=== PATIENT | female | born 1960 | race Caucasian/White ===

== ENCOUNTER 2017-04-27 17:59 | Emergency (ER) | payer OTHER ==
[2017-04-27 18:05] VITALS: BMI 25.8
--- NOTE | 2017-04-27 20:21 | PDOC ---
History of Present Illness - General History Source: Patient Exam Limitations: No Limitations - History of Present Illness Initial Comments: 04/27/17 20:28 The patient is a 56 year old female with significant past medical history of hypertension and GERD who presents to the ED for 6 days of right upper quadrant pain radiating to the right flank. Patient describes her pain as sharp in nature. Denies nausea, vomiting, or diarrhea. States she has somewhat of a appetite. Patient reports occasional dysuria, but no hematuria, urgency, or frequency. Unclear of fever. Patient states she is schedule for a endoscopy in a few days and is currently prepping for her procedure. The patient denies diaphoresis, chills, cough, SOB, chest pain, and palpitations. Allergies: Sulfa Social History: No alcohol, tobacco, or drug use reported. Past Surgical History: cholecystectomy PCP: Dr. Minerva Billingsley <Maia Vital - Last Filed: 04/27/17 20:28> - General History Source: Patient <Albert Holt - Last Filed: 04/27/17 22:50> - General Chief Complaint: Pain Stated Complaint: ABD PAIN Time Seen by Provider: 04/27/17 20:14 Past History <Maia Vital - Last Filed: 04/27/17 20:28> - Past Medical History HTN: Yes Suicide Attempt (Hx): No - Surgical History Cholecystectomy: Yes (2002) - Psycho/Social/Smoking Cessation Hx Anxiety: Yes Suicidal Ideation: No Smoking History: Former smoker Have you smoked in the past 12 months: No If you are a former smoker, when did you quit?: 16 years ago Information on smoking cessation initiated: No Hx Alcohol Use: No Drug/Substance Use Hx: No Substance Use Type: None <Albert Holt - Last Filed: 04/27/17 22:50> - Past Medical History Allergies/Adverse Reactions: Allergies Allergy/AdvReac Type Severity Reaction Status Date / Time Sulfa (Sulfonamide Allergy Severe Hives Verified 04/27/17 18:02 Antibiotics) Home Medications: Ambulatory Orders Fluticasone Propionate [Flonase Allergy Relief] 9.9 ml NS DAILY 04/22/15 Loratadine [Claritin -] 10 mg PO DAILY 04/22/15 Oxybutynin Chloride [Ditropan] 5 mg PO DAILY 04/22/15 Clindamycin [Cleocin -] 300 mg PO Q6HPO #28 capsule 03/20/16 Naproxen [Naprosyn -] 250 mg PO DAILY 03/20/16 Ranitidine HCl [Zantac] 150 mg PO DAILY 03/20/16 Levofloxacin [Levaquin -] 500 mg PO DAILY #7 tablet 04/27/17 Metronidazole [Flagyl] 500 mg PO BID #14 tablet 04/27/17 Oxycodone HCl/Acetaminophen [Percocet 5-325 mg Tablet] 1 - 2 tab PO Q6H #20 tablet MDD 4 04/27/17 Review of Systems - Review of Systems Able to Perform ROS?: Yes Comments:: 04/27/17 20:28 CONSTITUTIONAL: Absent: fever, no chills, no fatigue EYES: Absent: visual changes ENT: Absent: ear pain, no sore throat CARDIOVASCULAR: Absent: chest pain, no palpitations RESPIRATORY: Absent: cough, no SOB GI: +RUQ pain Absent: abdominal distension, nausea, vomiting, diarrhea, constipation , melena, hematochezia GENITOURINARY: +occasional dysuria, right flank pain Absent: frequency, urgency, hesitancy, hematuria, genital pain MUSCULOSKELETAL: Absent: back pain, no arthralgia, no myalgia SKIN: Absent: rash NEURO: Absent: headache <BharratAlexMaia - Last Filed: 04/27/17 20:28> *Physical Exam - Vital Signs Last Vital Signs Temp Pulse Resp BP Pulse Ox 98.1 F 91 H 18 160/94 100 04/27/17 18:03 04/27/17 18:03 04/27/17 18:03 04/27/17 18:03 04/27/17 18:03 - Physical Exam Comments: 04/27/17 20:28 GENERAL: Well-appearing, well-nourished. No apparent distress. HEENT: Normocephalic, atraumatic. PERRL, EOM intact. CARDIOVASCULAR: Normal S1, S2. Regular rate and rhythm. PULMONARY: Clear to auscultation bilaterally. ABDOMINAL: Soft. Non-tender. Non-distended. No rebound or guarding. No organomegaly. Normoactive bowel sounds. MUSCULOSKELETAL Normal range of motion at all joints. No bony deformities or tenderness. No CVA tenderness. EXTREMITIES: No cyanosis. No edema. No calf tenderness. SKIN: Warm, dry. No rash NEUROLOGICAL: No focal neurological deficits. <Maia Vital - Last Filed: 04/27/17 20:28> - Vital Signs Last Vital Signs Temp Pulse Resp BP Pulse Ox 98.1 F 91 H 18 160/94 100 04/27/17 18:03 04/27/17 18:03 04/27/17 18:03 04/27/17 18:03 04/27/17 18:03 <Albert Holt - Last Filed: 04/27/17 22:50> ED Treatment Course - LABORATORY CBC & Chemistry Diagram: 04/27/17 21:27 04/27/17 21:27 <Albert Holt - Last Filed: 04/27/17 22:50> Medical Decision Making - Medical Decision Making 04/27/17 22:50 Dr. Holt: The scribe's documentation has been prepared under my direction and personally reviewed by me in its entirery. I confirm that the note above accurately reflects all work, treatment, procedures, and medical decision making performed by me. <Albert Holt - Last Filed: 04/27/17 22:50> *DC/Admit/Observation/Transfer - Attestations Scribe Attestion: 04/27/17 20:28 Documentation prepared by Maia Vital, acting as medical leader for Albert Holt DO. <Maia Vital - Last Filed: 04/27/17 20:28> - Discharge Dispostion Admit: No <Albert Holt - Last Filed: 04/27/17 22:50> Diagnosis at time of Disposition: Colitis Diarrhea Qualifiers: Diarrhea type: unspecified type Qualified Code(s): R19.7 - Diarrhea, unspecified Abdominal pain Qualifiers: Abdominal location: generalized Qualified Code(s): R10.84 - Generalized abdominal pain - Discharge Dispostion Disposition: HOME Condition at time of disposition: Stable - Prescriptions Prescriptions: Metronidazole [Flagyl] 500 mg PO BID #14 tablet Levofloxacin [Levaquin -] 500 mg PO DAILY #7 tablet Oxycodone HCl/Acetaminophen [Percocet 5-325 mg Tablet] 1 - 2 tab PO Q6H #20 tablet MDD 4 - Referrals Referrals: Minerva Billingsley MD [Primary Care Provider] - Juan Mays MD [Staff Physician] - - Patient Instructions Printed Discharge Instructions: DI for Colitis Additional Instructions: Please follow up with Dr. Mays and take medication as directed.
[2017-04-27] MEDS ORDERED: LEVOFLOXACIN 500 MG IVPB 100 ML IVPB ONE (21:26)
[2017-04-27] MEDS ORDERED: METRONIDAZOLE 500 MG PREMIXED 100 ML IVPB ONE (21:26)
[2017-04-27 21:50] LABS: BASOPHIL 0.9 % (0-2.0); MCH 24.3 pg (25.7-33.7); MCHC 31.7 g/dl (32.0-36.0); MEAN CELL VOLUME 76.4 fl (80-96); NEUTROPHILS 51.3 % (42.8-82.8); PLATELET COUNT 313 K/MM3 (134-434); RDW 15.3 % (11.6-15.6)
[2017-04-27 22:22] LABS: ALBUMIN 3.2 g/dl (3.4-5.0); ALK PHOS 98 U/L (45-117); ANION GAP 7 (8-16); BILIRUBIN,TOTAL 0.3 mg/dL (0.2-1.0); CALCIUM 9.4 mg/dL (8.5-10.1); CO2 28 mmol/L (21-32); CREATININE 0.6 mg/dL (0.55-1.02); GLUCOSE,RANDOM 94 mg/dL (74-106); MAGNESIUM 2.2 mg/dL (1.8-2.4); SGOT/AST 18 U/L (15-37); SGPT/ALT 24 U/L (12-78); TOT PROT 5.8 g/dl (6.4-8.2)
[2017-04-27] MEDS ORDERED: LEVOFLOXACIN 500 MG TABLET (FP) PO ONE (22:41)
[2017-04-27] MEDS ORDERED: metroNIDAZOLE 250 MG TABLET PO ONE (22:41)
[2017-04-27] MEDS ORDERED: metroNIDAZOLE 250 MG TABLET ONE (22:44)
[2017-04-27] MEDS ORDERED: LEVOFLOXACIN 250 MG TABLET (FP) ONE (22:44)
[2017-04-27 23:21] LABS: URINE APPEARANCE CLEAR; URINE BILIRUBIN NEGATIVE (NEGATIVE); URINE BLOOD NEGATIVE (NEGATIVE); URINE COLOR YELLOW; URINE GLUCOSE (UA) NEGATIVE (NEGATIVE); URINE KETONE TRACE (NEGATIVE); URINE LEUK ESTERASE TRACE (NEGATIVE); URINE NITRITE NEGATIVE (NEGATIVE); URINE PROTEIN NEGATIVE (NEGATIVE); URINE UROBILINOGEN NEGATIVE mg/dL (0.2-1.0)
[2017-04-27 23:26] VITALS: BP 140/90; PULSE 86; TEMP 98.2
== END 2017-04-27 23:09 | disposition home or self-care (01) ==
LOC: JER 17:59
DX: K52.9 Noninfective gastroenteritis and colitis, unspecified (principal); R19.7 Diarrhea, unspecified; I10 Essential (primary) hypertension; K21.9 Gastro-esophageal reflux disease without esophagitis
CPT/HCPCS: 36415; 74176; 80053; 81003; 81015; 82150; 83690; 83735; 85025; 99282-25

== ENCOUNTER 2018-05-13 23:43 | Emergency (ER) | payer OTHER ==
[2018-05-14 00:03] VITALS: BP 130/80; PULSE 87; TEMP 98; BMI 25.7
--- NOTE | 2018-05-14 00:18 | PDOC ---
History of Present Illness - General History Source: Patient Exam Limitations: No Limitations - History of Present Illness Initial Comments: 05/14/18 01:27 The patient is a 57 year old female with past medical history of Vascular problems, L. lower extremity and back problem presents to the emergency department with thumb pain. The patient reports about a year ago, she pulled a hanging nail leading to an infection on the lateral aspect of the right 1st digit. The patient reports using 2 bactroban on the hand with improvement. The patient reports couple of weeks back the pain presented again. The patient reports following up at [facility]. The patient states she was prescribed Keflex for the hand. The patient reports being compliant with abx, takes it twice a day. The patient presents today with itchiness and irritation to the thumb Allergies: Sulfa. Social history: Former smoker. Past Surgical History: cholecystectomy PCP: Dr. Minerva Billingsley <Gretel Wahl - Last Filed: 05/14/18 01:26> <Jocelyne Ontiveros - Last Filed: 05/14/18 19:50> - General Chief Complaint: Wound Stated Complaint: FINGER INJURY Time Seen by Provider: 05/14/18 00:18 Past History <Gretel Wahl - Last Filed: 05/14/18 01:26> - Past Medical History COPD: No HTN: Yes - Surgical History Cholecystectomy: Yes (2002) - Immunization History Immunization Up to Date: Yes - Suicide/Smoking/Psychosocial Hx Smoking History: Former smoker Have you smoked in the past 12 months: No If you are a former smoker, when did you quit?: 16 years ago Information on smoking cessation initiated: No Hx Alcohol Use: No Drug/Substance Use Hx: No Substance Use Type: None <Jocelyne Ontiveros - Last Filed: 05/14/18 19:50> - Past Medical History Allergies/Adverse Reactions: Allergies Allergy/AdvReac Type Severity Reaction Status Date / Time Sulfa (Sulfonamide Allergy Severe Hives Verified 05/13/18 23:57 Antibiotics) Home Medications: Ambulatory Orders Lipase/Protease/Amylase [Madhavi Arzola 24,000 Units Capsule] 1 each PO DAILY Loratadine [Claritin] 10 mg PO PRN PRN 05/14/18 Naproxen [Naprosyn -] 250 mg PO BID 05/14/18 Oxybutynin Chloride 5 mg PO DAILY 05/14/18 Review of Systems - Review of Systems Able to Perform ROS?: Yes Comments:: 05/14/18 01:31 GENERAL/CONSTITUTIONAL: No fever or chills. No weakness. HEAD, EYES, EARS, NOSE AND THROAT: No change in vision. No ear pain or discharge. No sore throat. CARDIOVASCULAR: No chest pain or shortness of breath. RESPIRATORY: No cough, wheezing, or hemoptysis. GASTROINTESTINAL: No nausea, vomiting, diarrhea or constipation. GENITOURINARY: No dysuria, frequency, or change in urination. MUSCULOSKELETAL: (+) Pain to the right thumb. No joint or muscle swelling or pain. No neck or back pain. SKIN: No rash NEUROLOGIC: No headache, vertigo, loss of consciousness, or change in strength/ sensation. ENDOCRINE: No increased thirst. No abnormal weight change. HEMATOLOGIC/LYMPHATIC: No anemia, easy bleeding, or history of blood clots. ALLERGIC/IMMUNOLOGIC: No hives or skin allergy. <Gretel Wahl - Last Filed: 05/14/18 01:26> *Physical Exam - Vital Signs Last Vital Signs Temp Pulse Resp BP Pulse Ox 98.0 F 87 18 130/80 98 05/13/18 23:58 05/13/18 23:58 05/13/18 23:58 05/13/18 23:58 05/13/18 23:58 - Physical Exam Comments: 05/14/18 01:26 GENERAL: Awake, alert, and fully oriented, in no acute distress HEAD: No signs of trauma EYES: PERRLA, EOMI, sclera anicteric, conjunctiva clear ENT: Auricles normal inspection, hearing grossly normal, nares patent. Moist mucosa NECK: Normal ROM, supple, no lymphadenopathy, JVD, or masses LUNGS: Breath sounds equal, clear to auscultation bilaterally. No wheezes, and no crackles HEART: Regular rate and rhythm, normal S1 and S2, no murmurs, rubs or gallops ABDOMEN: Soft, nontender, normoactive bowel sounds. No guarding, no rebound. No masses EXTREMITIES: Normal range of motion, no edema. No erythema or tenderness. DP/PT pulses 2+ and symmetric. Warm and well perfused. (+) Finger: R. lateral aspect proximal nail bed little mass tissue with whitish pus with tenderness. NEUROLOGICAL: Moves all extremities. Normal speech, normal gait SKIN: Warm, Dry, normal turgor, no rashes or lesions noted. <Gretel Wahl - Last Filed: 05/14/18 01:26> - Vital Signs Last Vital Signs Temp Pulse Resp BP Pulse Ox 98.0 F 87 18 130/80 98 05/13/18 23:58 05/13/18 23:58 05/13/18 23:58 05/13/18 23:58 05/13/18 23:58 <Jocelyne Ontiveros - Last Filed: 05/14/18 19:50> Medical Decision Making - Medical Decision Making 05/14/18 19:49 Pt had a small I+D of her right thumb tip, at the area of the nail/paronychia. Little to no pus removed. Wound culture sent. Pt will be asked to continue her abx; she was given a tetanus vaccine and she is stable for dischage. She should follow with her PMD. <Jocelyne Ontiveros - Last Filed: 05/14/18 19:50> *DC/Admit/Observation/Transfer - Attestations Scribe Attestion: 05/14/18 01:32 Documentation prepared by Gretel Wahl, acting as medical instrument technician for Jocelyne Ontiveros MD. <Gretel Wahl - Last Filed: 05/14/18 01:26> - Discharge Dispostion Decision to Admit order: No <Jocelyne Ontiveros - Last Filed: 05/14/18 19:50> Diagnosis at time of Disposition: Paronychia - Discharge Dispostion Disposition: HOME Condition at time of disposition: Stable - Patient Instructions Printed Discharge Instructions: Tetanus, Diphtheria, and Pertussis Vaccine, DI for Paronychia - Post Discharge Activity Forms/Work/School Notes: Back to Work
[2018-05-14] MEDS ORDERED: ACETAMINOPHEN 325 MG TABLET (FP) ONE (00:19)
[2018-05-14] MEDS ORDERED: DIPHTH,PERTUSS(ACELL),TET 0.5 ML DISP.SYRIN IM ONE (00:56)
== END 2018-05-14 01:12 | disposition home or self-care (01) ==
LOC: JER 23:43
PROC: 3E0234Z Introduction of Serum, Toxoid and Vaccine into Muscle, Percutaneous Approach (ICD-10-PCS; principal; 2018-05-13)
PROC: 0J9J0ZZ Drainage of Right Hand Subcutaneous Tissue and Fascia, Open Approach (ICD-10-PCS; 2018-05-13)
DX: L03.011 Cellulitis of right finger (principal)
CPT/HCPCS: 10160; 87070; 87186; 87205; 90471; 90715; 99282-25

== ENCOUNTER 2018-06-01 22:27 | Emergency (ER) | payer OTHER ==
[2018-06-01 22:36] VITALS: BP 115/78; PULSE 81; TEMP 97.8; BMI 26.2
--- NOTE | 2018-06-01 22:44 | PDOC ---
History of Present Illness - General Chief Complaint: Sore Throat Stated Complaint: SORE THROAT Time Seen by Provider: 06/01/18 22:39 - History of Present Illness Initial Comments: 57-year-old female with sore throat times one week. She takes digestive enzymes for supplementation other than that she has no comorbidities. She has no other associated symptoms. 06/01/18 22:42 Past History - Past Medical History Allergies/Adverse Reactions: Allergies Allergy/AdvReac Type Severity Reaction Status Date / Time Sulfa (Sulfonamide Allergy Severe Hives Verified 06/01/18 22:37 Antibiotics) Home Medications: Ambulatory Orders Lipase/Protease/Amylase [Madhavi Arzola 24,000 Units Capsule] 1 each PO DAILY Loratadine [Claritin] 10 mg PO PRN PRN 05/14/18 Naproxen [Naprosyn -] 250 mg PO BID 05/14/18 Oxybutynin Chloride 5 mg PO DAILY 05/14/18 COPD: No HTN: Yes - Surgical History Cholecystectomy: Yes (2002) - Immunization History Immunization Up to Date: Yes - Suicide/Smoking/Psychosocial Hx Smoking History: Never smoked Have you smoked in the past 12 months: No If you are a former smoker, when did you quit?: 16 years ago Information on smoking cessation initiated: No Hx Alcohol Use: No Drug/Substance Use Hx: No Substance Use Type: None Review of Systems - Review of Systems HEENTM: Yes: Throat Pain All Other Systems: Reviewed and Negative *Physical Exam - Vital Signs Last Vital Signs Temp Pulse Resp BP Pulse Ox 97.8 F 81 16 115/78 100 06/01/18 22:34 06/01/18 22:34 06/01/18 22:34 06/01/18 22:34 06/01/18 22:34 - Physical Exam Comments: HEAD: NC/AT EYES: Conjuntiva clear Ears: Canals and TM's normal NOSE: No d/c THROAT: Moist mucous membrances, oral pharanx mildly injected, uvula midline NECK: Supple without adenopathy CARDIAC: S1 S2 LUNGS: CTA Full and Equal breath sounds ABDOMEN: Soft NT ND MS: Full ROM in all joints without edema NEUROLOGIC: No gross sensory or motor deficits, NVID SKIN: Normal color and temperature no lesions or rashes 06/01/18 22:43 *DC/Admit/Observation/Transfer Diagnosis at time of Disposition: Sore throat - Referrals - Patient Instructions - Post Discharge Activity
--- NOTE | 2018-06-01 23:02 | PDOC ---
*Physical Exam - Vital Signs Last Vital Signs Temp Pulse Resp BP Pulse Ox 97.8 F 81 16 115/78 100 06/01/18 22:34 06/01/18 22:34 06/01/18 22:34 06/01/18 22:34 06/01/18 22:34 - Physical Exam General Appearance: Yes: Appropriately Dressed. No: Apparent Distress HEENT: positive: EOMI, EDITH, TMs Normal, Pharyngeal Erythema. negative: Muffled /Hoarse voice, Tonsillar Exudate, Tonsillar Erythema Neck: positive: Trachea midline, Supple Respiratory/Chest: positive: Lungs Clear, Normal Breath Sounds. negative: Respiratory Distress, Accessory Muscle Use Cardiovascular: positive: Regular Rhythm, Regular Rate, S1, S2. negative: Edema , Murmur Progress Note - Progress Note Progress Note: Received signout from AMADOU cruz Briefly this is a 57-year-old woman without significant medical history presents with sore throat for one week. Patient 17-year-old daughter is here for evaluation a similar symptoms lasting 3 days. Patient is afebrile here in the emergency department vital signs are stable. At present patient is pending rapid strep testing for disposition. Medical Decision Making - Medical Decision Making 06/01/18 23:18 Rapid strep testing is negative for group A strep. I will discharge the patient home with symptomatic treatment of a viral pharyngitis. I discussed the physical exam findings, ancillary test results and final diagnoses with the patient. I answered all of the patient's questions. The patient was satisfied with the care received and felt comfortable with the discharge plan and treatment plan. The patient will call their primary care physician within 24 hours to arrange follow-up and will return to the Emergency Department with any new, persistent or worsening symptoms. *DC/Admit/Observation/Transfer Diagnosis at time of Disposition: Pharyngitis Qualifiers: Pharyngitis/tonsillitis etiology: unspecified etiology Qualified Code(s): J02.9 - Acute pharyngitis, unspecified - Discharge Dispostion Disposition: HOME Condition at time of disposition: Stable Decision to Admit order: No - Referrals - Patient Instructions Additional Instructions: Rest, drink lots of fluids: Teas, water, soups, Pedialyte Saltwater gargles Steamy showers/seem to face break up mucus Avoid contact with others until fevers and cough resolved Lots of handwashing and good hygiene Continue [id number] medications for symptomatic relief Tylenol or Motrin for fever and pain Followup with private physician in one to 2 days as needed Return to emergency department for worsened symptoms, fevers, dehydration - Post Discharge Activity
== END 2018-06-01 23:53 | disposition home or self-care (01) ==
LOC: JERFT 22:27 → JER 22:27
DX: J02.9 Acute pharyngitis, unspecified (principal); I10 Essential (primary) hypertension; Z88.2 Allergy status to sulfonamides
CPT/HCPCS: 87070; 87430; 99281-25

== ENCOUNTER 2019-01-17 20:39 | Emergency (ER) | payer OTHER ==
[2019-01-17 20:49] VITALS: BP 150/83; PULSE 98; TEMP 97.6; BMI 27.4
[2019-01-17] MEDS ORDERED: SODIUM CHLORIDE 0.9% 500 ML INFUS.BAG IV ONE (22:08)
--- NOTE | 2019-01-17 22:08 | PDOC ---
History of Present Illness - General Chief Complaint: Pain Stated Complaint: FEELING SICK Time Seen by Provider: 01/17/19 21:32 - History of Present Illness Initial Comments: 01/17/19 21:55 58-year-old female with a GI history she is unclear about. However she describes a now ordering of her esophagus and having a dilation procedure done. That was about a year ago and since that time she was tolerating a mash potato diet. Over the last few days she's been having trouble swallowing water. However today she is better. She presents the emergency room without systemic symptoms handling her secretions, requesting medication. Past History - Past Medical History Allergies/Adverse Reactions: Allergies Allergy/AdvReac Type Severity Reaction Status Date / Time Sulfa (Sulfonamide Allergy Severe Hives Verified 01/17/19 20:49 Antibiotics) Home Medications: Ambulatory Orders Lipase/Protease/Amylase [Creon Dr 24,000 Units Capsule] 1 each PO DAILY Loratadine [Claritin] 10 mg PO PRN PRN 05/14/18 Naproxen [Naprosyn -] 250 mg PO BID 05/14/18 Oxybutynin Chloride 5 mg PO DAILY 05/14/18 COPD: No HTN: Yes - Surgical History Cholecystectomy: Yes (2002) - Immunization History Immunization Up to Date: Yes - Suicide/Smoking/Psychosocial Hx Smoking History: Unknown if ever smoked Have you smoked in the past 12 months: No If you are a former smoker, when did you quit?: 16 years ago Information on smoking cessation initiated: No Hx Alcohol Use: No Drug/Substance Use Hx: No Substance Use Type: None Review of Systems - Review of Systems Constitutional: No: Fever ABD/GI: Yes: See HPI, Difficulty Swallowing *Physical Exam - Vital Signs Last Vital Signs Temp Pulse Resp BP Pulse Ox 97.6 F 98 H 16 150/83 100 01/17/19 20:47 01/17/19 20:47 01/17/19 20:47 01/17/19 20:47 01/17/19 20:47 - Physical Exam Comments: 01/17/19 21:56 HEAD: NC/AT EYES: Conjuntiva clear Ears: Canals and TM's normal NOSE: No d/c THROAT: Moist mucous membrances, oral pharanx clear, uvula midline NECK: Supple without adenopathy CARDIAC: S1 S2 LUNGS: CTA Full and Equal breath sounds ABDOMEN: Soft NT ND MS: Full ROM in all joints without edema NEUROLOGIC: No gross sensory or motor deficits, NVID SKIN: Normal color and temperature no lesions or rashes Medical Decision Making - Medical Decision Making 01/17/19 21:56 Patient has GI follow-up next week, she was given a by mouth challenge in the emergency room and she was able to tolerate water. I have discussed this case with emergency room attending and she is in agreement with the plan. Patient's family would like her to be seen by another provider at this point. 01/17/19 22:08 Attending evaluated pt, will run basic labs and give IV fluids 01/17/19 22:09 Transfered to [facility] *DC/Admit/Observation/Transfer Diagnosis at time of Disposition: Difficulty swallowing solids - Referrals - Patient Instructions - Post Discharge Activity
[2019-01-17 22:29] LABS: BASO % 0.9 % (0-2.0); HEMATOCRIT 28.6 % (32.4-45.2); HEMOGLOBIN 9.1 GM/dL (10.7-15.3); MCH 23.1 pg (25.7-33.7); MCHC 31.8 g/dl (32.0-36.0); MEAN CELL VOLUME 72.6 fl (80-96); MEAN PLT VOLUME 7.3 fl (7.5-11.1); MONO % 11.1 % (3.8-10.2); PLATELET COUNT 475 K/MM3 (134-434); RBC 3.95 M/mm3 (3.60-5.2); RDW 15.8 % (11.6-15.6); WHITE BLOOD COUNT 8.4 K/mm3 (4.0-10.0)
[2019-01-17 22:58] LABS: ALBUMIN 3.7 g/dl (3.4-5.0); BILIRUBIN,TOTAL 0.3 mg/dL (0.2-1); CREATININE 1.4 mg/dL (0.55-1.3); POTASSIUM 3.4 mmol/L (3.5-5.1); TOT PROT 7.3 g/dl (6.4-8.2)
--- NOTE | 2019-01-17 23:06 | PDOC ---
*Physical Exam - Vital Signs Last Vital Signs Temp Pulse Resp BP Pulse Ox 97.6 F 98 H 16 150/83 100 01/17/19 20:47 01/17/19 20:47 01/17/19 20:47 01/17/19 20:47 01/17/19 20:47 ED Treatment Course - LABORATORY CBC & Chemistry Diagram: 01/17/19 22:15 01/17/19 22:15 - ADDITIONAL ORDERS Additional order review: Laboratory Results 01/17/19 22:15 Sodium 136 Potassium 3.4 L Chloride 100 Carbon Dioxide 29 Anion Gap 6 L BUN 27 H Creatinine 1.4 H Est GFR (CKD-EPI)AfAm 47.55 Est GFR (CKD-EPI)NonAf 41.02 Random Glucose 128 H Calcium 10.0 Total Bilirubin 0.3 AST 28 ALT 28 Alkaline Phosphatase 154 H Total Protein 7.3 Albumin 3.7 01/17/19 22:15 RBC 3.95 MCV 72.6 L MCHC 31.8 L RDW 15.8 H MPV 7.3 L D Neutrophils % 56.0 Lymphocytes % 31.0 Monocytes % 11.1 H Eosinophils % 1.0 Basophils % 0.9 - Medications Given in the ED: ED Medications Discontinued Medications Generic Name Dose Route Start Last Admin Trade Name Freq PRN Reason Stop Dose Admin Sodium Chloride 1,000 ml 01/17/19 22:08 01/17/19 22:29 Normal Saline - IV 01/17/19 22:09 1,000 ml ONCE ONE Administration Medical Decision Making - Medical Decision Making 01/17/19 23:06 Patient seen by the advanced practice provider under my direct supervision. Ancillary testing reviewed as necessary. I agree with plan as outlined by the advanced practice provider. *DC/Admit/Observation/Transfer Diagnosis at time of Disposition: Difficulty swallowing solids - Referrals - Patient Instructions - Post Discharge Activity
[2019-01-17] MEDS ORDERED: SODIUM CHLORIDE 1,000 ML IV STA (23:11)
--- NOTE | 2019-01-18 00:11 | PDOC ---
*Physical Exam - Vital Signs Last Vital Signs Temp Pulse Resp BP Pulse Ox 97.6 F 98 H 16 150/83 100 01/17/19 20:47 01/17/19 20:47 01/17/19 20:47 01/17/19 20:47 01/17/19 20:47 - Physical Exam General Appearance: Yes: Appropriately Dressed Respiratory/Chest: positive: Lungs Clear ED Treatment Course - LABORATORY CBC & Chemistry Diagram: 01/17/19 22:15 01/17/19 22:15 - ADDITIONAL ORDERS Additional order review: Laboratory Results 01/17/19 22:15 Sodium 136 Potassium 3.4 L Chloride 100 Carbon Dioxide 29 Anion Gap 6 L BUN 27 H Creatinine 1.4 H Est GFR (CKD-EPI)AfAm 47.55 Est GFR (CKD-EPI)NonAf 41.02 Random Glucose 128 H Calcium 10.0 Total Bilirubin 0.3 AST 28 ALT 28 Alkaline Phosphatase 154 H Total Protein 7.3 Albumin 3.7 01/17/19 22:15 RBC 3.95 MCV 72.6 L MCHC 31.8 L RDW 15.8 H MPV 7.3 L D Neutrophils % 56.0 Lymphocytes % 31.0 Monocytes % 11.1 H Eosinophils % 1.0 Basophils % 0.9 - Medications Given in the ED: ED Medications Discontinued Medications Generic Name Dose Route Start Last Admin Trade Name Freq PRN Reason Stop Dose Admin Sodium Chloride 1,000 mls @ 1,000 mls/hr 01/17/19 23:11 01/17/19 23:22 Normal Saline - IV 01/18/19 00:10 1,000 mls/hr ASDIR STA Administration Sodium Chloride 1,000 ml 01/17/19 22:08 01/17/19 22:29 Normal Saline - IV 01/17/19 22:09 1,000 ml ONCE ONE Administration Medical Decision Making - Medical Decision Making tolerated Po water and chips. IVF x 2L completed. patient to have close Gi follow up. referrals given *DC/Admit/Observation/Transfer Diagnosis at time of Disposition: Difficulty swallowing solids - Discharge Dispostion Disposition: HOME - Referrals Referrals: Jodie Georges MD [Staff Physician] - Call tomorrow - Patient Instructions Printed Discharge Instructions: Oropharyngeal Dysphagia Additional Instructions: please follow up with a quality control operator as soon as possible. Additional Instructions: * Please call your personal physician to report your Emergency Department visit and to report your progress, if any. * If there is no improvement in symptoms in 2 days call your physician. * Return to the Emergency Department for any worsening symptoms. - Post Discharge Activity Forms/Work/School Notes: Back to Work
== END 2019-01-18 00:15 | disposition home or self-care (01) ==
LOC: JER 20:39 → JERFT 20:39 → JER 01-18 00:15
PROC: 3E0337Z Introduction of Electrolytic and Water Balance Substance into Peripheral Vein, Percutaneous Approach (ICD-10-PCS; principal; 2019-01-17)
DX: R13.10 Dysphagia, unspecified (principal); I10 Essential (primary) hypertension; Z87.891 Personal history of nicotine dependence
CPT/HCPCS: 36415; 80053; 85025; 99281-25; J7030

== ENCOUNTER 2019-08-28 21:21 | Inpatient (IN) | payer OTHER ==
--- NOTE | 2019-08-28 21:26 | PDOC ---
Rapid Medical Evaluation Chief Complaint: Pain Time Seen by Provider: 08/28/19 21:22 Medical Evaluation: Allergies Allergy/AdvReac Type Severity Reaction Status Date / Time Sulfa (Sulfonamide Allergy Severe Hives Verified 01/17/19 20:49 Antibiotics) 08/28/19 21:23 I performed a brief in-person evaluation of this patient. 58-year-old female with HTN, peripheral vascular disease, and recurrent cellulitis presenting with LLE redness and swelling with chills x 2 days. Pertinent physical exam findings: Afebrile LLE erythema, tenderness, mild edema I have ordered the following: Duplex LLE Basic labs Patient to proceed to: ED for further evaluation Discharge Disposition - Diagnosis Redness and swelling of lower leg - Referrals - Patient Instructions - Post Discharge Activity
[2019-08-28 21:59] LABS: EOS % 1.7 % (0-4.5); HEMATOCRIT 24.8 % (32.4-45.2); HEMOGLOBIN 7.7 GM/dL (10.7-15.3); LYMPH % 28.2 % (8-40); MCH 21.6 pg (25.7-33.7); MCHC 31.2 g/dl (32.0-36.0); MEAN PLT VOLUME 7.6 fl (7.5-11.1); MONO % 12.7 % (3.8-10.2); NEUT % 56.4 % (42.8-82.8); PLATELET COUNT 447 K/MM3 (134-434); RBC 3.59 M/mm3 (3.60-5.2); RDW 16.2 % (11.6-15.6); WHITE BLOOD COUNT 7.6 K/mm3 (4.0-10.0)
[2019-08-28 22:20] LABS: INR 1.04 (0.83-1.09); PROTHROMBIN TIME (PATIENT) 12.3 SEC (9.7-13.0)
[2019-08-28 22:26] LABS: ALBUMIN 3.5 g/dl (3.4-5.0); BILIRUBIN,TOTAL 0.2 mg/dL (0.2-1); BLOOD UREA NITROGEN 14.2 mg/dL (7-18); CALCIUM 9.8 mg/dL (8.5-10.1); CREATININE 0.9 mg/dL (0.55-1.3); POTASSIUM 3.8 mmol/L (3.5-5.1); TOT PROT 6.7 g/dl (6.4-8.2)
--- NOTE | 2019-08-28 23:31 | PDOC ---
History of Present Illness - General Chief Complaint: Pain Stated Complaint: LT LEG SWOLLEN Time Seen by Provider: 08/28/19 21:22 - History of Present Illness Initial Comments: HPI: 58yo F with PMH of HTN, vascular insufficiency following LLE debridement in 2010 due to infection, recurrent cellulitis presenting with LLE redness and swelling. Patient reports that she scratched her left lower leg on Wednesday. The next day, she noticed redness and swelling in the area, similar to when she has had cellulitis in the past. Reports she last had cellulitis and received IV antibiotics this past summer. Has had chills x 2 days, but denies fever. Reports normal po intake. Denies recent immobilization or history of DVT/PE. No chest pain or shortness of breath. PCP: Dr. Espinal ROS: Constitutional: no fever, +chills HEENT: no throat pain, no dysphagia Cardiovascular: no chest pain, no palpitations Respiratory: no cough, no shortness of breath Gastrointestinal: no abdominal pain, no nausea Genitourinary: no dysuria, no hematuria Musculoskeletal: no myalgia, no arthralgia Skin: no itching, +wound Neurologic: no syncope no weakness PE: General: Awake, alert, and fully oriented, in no acute distress Head: No signs of trauma Eyes: EOMI, sclera anicteric ENT: Moist mucus membranes Neck: Normal ROM, supple Lungs: Lungs clear, Normal breath sounds Cardio: Regular rhythm, S1 and S2 present Abdomen: Soft, nontender. No guarding, no rebound, no masses Extremities: Normal range of motion LLE swollen when compared to RLE; scabbed excoriations on anterior lower leg, hemostatic and not expressive of discharge, overlying area is warm indurated and tender, distal pulses present in BLE SKIN: Warm, Dry, normal turgor Neurologic: Cranial nerves II through XII grossly intact. Normal speech Rectal: The skin is without erythema or induration. Hemorrhoid present at six 'o ' clock. No fissures, skin tags, warts, or discharge. Sphincter tone normal. There are no masses palpated on digital exam. Light brown stool. ED Course/MDM: DDX including but not limited to cellulitis, abscess, DVT VS significant for tachycardia Rectal temp 100.0F Exam consistent with LLE cellulitis Per chart, +MRSA via right thumb wound in 2018 Labs, EKG, CXR 12/24/19 00:48 US as read by radiology: "COMPARISON: None. FINDINGS: There is no DVT in the left lower extremity. IMPRESSION: No DVT. THIS DOCUMENT HAS BEEN ELECTRONICALLY SIGNED Tani Durham MD 08/29/2019 00:25 EST" CBC WBC 7.6 K/mm3 (4.0-10.0) 08/28/19 21:41 RBC 3.59 M/mm3 (3.60-5.2) L 08/28/19 21:41 Hgb 7.7 GM/dL (10.7-15.3) L 08/28/19 21:41 Hct 24.8 % (32.4-45.2) L 08/28/19 21:41 MCV 69.0 fl (80-96) L 08/28/19 21:41 MCH 21.6 pg (25.7-33.7) L 08/28/19 21:41 MCHC 31.2 g/dl (32.0-36.0) L 08/28/19 21:41 RDW 16.2 % (11.6-15.6) H 08/28/19 21:41 Plt Count 447 K/MM3 (134-434) H 08/28/19 21:41 MPV 7.6 fl (7.5-11.1) 08/28/19 21:41 Absolute Neuts (auto) 4.3 K/mm3 (1.5-8.0) 08/28/19 21:41 Neutrophils % 56.4 % (42.8-82.8) 08/28/19 21:41 Lymphocytes % 28.2 % (8-40) 08/28/19 21:41 Monocytes % 12.7 % (3.8-10.2) H 08/28/19 21:41 Eosinophils % 1.7 % (0-4.5) 08/28/19 21:41 Basophils % 1.0 % (0-2.0) 08/28/19 21:41 Nucleated RBC % 0 % (0-0) 08/28/19 21:41 Hypochromia 2+ 08/28/19 21:41 Anisocytosis 1+ 08/28/19 21:41 Macrocytosis 1+ 08/28/19 21:41 No leukocytosis Hgb low at 7.7. Patient denies melena, bloody stool, or hematemesis. Denies history of colonoscopy. We will order FOBT. CMP Sodium 139 mmol/L (136-145) 08/28/19 21:41 Potassium 3.8 mmol/L (3.5-5.1) 08/28/19 21:41 Chloride 104 mmol/L (98-107) 08/28/19 21:41 Carbon Dioxide 30 mmol/L (21-32) 08/28/19 21:41 Anion Gap 5 MMOL/L (8-16) L 08/28/19 21:41 BUN 14.2 mg/dL (7-18) 08/28/19 21:41 Creatinine 0.9 mg/dL (0.55-1.3) 08/28/19 21:41 Est GFR (CKD-EPI)AfAm 81.11 08/28/19 21:41 Est GFR (CKD-EPI)NonAf 69.99 08/28/19 21:41 Random Glucose 93 mg/dL (74-106) 08/28/19 21:41 Calcium 9.8 mg/dL (8.5-10.1) 08/28/19 21:41 Total Bilirubin 0.2 mg/dL (0.2-1) 08/28/19 21:41 AST 16 U/L (15-37) 08/28/19 21:41 ALT 21 U/L (13-61) 08/28/19 21:41 Alkaline Phosphatase 111 U/L (45-117) 08/28/19 21:41 Total Protein 6.7 g/dl (6.4-8.2) 08/28/19 21:41 Albumin 3.5 g/dl (3.4-5.0) 08/28/19 21:41 Electrolytes unremarkable Normal Cr No transaminitis 08/29/19 00:56 po tylenol ordered for headache Blood cultures Vancomycin for MSRA coverage Pending EKG and CXR Patient's PCP, Dr. Espinal, is not in callbook. Plan for admission to symphony team 08/29/19 01:26 FOBT negative EKG: rate 92, QTc 410, sinus with 1st degree av block MB sent 08/29/19 02:[address] Larissa Graves who accepted patient for med/surg admission under Dr. Sykes 08/29/19 02:34 Hgb decreased to 6.7 (down from 7.7); message sent to inpatient team; microblog was opened by inpatient team 08/29/19 07:10 Past History - Past Medical History Allergies/Adverse Reactions: Allergies Allergy/AdvReac Type Severity Reaction Status Date / Time Sulfa (Sulfonamide Allergy Severe Hives Verified 08/28/19 21:26 Antibiotics) Home Medications: Ambulatory Orders Lipase/Protease/Amylase [Madhavi Arzola 24,000 Units Capsule] 1 each PO DAILY Loratadine [Claritin] 10 mg PO PRN PRN 05/14/18 Naproxen [Naprosyn -] 250 mg PO BID 05/14/18 Oxybutynin Chloride 10 mg PO DAILY 05/14/18 Ranitidine HCl [Zantac] 150 mg PO DAILY 08/29/19 COPD: No HTN: Yes Other medical history: scoliosis - Surgical History Cholecystectomy: Yes (2002) - Immunization History Immunization Up to Date: Yes - Psycho Social/Smoking Cessation Hx Smoking History: Former smoker Have you smoked in the past 12 months: No If you are a former smoker, when did you quit?: 16 years ago Information on smoking cessation initiated: No Hx Alcohol Use: No Drug/Substance Use Hx: No Substance Use Type: None *Physical Exam - Vital Signs Last Vital Signs Temp Pulse Resp BP Pulse Ox 97.8 F 109 H 18 157/82 98 08/28/19 21:22 08/28/19 21:22 08/28/19 21:22 08/28/19 21:22 08/28/19 21:22 ED Treatment Course - LABORATORY CBC & Chemistry Diagram: 08/29/19 05:47 08/29/19 05:47 - ADDITIONAL ORDERS Additional order review: Laboratory Results 08/28/19 08/28/19 21:41 21:41 PT with INR 12.30 INR 1.04 Sodium 139 Potassium 3.8 Chloride 104 Carbon Dioxide 30 Anion Gap 5 L BUN 14.2 Creatinine 0.9 Est GFR (CKD-EPI)AfAm 81.11 Est GFR (CKD-EPI)NonAf 69.99 Random Glucose 93 Calcium 9.8 Total Bilirubin 0.2 AST 16 ALT 21 Alkaline Phosphatase 111 Total Protein 6.7 Albumin 3.5 08/28/19 21:41 RBC 3.59 L MCV 69.0 L MCHC 31.2 L RDW 16.2 H MPV 7.6 Neutrophils % 56.4 Lymphocytes % 28.2 Monocytes % 12.7 H Eosinophils % 1.7 Basophils % 1.0 Discharge - Discharge Information Problems reviewed: Yes Clinical Impression/Diagnosis: Redness and swelling of lower leg Cellulitis Qualifiers: Site of cellulitis: extremity Site of cellulitis of extremity: lower extremity Laterality: left Qualified Code(s): L03.116 - Cellulitis of left lower limb Anemia Qualifiers: Anemia type: unspecified type Qualified Code(s): D64.9 - Anemia, unspecified Condition: Guarded - Admission Yes - Follow up/Referral - Patient Discharge Instructions - Post Discharge Activity
--- NOTE | 2019-08-28 23:47 | PDOC ---
Attending Attestation - Resident Resident Name: Roxana Jackson - ED Attending Attestation I have performed the following: I have examined & evaluated the patient, The case was reviewed & discussed with the resident, I agree w/resident's findings & plan - HPI HPI: 08/29/19 01:11 see resident hpi - Physicial Exam PE: 08/29/19 01:11 agree with resident exam - Medical Decision Making 08/29/19 01:11 58-year-old female with worsening left leg swelling and redness Ultrasound of the left lower extremity is negative for DVT It appears patient has been scratching the area Though patient is afebrile with no elevated white blood cell count there is extensive swelling and redness to the area, she will be admitted for antibiotics and further evaluation Stool guaiac sent for decreasing H&H Antibiotics with MRSA coverage
[2019-08-28 23:59] LABS: ANISOCYTOSIS 1+; MACROCYTOSIS 1+
[2019-08-29] MEDS ORDERED: VANCOMYCIN 1,000 MG in DEXTROSE 5%-WATER - 250 ML IVPB ONE (01:19)
[2019-08-29] MEDS ORDERED: ACETAMINOPHEN 325 MG TABLET (FP) PO ONE (01:26)
[2019-08-29] MEDS ORDERED: ACETAMINOPHEN 325 MG TABLET (FP) ONE (01:27)
[2019-08-29] MEDS ORDERED: VANCOMYCIN 1 GRAM (PRE-DOCKED) 1,000 MG/250 ML BAG IVPB ONE (01:59)
--- NOTE | 2019-08-29 03:00 | PN ---
Teaching Attending Note Name of Resident: Larissa Graves ATTENDING PHYSICIAN STATEMENT I saw and evaluated the patient. I reviewed the resident's note and discussed the case with the resident. I agree with the resident's findings and plan as documented. SUBJECTIVE: Patient is 58 year old woman with PMH of HTN, Dysphagia, MRSA infection of right thumb wound, Peripheral vascular insufficiency and Recurrent cellulitis presenting with LLE redness and swelling. Patient reports that she scratched her left lower leg on Wednesday. The next day, she noticed redness and swelling in the area, similar to when she had cellulitis in the past. Reports she last had cellulitis and received IV antibiotics this past summer. Has had chills for 2 days, but denies fever. Reports normal oral intake. Denies recent immobilization or history of DVT/PE. Denies chest pain, shortness of breath, nausea, vomiting, diarrhea, headache, abdominal pain or dizziness. No recent travel or sick contacts. Denies alcohol, tobacco or illicit drug use. OBJECTIVE: Alert Vital Signs Period Temp Pulse Resp BP Sys/Pittman Pulse Ox Last 24 Hr 97.8 F-100 F 109 18 157/82 98 HEENT: No Jaundice, eye redness or discharge, PERRLA, EOMI. Normocephalic, atraumatic. External ears are normal and hearing is grossly intact. No nasal discharge. Neck: Supple, nontender. No palpable adenopathy; ?thyroid nodule. No JVD Chest: Good effort. Clear to auscultation and percussion. Heart: Regular. No S3, rub or murmur Abdomen: Not distended, soft, nontender and no HSM. No rebound or guarding. Normal bowel sounds. Ext: Peripheral pulses intact. Bilateral leg edema (L>R), erythema and excoriations on LLE with areas of skin breakdown. Skin: Warm and dry. No petechiae, rash or ecchymosis. Neuro: Alert. Oriented x3. CN 2-12 grossly intact. Sensation grossly intact in all four extremities and DTR are symmetric. Psych: Appropriate mood and affect. Good insight. Home Medications Medication Instructions Recorded Lipase/Protease/Amylase [Madhavi Arzola 1 each PO DAILY 05/14/18 24,000 Units Capsule] Loratadine [Claritin] 10 mg PO PRN PRN 05/14/18 Naproxen [Naprosyn -] 250 mg PO BID 05/14/18 Oxybutynin Chloride 5 mg PO DAILY 05/14/18 Abnormal Lab Results 08/28/19 08/28/19 21:41 21:41 RBC 3.59 L Hgb 7.7 L Hct 24.8 L MCV 69.0 L MCH 21.6 L MCHC 31.2 L RDW 16.2 H Plt Count 447 H Monocytes % 12.7 H Anion Gap 5 L ASSESSMENT AND PLAN: 1. LLE cellulitis - Sepsis workup done and being treated with IV vancomycin. Place on isolation and consult ID. No DVT on leg doppler. No acute abnormality on CXR. EKG shows NSR with 1o AV block and nonspecific T wave abnormalities. Will get TSH and thyroid sonogram. Will continue comprehensive care for all of patients comorbid conditions. 2. Anemia with low MCV - Cause unclear.Will do basic anemia work up including serial stool guaiacs, reticulocyte count and iron studies. GI referral for colonoscopy. Would benefit from Procrit therapy once iron replete. 3. Hypertension - Restart suitable outpatient antihypertensive drugs when clinically appropriate. Revise regimen to ensure [id number] excellent BP control and general counselor patient on the injurious effects of uncontrolled hypertension. Nonpharmacologic measures to control hypertension like weight loss , salt restriction and exercise discussed. Importance of adherence to treatment regimen and attainment of normotension emphasized. 4. DVT prophylaxis - Lovenox 40 mg SQ q 24 hours. 5. Advance directives - Full code
--- NOTE | 2019-08-29 03:32 | HP ---
CHIEF COMPLAINT: Lower extremity edema and erythema PCP: HISTORY OF PRESENT ILLNESS: 58 yo F PMH of HTN, chronic venous insufficiency, GERD, dysphagia, recurrent cellulitis presents to ED for erythema, swelling and pain of L LE. pt states that the leg first was pruritic on wednesday, she states that the increased erythema and edema worsened over the past day. she states that she has been getting cellulitis frequently since she had a LLE debridement for chronic venous insufficiency 2 years ago. her last cellulitis was in april, which she reports she was treated with PO clinda. pt states that she has chills. she denies fevers, nausea, vomiting. ER course was notable for: (1)empiric vanc (2)Blood cultures Recent Travel: denies PAST MEDICAL HISTORY: HTN, chronic venous insufficiency, GERD, dysphagia, recurrent cellulitis PAST SURGICAL HISTORY: cholecystectomy LLE debridement lithotripsy Social History: Smoking:denies Alcohol:denies Drugs: denies Allergies Sulfa (Sulfonamide Antibiotics) Allergy (Severe, Verified 08/28/19 21:26) Hives HOME MEDICATIONS: Home Medications Medication Instructions Recorded Lipase/Protease/Amylase [Madhavi Dr 1 each PO DAILY 05/14/18 24,000 Units Capsule] Loratadine [Claritin] 10 mg PO PRN PRN 05/14/18 Naproxen [Naprosyn -] 250 mg PO BID 05/14/18 Oxybutynin Chloride 5 mg PO DAILY 05/14/18 REVIEW OF SYSTEMS CONSTITUTIONAL: Present: chills Absent: fever, diaphoresis, generalized weakness, malaise, loss of appetite, weight change HEENT: Present: difficulty swallowing Absent: rhinorrhea, nasal congestion, throat pain, throat swelling, mouth swelling, ear pain, eye pain, visual changes CARDIOVASCULAR: Absent: chest pain, syncope, palpitations, irregular heart rate, lightheadedness , peripheral edema RESPIRATORY: Absent: cough, shortness of breath, dyspnea with exertion, orthopnea, wheezing, stridor, hemoptysis GASTROINTESTINAL: Absent: abdominal pain, abdominal distension, nausea, vomiting, diarrhea, constipation, melena, hematochezia GENITOURINARY: Absent: dysuria, frequency, urgency, hesitancy, hematuria, flank pain, genital pain MUSCULOSKELETAL: Absent: myalgia, arthralgia, joint swelling, back pain, neck pain SKIN: Present: itching , erythema b/l LE Absent: pallor HEMATOLOGIC/IMMUNOLOGIC: Absent: easy bleeding, easy bruising, lymphadenopathy, frequent infections ENDOCRINE: Absent: unexplained weight gain, unexplained weight loss, heat intolerance, cold intolerance NEUROLOGIC: Absent: headache, focal weakness or paresthesias, dizziness, unsteady gait, seizure, mental status changes, bladder or bowel incontinence PSYCHIATRIC: Absent: anxiety, depression, suicidal or homicidal ideation, hallucinations. PHYSICAL EXAMINATION Vital Signs - 24 hr 08/28/19 08/29/19 21:22 01:24 Temperature 97.8 F 100 F H Pulse Rate 109 H Respiratory 18 Rate Blood Pressure 157/82 O2 Sat by Pulse 98 Oximetry (%) GENERAL: Awake, alert, and fully oriented, in no acute distress. HEAD: Normal with no signs of trauma. EYES: Pupils equal, round and reactive to light, extraocular movements intact, sclera anicteric, conjunctiva clear. No lid lag. EARS, NOSE, THROAT: nares patent, oropharynx clear without exudates. Moist mucous membranes. NECK: Normal range of motion, supple without lymphadenopathy, JVD, or masses. possible thyroid nodule on L LUNGS: Breath sounds equal, clear to auscultation bilaterally. No wheezes, and no crackles. No accessory muscle use. HEART:tachycardic and regular rhythm, normal S1 and S2 without murmur, rub or gallop. ABDOMEN: Soft, nontender, not distended, normoactive bowel sounds, no guarding, no rebound, no masses. No hepatomegaly or splenomegaly. MUSCULOSKELETAL: Normal range of motion at all joints. No bony deformities or tenderness. No CVA tenderness. UPPER EXTREMITIES: 2+ pulses, warm, well-perfused. No cyanosis. No clubbing. No peripheral edema. LOWER EXTREMITIES: L calf edema and erythema, hot, excoriation on anterior tibia. R LE also edematous and erythematous, no excoriations NEUROLOGICAL: Cranial nerves II-XII intact. Normal speech. SKIN: Warm, dry, normal turgor, no rashes or lesions noted, normal capillary refill. Laboratory Last Values WBC 7.6 K/mm3 (4.0-10.0) 08/28/19 21:41 RBC 3.59 M/mm3 (3.60-5.2) L 08/28/19 21:41 Hgb 7.7 GM/dL (10.7-15.3) L 08/28/19 21:41 Hct 24.8 % (32.4-45.2) L 08/28/19 21:41 MCV 69.0 fl (80-96) L 08/28/19 21:41 MCH 21.6 pg (25.7-33.7) L 08/28/19 21:41 MCHC 31.2 g/dl (32.0-36.0) L 08/28/19 21:41 RDW 16.2 % (11.6-15.6) H 08/28/19 21:41 Plt Count 447 K/MM3 (134-434) H 08/28/19 21:41 MPV 7.6 fl (7.5-11.1) 08/28/19 21:41 Absolute Neuts (auto) 4.3 K/mm3 (1.5-8.0) 08/28/19 21:41 Neutrophils % 56.4 % (42.8-82.8) 08/28/19 21:41 Lymphocytes % 28.2 % (8-40) 08/28/19 21:41 Monocytes % 12.7 % (3.8-10.2) H 08/28/19 21:41 Eosinophils % 1.7 % (0-4.5) 08/28/19 21:41 Basophils % 1.0 % (0-2.0) 08/28/19 21:41 Nucleated RBC % 0 % (0-0) 08/28/19 21:41 Hypochromia 2+ 08/28/19 21:41 Anisocytosis 1+ 08/28/19 21:41 Macrocytosis 1+ 08/28/19 21:41 PT with INR 12.30 SEC (9.7-13.0) 08/28/19 21:41 INR 1.04 (0.83-1.09) 08/28/19 21:41 Sodium 139 mmol/L (136-145) 08/28/19 21:41 Potassium 3.8 mmol/L (3.5-5.1) 08/28/19 21:41 Chloride 104 mmol/L (98-107) 08/28/19 21:41 Carbon Dioxide 30 mmol/L (21-32) 08/28/19 21:41 Anion Gap 5 MMOL/L (8-16) L 08/28/19 21:41 BUN 14.2 mg/dL (7-18) 08/28/19 21:41 Creatinine 0.9 mg/dL (0.55-1.3) 08/28/19 21:41 Est GFR (CKD-EPI)AfAm 81.11 08/28/19 21:41 Est GFR (CKD-EPI)NonAf 69.99 08/28/19 21:41 Random Glucose 93 mg/dL (74-106) 08/28/19 21:41 Calcium 9.8 mg/dL (8.5-10.1) 08/28/19 21:41 Total Bilirubin 0.2 mg/dL (0.2-1) 08/28/19 21:41 AST 16 U/L (15-37) 08/28/19 21:41 ALT 21 U/L (13-61) 08/28/19 21:41 Alkaline Phosphatase 111 U/L (45-117) 08/28/19 21:41 Total Protein 6.7 g/dl (6.4-8.2) 08/28/19 21:41 Albumin 3.5 g/dl (3.4-5.0) 08/28/19 21:41 Stool Occult Blood Negative (NEGATIVE) 08/29/19 01:20 ASSESSMENT/PLAN: 58 yo F PMH of HTN, chronic venous insufficiency, GERD, dysphagia, recurrent cellulitis presents to ED for erythema, swelling and pain of L LE.Pt is admitted for b/l cellulitis of LE Cellulitis - likely 2/2 chronic venous insufficiency - doppler was negative for DVT - c/w empiric vanc , pt had MRSA from a different wound in 2018 . pending mrsa screen - pending blood cultures -encourage hydration - wound care eval appreciated - pt was pruritic throughout body , benadryl given Microcytic Anemia , acute vs chronic - pending iron studies -FOBT negative - GI recs appreciated - pt is asymptomatic HTN - med rec needed - continue to monitor Dysphagia - TSH 0.82 - consider speech and swallow eval, possible barium swallow - pt states that she has had endoscopy at [facility] a few years ago F/E/N - monitor lytes - soft low na diet DVT ppx: lovenox Visit type - Emergency Visit Emergency Visit: Yes ED Registration Date: 08/29/19 Care time: The patient presented to the Emergency Department on the above date and was hospitalized for further evaluation of their emergent condition. - New Patient This patient is new to me today: Yes Date on this admission: 09/11/19 - Critical Care Critical Care patient: No ATTENDING PHYSICIAN STATEMENT I saw and evaluated the patient. I reviewed the resident's note and discussed the case with the resident. I agree with the resident's findings and plan as documented. SUBJECTIVE: OBJECTIVE: ASSESSMENT AND PLAN:
[2019-08-29] MEDS ORDERED: diphenhydrAMINE HCL 25 MG CAPSULE (FP) PO ONE (03:34)
[2019-08-29 06:40] LABS: EOS % 2.1 % (0-4.5); HEMATOCRIT 21.2 % (32.4-45.2); LYMPH % 31.9 % (8-40); MCH 21.6 pg (25.7-33.7); MCHC 31.6 g/dl (32.0-36.0); MEAN CELL VOLUME 68.3 fl (80-96); MEAN PLT VOLUME 7.8 fl (7.5-11.1); MONO % 13.4 % (3.8-10.2); NEUT % 51.6 % (42.8-82.8); PLATELET COUNT 357 K/MM3 (134-434); RBC 3.11 M/mm3 (3.60-5.2); WHITE BLOOD COUNT 6.4 K/mm3 (4.0-10.0)
[2019-08-29 06:43] LABS: HEMOGLOBIN 6.7 GM/dL (10.7-15.3)
[2019-08-29 06:54] LABS: ALBUMIN 2.9 g/dl (3.4-5.0); BILIRUBIN,TOTAL 0.4 mg/dL (0.2-1); MAGNESIUM 2.1 mg/dL (1.8-2.4); PHOSPHOROUS 3.5 mg/dL (2.5-4.9); POTASSIUM 3.3 mmol/L (3.5-5.1); TOT PROT 5.6 g/dl (6.4-8.2)
[2019-08-29] MEDS ORDERED: FLU VACCINE QUAD 60 MCG/0.5 ML (MDV 19-20) IM ONE (08:26)
--- NOTE | 2019-08-29 08:30 | CON.GI ---
Consult Consult Specialty:: GI Referred by:: Dr Larissa Graves Reason for Consultation:: Anemia, Dysphagia - History of Present Illness History of Present Illness: Patient is a 58 y/o female with past medical history of HTN, Chronic Venous Insufficiency, GERD, dysphagia, and recurrent cellulitis. Consult was placed for patient having anemia and dysphagia. patient states experiencing dysphagia for more than 1 year. Patient states having more difficulty swallowing solids compared to liquids. Previously had Esophagram performed which showed moderate hiatal hernia of gastric diverticulum s/p cholecystectomy and esophageal stricture. Patient did not follow up for further evaluation of esophageal stricture. On admission labs show downtrend in Hg from 7.7 to 6.7. She denies rectal bleeding, blood in stool, melena. Denies nausea, vomiting, abdominal pain, diarrhea, constipation. Patient is tolerating diet well. She missed her appointment. She was scheduled to see me in the office in September 11. - History Source History Provided By: Patient Limitations to Obtaining History: No Limitations - Past Medical History Cardio/Vascular: Yes: HTN Gastrointestinal: Yes: GERD - Past Surgical History Past Surgical History: Yes: Cholecystectomy (2003) - Alcohol/Substance Use Hx Alcohol Use: No - Smoking History Smoking history: Former smoker Have you smoked in the past 12 months: No If you are a former smoker, when did you quit?: 16 years ago - Social History ADL: Independent History of Recent Travel: No Home Medications - Allergies Allergies/Adverse Reactions: Allergies Allergy/AdvReac Type Severity Reaction Status Date / Time Sulfa (Sulfonamide Allergy Severe Hives Verified 08/28/19 21:26 Antibiotics) - Home Medications Home Medications: Ambulatory Orders Lipase/Protease/Amylase [Madhavi Arzola 24,000 Units Capsule] 1 each PO DAILY Loratadine [Claritin] 10 mg PO PRN PRN 05/14/18 Naproxen [Naprosyn -] 250 mg PO BID 05/14/18 Oxybutynin Chloride 10 mg PO DAILY 05/14/18 Ranitidine HCl [Zantac] 150 mg PO DAILY 08/29/19 Review of Systems - Review of Systems Constitutional: reports: Loss of Appetite, Unintentional Wgt. Loss Eyes: reports: No Symptoms HENT: reports: No Symptoms Neck: reports: No Symptoms Cardiovascular: reports: No Symptoms Respiratory: reports: No Symptoms Gastrointestinal: reports: Dysphagia Genitourinary: reports: No Symptoms Breasts: reports: No Symptoms Reported Musculoskeletal: reports: No Symptoms Integumentary: reports: No Symptoms Neurological: reports: No Symptoms Endocrine: reports: No Symptoms Hematology/Lymphatic: reports: No Symptoms Psychiatric: reports: No Symptoms Physical Exam-GI Vital Signs: Vital Signs Temperature 100 F H 08/29/19 01:24 Pulse Rate 109 H 08/28/19 21:22 Respiratory Rate 18 08/28/19 21:22 Blood Pressure 157/82 08/28/19 21:22 O2 Sat by Pulse Oximetry (%) 98 08/29/19 01:30 Constitutional: Yes: No Distress, Calm Eyes: Yes: Conjunctiva Clear HENT: Yes: Atraumatic Cardiovascular: Yes: Regular Rate and Rhythm Respiratory: Yes: Regular, CTA Bilaterally Gastrointestinal Inspection: Yes: WNL. No: Ascites, Distention, Hernia, Scars, Other ...Auscultate: Yes: Normoactive Bowel Sounds. No: Hyperactive Bowel Sounds, Hypoactive Bowel Sounds, No Bowel Sounds, Other ...Palpate: Yes: Soft. No: Firm/Rigid, Guarding, Hepatomegaly, Mass, Pulsatile Mass, Splenomegaly, Tenderness, Tenderness, Epigastium, Tenderness, Rebound, Other ...Percussion: Yes: Tympanitic. No: Dullness, Fluid Wave, Other Neurological: Yes: Alert, Oriented Psychiatric: Yes: Alert, Oriented Labs: CBC, BMP 08/29/19 05:47 08/29/19 05:47 INR, PTT INR 1.04 (0.83-1.09) 08/28/19 21:41 Problem List - Problems (1) Anemia Assessment/Plan: associated with dysphagia >monitor Hg daily >transfuse if Hg <8.0 >patient will have inpatient EGD to dilate espohageal strictures >transfuse PRBC prior to EGD for Hg >8.0 >Stool OB neg will need EGD and colonoscopy as an outpatient. The patient was made aware to follow up Code(s): D64.9 - ANEMIA, UNSPECIFIED Qualifiers: Anemia type: unspecified type Qualified Code(s): D64.9 - Anemia, unspecified
--- NOTE | 2019-08-29 09:42 | CONSULT ---
Admitting History and Physical - Primary Care Physician PCP: Lokesh Garcia - Admission History of Present Illness: Per EMR- Per GI- 58 y/o female with past medical history of HTN, Chronic Venous Insufficiency, GERD, dysphagia, and recurrent cellulitis. Patient states experiencing dysphagia for more than 1 year. Patient is having difficulty swallowing solids compared to liquids. Esophagram performed which showed moderate hiatal hernia of gastric diverticulum s/p cholecystectomy and esophageal stricture. Patient did not follow up for further evaluation of esophageal stricture. Per GI-Anemia >monitor Hg daily >transfuse if Hg <8.0 >patient will have inpatient EGD to dilate espohageal strictures >transfuse PRBC prior to EGD for Hg >8.0 >Stool OB neg Selected Entries 08/28/19 08/29/19 08/29/19 21:22 01:24 08:02 Temperature 97.8 F 100 F H 98.8 F Laboratory Tests 08/28/19 08/29/19 21:41 05:47 WBC 7.6 6.4 History Source: Patient Limitations to Obtaining History: No Limitations - Past Medical History Cardiovascular: Yes: HTN Gastrointestinal: Yes: GERD - Past Surgical History Past Surgical History: Yes: Cholecystectomy (2003) - Smoking History Smoking history: Former smoker Have you smoked in the past 12 months: No If you are a former smoker, when did you quit?: 16 years ago - Alcohol/Substance Use Hx Alcohol Use: No - Social History ADL: Independent History of Recent Travel: No History - Admission Reason For Visit: ANEMIA,CELLULITIS - Diagnostics X-ray: Report Reviewed - General Mental Status: Alert and Oriented, Awake and Alert, Able to Follow Commands Attention: Distractible, Mild Impairment Ability to Follow Directions: Good Head/Neck Control: Good - Hearing Hearing: Functional Hearing: Normal Speech Evaluation - Communication Primary Language: PALAUAN - Speech Production Able to Make Needs Known: Yes: WNL Intelligibility: Yes: Mildly Impaired (VERY RAPID SPEECH, press for speech, impulsive, tangential.), Moderately Impaired - Speech Characteristics Voice Loudness: Normal Voice Pitch: Yes: Normal Voice Phonatory-based Quality: Yes: Dysphonia (mild) Speech Pattern: Impaired Speech Clarity: < 75% Nasal Resonance: Normal Rate of Speech: Too Fast - Language/Auditory Comprehension Observation: Able to respond to yes/no queries: Yes, Yes/No Confusion: No, Comprehends Conversational Speech: Yes - Language/Verbal Expression Able to Communicate Wants and Needs: Yes: WNL - Swallow Evaluation/Bedside Assessment Current Nutritional Intake: Soft, Thin Liquids Oral Secretions: Yes: WFL Dentition: Yes: Adequate Facial Symmetry at Rest: Facial Droop Right Facial Symmetry on Retraction: Symmetrical Facial Movement: Controlled Against Resistance Opening: Normal Against Resistance Closing: Normal Pucker Lips: Normal Smile: Normal Lingual Movement: Normal, Symmetric Lingual Speed of Movement: Normal Lingual Movement Strgth Against Opposition: Normal Lingual Movement Characteristics: Normal Laryngeal Elevation: Impaired Laryngeal Movement: Labored,delay initiation Rate of Intake: Slow/Holding Bolus Size: Small Chewing: Impaired Oral Prep Time: Increased A-P Transit: WFL Timing of Swallow: Delayed Coughing/Throat Clear: No Change in Voice: No Recommendations - Speech Evaluation, Impression/Plan Impression: VERY RAPID SPEECH, press for speech, impulsive, tangential. Etiology ? Does pt have a psychiatric hx? Chewing seems incomplete and inefficient, swallow more labored with solids? h/o esophageal stricture, pending EGD. Suspect jr-pharyngeal (stasis?) and esophageal dysphagia (stricture) - Dysphagia Impressions/Plan Swallowing Skills: Impaired Dysphagia Impressions: Ongoing Evaluation Dysphagia Treatment Plan: Small Bites, Chin Tuck/Down, Clear Pocket Food, Facilitative Feeding, Safe Rate, 1/2 tsp. at a time, OOB for meals, OOB for 1 h. after meals Recommendations: MBS w Esophagus (after egd?) - Recommendations Diet Consistency: Other (chopped diet, moist soft, easy to chew) Liquids: Thin Liquids Supplement: Ensure
[2019-08-29] MEDS: PANTOPRAZOLE SODIUM 40 MG VIAL IVPUSH SCH (09:44)
[2019-08-29] MEDS ORDERED: ENOXAPARIN NA (PORCINE) 40 MG/0.4 ML DISP.SYRIN SQ SCH (10:00)
[2019-08-29] MEDS ORDERED: PANTOPRAZOLE SODIUM 40 MG in SODIUM CHLORIDE 100 ML IVPB SCH (10:00)
--- NOTE | 2019-08-29 10:15 | EKG ---
Test Reason : Blood Pressure : / mmHG Vent. Rate : 092 BPM Atrial Rate : 092 BPM P-R Int : 216 ms QRS Dur : 106 ms QT Int : 332 ms P-R-T Axes : 050 023 065 degrees QTc Int : 410 ms SINUS RHYTHM WITH 1ST DEGREE A-V BLOCK NONSPECIFIC T WAVE ABNORMALITY ABNORMAL ECG WHEN COMPARED WITH ECG OF 08-FEB-2010 21:26, MINIMAL CRITERIA FOR INFERIOR INFARCT ARE NO LONGER PRESENT NONSPECIFIC T WAVE ABNORMALITY NO LONGER EVIDENT IN INFERIOR LEADS Confirmed by Trung Mauricio MD ([id number]) on 08/29/2019 10:14:35 AM Referred By: Confirmed By:Trung Mauricio MD
--- NOTE | 2019-08-29 10:26 | CONSULT ---
- Consultation REQUESTING PROVIDER: CONSULT REQUEST: We have been asked to surgically evaluate this patient for ( specify). PCP:Lokesh Garcia MD HISTORY OF PRESENT ILLNESS: 58yo F with PMH of HTN, vascular insufficiency following LLE debridement at [facility] in 2010 due to infection, recurrent cellulitis presenting with LLE redness and swelling. Patient reports that she scratched her left lower leg on Wednesday. The next day, she noticed redness and swelling in the area, similar to when she has had cellulitis in the past. Reports she last had cellulitis and received IV antibiotics this past summer. Has had chills x 2 days, but denies fever. She denies any other rashes or lesion elsewhere on the body. Reports normal po intake. Denies recent immobilization or history of DVT/PE. No chest pain or shortness of breath. Labs revealed Hgb low at 7.7. Patient denies melena, bloody stool, or hematemesis. Denies history of colonoscopy-FOBT was also found to be negative. PCP: Dr. Espinal Allergies/Adverse Reactions: Allergies Allergy/AdvReac Type Severity Reaction Status Date / Time Sulfa (Sulfonamide Allergy Severe Hives Verified 08/28/19 21:26 Antibiotics) Home Medications: Ambulatory Orders Lipase/Protease/Amylase [Madhavi Arzola 24,000 Units Capsule] 1 each PO DAILY Loratadine [Claritin] 10 mg PO PRN PRN 05/14/18 Naproxen [Naprosyn -] 250 mg PO BID 05/14/18 Oxybutynin Chloride 10 mg PO DAILY 05/14/18 Ranitidine HCl [Zantac] 150 mg PO DAILY 08/29/19 COPD: No HTN: Yes Other medical history: scoliosis - Surgical History Cholecystectomy: Yes (2002) - Immunization History Immunization Up to Date: Yes - Psycho Social/Smoking Cessation Hx Smoking History: Former smoker Have you smoked in the past 12 months: No If you are a former smoker, when did you quit?: 16 years ago Information on smoking cessation initiated: No Hx Alcohol Use: No Drug/Substance Use Hx: No Substance Use Type: None ROS: Constitutional: no fever, +chills HEENT: no throat pain, no dysphagia Cardiovascular: no chest pain, no palpitations Respiratory: no cough, no shortness of breath Gastrointestinal: no abdominal pain, no nausea Genitourinary: no dysuria, no hematuria Musculoskeletal: no myalgia, no arthralgia Skin: + itching, +wound Neurologic: no syncope no weakness Vital Signs Temp 98.8 F 08/29/19 08:02 Pulse 89 08/29/19 08:02 Resp 17 08/29/19 08:02 BP 120/70 08/29/19 08:02 Pulse Ox 98 08/29/19 01:30 Intake & Output 08/28/19 08/28/19 08/29/19 11:59 23:59 11:59 Weight 143 lb 135 lb 8 oz Other: Voiding Method Toilet Height 5 ft 4 in 5 ft 1 in Body Mass Index (BMI) 24.5 25.6 Weight Measurement Method Standing Scale CBC, BMP 08/29/19 05:47 08/29/19 05:47 PE: General: Awake, alert, and fully oriented, in no acute distress Head: No signs of trauma Eyes: sclera anicteric Lungs: unlabored resp on RA Abdomen: Soft, nontender. No guarding, no rebound, no masses, no rashes or lesions. Extremities: moving all extremities with out limitation LLE swollen with diffuse +2 pitting edema and erythema extending from ankle anteriorly to 2/3rd proximally of LE. Some excoriations and scabbing seen over estrada 2/2 scratching, no foul odor or active d/c. well healed scar over anterior of ankle/ distal 3rd of LE from previous debridement. RLE; with +1 pitting edema scabbed excoriations on anterior lower leg and medial aspect, no discharge, overlying area is warm indurated and tender with some mild erythema, B/L +2 DP pulses and +1 TP pulses. SKIN: Warm, Dry, normal turgor Neurologic: Cranial nerves II through XII grossly intact. Normal speech US as read by radiology: "COMPARISON: None. FINDINGS: There is no DVT in the left lower extremity. IMPRESSION: No DVT. THIS DOCUMENT HAS BEEN ELECTRONICALLY SIGNED Tani Durham MD 08/29/2019 00:25 EST" Problem List - Problems (1) Cellulitis Assessment/Plan: Patient with Venous stasis and Left LE cellulitis with mild excoriations and palpable pulses with no indication for vascular intervention. Bacitracin to left LE open skin Continue antibiotics per ID/medical team Elevate the lower extremity above the level of the heart at all times while at rest Bilateral compression with meera wraps once cellulitis has receded (wrap from metacarpal heads to below knee) Domeboro soaks QD (astringent for pruritus) Apply Lac hydrin daily (for dry scaly skin) Evaluation and plan discussed with Dr Schrader. Code(s): L03.90 - CELLULITIS, UNSPECIFIED Qualifiers: Site of cellulitis: extremity Site of cellulitis of extremity: lower extremity Laterality: left Qualified Code(s): L03.116 - Cellulitis of left lower limb
[2019-08-29] MEDS: BACITRACIN 15 GM TUBE TOPICAL OINTMENT TP SCH (14:25)
--- NOTE | 2019-08-29 14:51 | PN ---
Progress Note (short form) - Note Progress Note: ID consult dictated imp/reccd cellulitis LLE history MRSA sulfa allergy anemia continue vancomycin MRSA isolation GI f/u ongoing blood transfusion Problem List - Problems (1) Cellulitis Code(s): L03.90 - CELLULITIS, UNSPECIFIED Qualifiers: Site of cellulitis: extremity Site of cellulitis of extremity: lower extremity Laterality: left Qualified Code(s): L03.116 - Cellulitis of left lower limb (2) MRSA (methicillin resistant Staphylococcus aureus) colonization Code(s): Z22.322 - CARRIER OR SUSPECTED CARRIER OF METHICILLIN RESIS STAPH (3) Anemia Code(s): D64.9 - ANEMIA, UNSPECIFIED Qualifiers: Anemia type: unspecified type Qualified Code(s): D64.9 - Anemia, unspecified
--- NOTE | 2019-08-29 15:56 | PN ---
Physical Exam: SUBJECTIVE: Patient seen and examined. Patient states that her leg swelling and pain started after shs scratched her leg. Denies current chest pain, SOB, abd pain, fever, chills. Patient speech is very fast and tangential. OBJECTIVE: Vital Signs Period Temp Pulse Resp BP Sys/Pittman Pulse Ox Last 24 Hr 97.8 F-100 F 89-109 17-18 114-157/70-82 98-98 GENERAL: Awake, alert, and fully oriented, in no acute distress. HEAD: Normal with no signs of trauma. EYES: EOMI, no scleral icterus, no ptosis EARS, NOSE, THROAT: Moist mucous membranes. NECK: supple, trachea midline LUNGS: Breath sounds equal, clear to auscultation bilaterally. No wheezes, and no crackles. No accessory muscle use. HEART: RRR, s1 s2 normal ABDOMEN: Soft, nontender, not distended, normoactive bowel sounds, no guarding, no rebound, no masses MUSCULOSKELETAL: No bony deformities or tenderness. EXTREMITIES: L calf edema and erythema, hot, excoriation on anterior tibia. R LE also edematous and erythematous, no excoriations NEUROLOGICAL: Normal speech. gait not observed. sensation intact throughout SKIN: Warm, dry, normal turgor Laboratory Results - last 24 hr 08/28/19 08/28/19 08/28/19 21:41 21:41 21:41 WBC 7.6 RBC 3.59 L Hgb 7.7 L Hct 24.8 L MCV 69.0 L MCH 21.6 L MCHC 31.2 L RDW 16.2 H Plt Count 447 H MPV 7.6 Absolute Neuts (auto) 4.3 Neutrophils % 56.4 Lymphocytes % 28.2 Monocytes % 12.7 H Eosinophils % 1.7 Basophils % 1.0 Nucleated RBC % 0 Hypochromia 2+ Anisocytosis 1+ Macrocytosis 1+ PT with INR 12.30 INR 1.04 Sodium 139 Potassium 3.8 Chloride 104 Carbon Dioxide 30 Anion Gap 5 L BUN 14.2 Creatinine 0.9 Est GFR (CKD-EPI)AfAm 81.11 Est GFR (CKD-EPI)NonAf 69.99 Random Glucose 93 Calcium 9.8 Phosphorus Magnesium Iron TIBC Iron Saturation Unsaturated IBC Ferritin Total Bilirubin 0.2 AST 16 ALT 21 Alkaline Phosphatase 111 Total Protein 6.7 Albumin 3.5 TSH 0.82 Stool Occult Blood Blood Type Antibody Screen Crossmatch 08/29/19 08/29/19 08/29/19 01:20 05:47 05:47 WBC 6.4 RBC 3.11 L Hgb 6.7 L* Hct 21.2 L MCV 68.3 L MCH 21.6 L MCHC 31.6 L RDW 16.0 H Plt Count 357 D MPV 7.8 Absolute Neuts (auto) 3.3 Neutrophils % 51.6 Lymphocytes % 31.9 Monocytes % 13.4 H Eosinophils % 2.1 Basophils % 1.0 Nucleated RBC % 0 Hypochromia Anisocytosis Macrocytosis PT with INR INR Sodium 141 Potassium 3.3 L Chloride 106 Carbon Dioxide 28 Anion Gap 7 L BUN 13.0 Creatinine 1.0 Est GFR (CKD-EPI)AfAm 71.41 Est GFR (CKD-EPI)NonAf 61.62 Random Glucose 119 H Calcium 9.0 Phosphorus 3.5 Magnesium 2.1 Iron 22 L TIBC 416 Iron Saturation 5 L Unsaturated IBC 394 H Ferritin 5.2 L Total Bilirubin 0.4 AST 15 ALT 17 Alkaline Phosphatase 93 Total Protein 5.6 L Albumin 2.9 L TSH Stool Occult Blood Negative Blood Type Antibody Screen Crossmatch 08/29/19 08:23 WBC RBC Hgb Hct MCV MCH MCHC RDW Plt Count MPV Absolute Neuts (auto) Neutrophils % Lymphocytes % Monocytes % Eosinophils % Basophils % Nucleated RBC % Hypochromia Anisocytosis Macrocytosis PT with INR INR Sodium Potassium Chloride Carbon Dioxide Anion Gap BUN Creatinine Est GFR (CKD-EPI)AfAm Est GFR (CKD-EPI)NonAf Random Glucose Calcium Phosphorus Magnesium Iron TIBC Iron Saturation Unsaturated IBC Ferritin Total Bilirubin AST ALT Alkaline Phosphatase Total Protein Albumin TSH Stool Occult Blood Blood Type A NEGATIVE Antibody Screen Negative Crossmatch See Detail Active Medications Generic Name Dose Route Start Last Admin Trade Name Freq PRN Reason Stop Dose Admin Bacitracin 1 applic 08/29/19 10:45 08/29/19 14:25 Bacitracin - TP 1 applic DAILY ANA LAURA Administration Pantoprazole Sodium 40 mg 08/29/19 10:00 08/29/19 09:44 Protonix Iv IVPUSH 40 mg DAILY ANA LAURA Administration Vancomycin HCl 1,000 mg 08/30/19 02:00 Vancomycin (Pre-Docked) IVPB Q24H ANA LAURA Protocol ASSESSMENT/PLAN: 58 y/o/f with PMHx of HTN, chronic venous insufficiency, GERD, dysphagia, recurrent cellulitis presents to ED for erythema, swelling and pain of L LE. Admitted for b/l cellulitis of LE. Cellulitis - likely 2/2 chronic venous insufficiency - doppler negative for DVT - c/w empiric vanc , pt had MRSA from a different wound in 2018 - pending blood cultures - Wound care consulted, recs appreciated - Bacitracin to left LE open skin - Elevate the lower extremity above the level of the heart at all times while at rest - Bilateral compression with meera wraps once cellulitis has receded (wrap from metacarpal heads to below knee) - Domeboro soaks QD (astringent for pruritus) - Apply Lac hydrin daily (for dry scaly skin) Microcytic Anemia , acute vs chronic - Iron studies showing iron deficiency anemia - Hgb drop to 6.7 on repeat labs, transfuse patient 2 units PRBCs and check CBC - Stool occult test negative - GI consulted recs appreciated - Transfuse for Hgb >8 for EGD #HTN - normotensive, continue to monitor #Dysphagia - TSH 0.82 - Speech/Swallow recommending chopped diet, moist soft food, easy to chew - patient will have inpatient EGD to dilate esophageal strictures. Known to Dr. Shannon #FEN - monitor and replete lytes as needed - siet as above #DVTPPX - Lovenox #Dispostion - Patient to go for EGD as per GI - Will need outpatient GI follow up Visit type - Emergency Visit Emergency Visit: Yes ED Registration Date: 08/29/19 Care time: The patient presented to the Emergency Department on the above date and was hospitalized for further evaluation of their emergent condition. - New Patient This patient is new to me today: No - Critical Care Critical Care patient: No ATTENDING PHYSICIAN STATEMENT I saw and evaluated the patient. I reviewed the resident's note and discussed the case with the resident. I agree with the resident's findings and plan as documented. SUBJECTIVE: OBJECTIVE: ASSESSMENT AND PLAN:
[2019-08-29] MEDS ORDERED: ACETAMINOPHEN 325 MG TABLET (FP) PO PRN (17:56)
--- NOTE | 2019-08-29 18:59 | PN ---
Teaching Attending Note Name of Resident: Reid Lee ATTENDING PHYSICIAN STATEMENT I saw and evaluated the patient. I reviewed the resident's note and discussed the case with the resident. I agree with the resident's findings and plan as documented with exceptions below . SUBJECTIVE: Patient seen and examined. Left leg swelling/pain. Subjective fevers at home. long standing dysphagia, is on soft diet, tolerating well. No dark or bloody stools noted. OBJECTIVE: Vital Signs Period Temp Pulse Resp BP Sys/Pittman Pulse Ox Last 24 Hr 97.8 F-100 F 89-109 17-18 114-157/70-82 98-98 Intake & Output 08/26/19 08/27/19 08/28/19 08/29/19 23:59 23:59 23:59 23:59 Weight 143 lb 135 lb 8 oz General: sitting in bed, no acute distress Chest: CTAb, no rales or wheezing Abdomen:Soft, NT, ND Extremities: LLE swelling/erythema/warmth/tenderness till mid leg, scratch espinoza with scabs on left estrada, scar lower 1/3rd left leg from prior debridement , pos pulses, good capillary refill Home Medications Medication Instructions Recorded Lipase/Protease/Amylase [Creon Dr 1 each PO DAILY 05/14/18 24,000 Units Capsule] Loratadine [Claritin] 10 mg PO PRN PRN 05/14/18 Naproxen [Naprosyn -] 250 mg PO BID 05/14/18 Oxybutynin Chloride 10 mg PO DAILY 05/14/18 Ranitidine HCl [Zantac] 150 mg PO DAILY 08/29/19 Active Medications Acetaminophen (Tylenol -) 650 mg PO Q6H PRN PRN Reason: FEVER Last Admin: 08/29/19 18:07 Dose: 650 mg Bacitracin (Bacitracin -) 1 applic TP DAILY ANA LAURA Last Admin: 08/29/19 14:25 Dose: 1 applic Pantoprazole Sodium (Protonix Iv) 40 mg IVPUSH DAILY ANA LAURA Last Admin: 08/29/19 09:44 Dose: 40 mg Vancomycin HCl (Vancomycin (Pre-Docked)) 1,000 mg IVPB Q24H ANA LAURA; Protocol Laboratory Results - last 24 hr 08/28/19 08/28/19 08/28/19 21:41 21:41 21:41 WBC 7.6 RBC 3.59 L Hgb 7.7 L Hct 24.8 L MCV 69.0 L MCH 21.6 L MCHC 31.2 L RDW 16.2 H Plt Count 447 H MPV 7.6 Absolute Neuts (auto) 4.3 Neutrophils % 56.4 Lymphocytes % 28.2 Monocytes % 12.7 H Eosinophils % 1.7 Basophils % 1.0 Nucleated RBC % 0 Hypochromia 2+ Anisocytosis 1+ Macrocytosis 1+ PT with INR 12.30 INR 1.04 Sodium 139 Potassium 3.8 Chloride 104 Carbon Dioxide 30 Anion Gap 5 L BUN 14.2 Creatinine 0.9 Est GFR (CKD-EPI)AfAm 81.11 Est GFR (CKD-EPI)NonAf 69.99 Random Glucose 93 Calcium 9.8 Phosphorus Magnesium Iron TIBC Iron Saturation Unsaturated IBC Ferritin Total Bilirubin 0.2 AST 16 ALT 21 Alkaline Phosphatase 111 Total Protein 6.7 Albumin 3.5 TSH 0.82 Stool Occult Blood Blood Type Antibody Screen Crossmatch 08/29/19 08/29/19 08/29/19 01:20 05:47 05:47 WBC 6.4 RBC 3.11 L Hgb 6.7 L* Hct 21.2 L MCV 68.3 L MCH 21.6 L MCHC 31.6 L RDW 16.0 H Plt Count 357 D MPV 7.8 Absolute Neuts (auto) 3.3 Neutrophils % 51.6 Lymphocytes % 31.9 Monocytes % 13.4 H Eosinophils % 2.1 Basophils % 1.0 Nucleated RBC % 0 Hypochromia Anisocytosis Macrocytosis PT with INR INR Sodium 141 Potassium 3.3 L Chloride 106 Carbon Dioxide 28 Anion Gap 7 L BUN 13.0 Creatinine 1.0 Est GFR (CKD-EPI)AfAm 71.41 Est GFR (CKD-EPI)NonAf 61.62 Random Glucose 119 H Calcium 9.0 Phosphorus 3.5 Magnesium 2.1 Iron 22 L TIBC 416 Iron Saturation 5 L Unsaturated IBC 394 H Ferritin 5.2 L Total Bilirubin 0.4 AST 15 ALT 17 Alkaline Phosphatase 93 Total Protein 5.6 L Albumin 2.9 L TSH Stool Occult Blood Negative Blood Type Antibody Screen Crossmatch 08/29/19 08:23 WBC RBC Hgb Hct MCV MCH MCHC RDW Plt Count MPV Absolute Neuts (auto) Neutrophils % Lymphocytes % Monocytes % Eosinophils % Basophils % Nucleated RBC % Hypochromia Anisocytosis Macrocytosis PT with INR INR Sodium Potassium Chloride Carbon Dioxide Anion Gap BUN Creatinine Est GFR (CKD-EPI)AfAm Est GFR (CKD-EPI)NonAf Random Glucose Calcium Phosphorus Magnesium Iron TIBC Iron Saturation Unsaturated IBC Ferritin Total Bilirubin AST ALT Alkaline Phosphatase Total Protein Albumin TSH Stool Occult Blood Blood Type A NEGATIVE Antibody Screen Negative Crossmatch See Detail ASSESSMENT AND PLAN: 58 yof with PMHx of HTN, chronic venous insufficiency, GERD, recurrent cellulitis(h/o MRsA) s/p debridement, long standing dysphagia with known esophageal stricture/Hiatal hernia, follows Dr. hernandez, admitted with LLE cellulitis. -LLE cellulitis -Acute on chronic iron deficiency anemia -Esophageal strictures with dysphagia to solids -Hiatal hernia -Chronic venous insufficiency -HTN -GERD Plan; Blood cx, IV vancomycin. ID input noted. Leg elevation. Transfuse 2 units PRBC, no gross evidence of bleed. GI input noted. Per discussion with Dr. hernandez, patient needs EGD for eso stricture dilation at a tertiary care at [facility]. Currently tolerating soft diet well, Speech/swallow input noted. Continue PPI, avoid NSAIDs DVTPPX SCDs dispo in 48-72 hours on PO abx if cellulitis improved, h/h stable and no new concerns. PT eval prior to dc Plan discussed with patient in detail, all questions answered.
[2019-08-29 21:25] LABS: HEMATOCRIT 27.1 % (32.4-45.2); HEMOGLOBIN 8.3 GM/dL (10.7-15.3); MCH 21.7 pg (25.7-33.7); MCHC 30.7 g/dl (32.0-36.0); MEAN CELL VOLUME 70.9 fl (80-96); MEAN PLT VOLUME 7.8 fl (7.5-11.1); PLATELET COUNT 404 K/MM3 (134-434); RBC 3.82 M/mm3 (3.60-5.2); WHITE BLOOD COUNT 7.2 K/mm3 (4.0-10.0)
[2019-08-30] MEDS ORDERED: VANCOMYCIN 1 GM in D5W (PRE-DOCKED) 1,000 MG/250 ML IVPB SCH (02:00)
--- NOTE | 2019-08-30 07:33 | PN ---
Progress Note (short form) - Note Progress Note: s/p transfusion still some pain and erythema of the leg Vital Signs Period Temp Pulse Resp BP Sys/Pittman Pulse Ox Last 24 Hr 97.8 F-99.8 F 87-98 17-20 110-128/69-76 98 cor-rrr lungs clear abd soft,nt ext +erythema and tenderness LLE CBC, BMP 08/29/19 21:00 08/29/19 05:47 Microbiology 08/29/19 01:45 Blood - Peripheral Venous Blood Culture - Preliminary NO GROWTH OBTAINED AFTER 24 HOURS, INCUBATION TO CONTINUE FOR 4 DAYS. 08/29/19 01:45 Blood - Peripheral Venous Blood Culture - Preliminary NO GROWTH OBTAINED AFTER 24 HOURS, INCUBATION TO CONTINUE FOR 4 DAYS. a/p cellulitis LLE history MRSA sulfa allergy anemia continue vancomycin-plan switch to po clindamycin in next 24 to 48 hours- still quite red and tender, would continue iv antibiotics today MRSA isolation Problem List - Problems (1) Cellulitis Code(s): L03.90 - CELLULITIS, UNSPECIFIED Qualifiers: Site of cellulitis: extremity Site of cellulitis of extremity: lower extremity Laterality: left Qualified Code(s): L03.116 - Cellulitis of left lower limb (2) MRSA (methicillin resistant Staphylococcus aureus) colonization Code(s): Z22.322 - CARRIER OR SUSPECTED CARRIER OF METHICILLIN RESIS STAPH (3) Anemia Code(s): D64.9 - ANEMIA, UNSPECIFIED Qualifiers: Anemia type: unspecified type Qualified Code(s): D64.9 - Anemia, unspecified
[2019-08-30] MEDS: VANCOMYCIN 1 GRAM (PRE-DOCKED) 1,000 MG/250 ML BAG IVPB SCH ×2 (07:47→18:49)
[2019-08-30 08:25] LABS: HEMATOCRIT 27.3 % (32.4-45.2); HEMOGLOBIN 8.7 GM/dL (10.7-15.3); MCH 22.9 pg (25.7-33.7); MCHC 31.9 g/dl (32.0-36.0); MEAN CELL VOLUME 71.8 fl (80-96); MEAN PLT VOLUME 7.6 fl (7.5-11.1); PLATELET COUNT 328 K/MM3 (134-434); RBC 3.81 M/mm3 (3.60-5.2); RDW 18.8 % (11.6-15.6); WHITE BLOOD COUNT 5.4 K/mm3 (4.0-10.0)
[2019-08-30 09:12] LABS: BLOOD UREA NITROGEN 11.7 mg/dL (7-18); CALCIUM 9.4 mg/dL (8.5-10.1); CREATININE 0.8 mg/dL (0.55-1.3); POTASSIUM 4.1 mmol/L (3.5-5.1)
[2019-08-30] MEDS: BACITRACIN 15 GM TUBE TOPICAL OINTMENT TP SCH (09:44)
[2019-08-30] MEDS: PANTOPRAZOLE SODIUM 40 MG VIAL IVPUSH SCH (09:45)
[2019-08-30] MEDS: AMPICILLIN NA/SULBACTAM NA 1.5 GM in SODIUM CHLORIDE 100 ML IVPB SCH ×3 (09:53→21:49)
--- NOTE | 2019-08-30 10:15 | PN ---
Physical Exam: SUBJECTIVE: Patient seen and examined. No acute events overnight. Denies chest pain, SOB, fever, chills. Patient feels like her legs are getting better. She has been scratching at her legs. OBJECTIVE: Vital Signs Period Temp Pulse Resp BP Sys/Pittman Pulse Ox Last 24 Hr 97.8 F-99.8 F 87-98 17-20 110-128/69-76 98 GENERAL: Awake, alert, and fully oriented, in no acute distress. HEAD: Normal with no signs of trauma. EYES: EOMI, no scleral icterus, no ptosis EARS, NOSE, THROAT: Moist mucous membranes. NECK: supple, trachea midline LUNGS: Breath sounds equal, clear to auscultation bilaterally. No wheezes, and no crackles. No accessory muscle use. HEART: RRR, s1 s2 normal ABDOMEN: Soft, nontender, not distended, normoactive bowel sounds, no guarding, no rebound, no masses MUSCULOSKELETAL: No bony deformities or tenderness. EXTREMITIES: L calf with edema and erythema, warmth L>R, excoriation on anterior tibia. R LE also edematous and erythematous, scratch espinoza noted on calf NEUROLOGICAL: Pressured, fast speech. gait not observed. sensation intact throughout SKIN: Warm, dry, normal turgor Laboratory Results - last 24 hr 08/29/19 08/29/19 08/30/19 08:23 21:00 07:50 WBC 7.2 5.4 RBC 3.82 3.81 Hgb 8.3 L 8.7 L Hct 27.1 L D 27.3 L MCV 70.9 L 71.8 L MCH 21.7 L 22.9 L MCHC 30.7 L 31.9 L RDW 17.0 H 18.8 H Plt Count 404 328 MPV 7.8 7.6 Sodium Potassium Chloride Carbon Dioxide Anion Gap BUN Creatinine Est GFR (CKD-EPI)AfAm Est GFR (CKD-EPI)NonAf Random Glucose Calcium Blood Type A NEGATIVE Antibody Screen Negative Crossmatch See Detail 08/30/19 07:50 WBC RBC Hgb Hct MCV MCH MCHC RDW Plt Count MPV Sodium 142 Potassium 4.1 Chloride 109 H Carbon Dioxide 27 Anion Gap 5 L BUN 11.7 Creatinine 0.8 Est GFR (CKD-EPI)AfAm 93.53 Est GFR (CKD-EPI)NonAf 80.70 Random Glucose 100 Calcium 9.4 Blood Type Antibody Screen Crossmatch Active Medications Generic Name Dose Route Start Last Admin Trade Name Beni PRN Reason Stop Dose Admin Acetaminophen 650 mg 08/29/19 17:56 08/29/19 18:07 Tylenol - PO 650 mg Q6H PRN Administration FEVER Bacitracin 1 applic 08/29/19 10:45 08/30/19 09:44 Bacitracin - TP 1 applic DAILY ANA LAURA Administration Vancomycin HCl 1,000 mg in 250 mls @ 166.667 mls/hr 08/30/19 07:30 08/30/19 07:47 Vancomycin (Pre-Docked) IVPB 166.667 mls/hr Q12H ANA LAURA Administration Protocol Ampicillin Sodium/Sulbactam 100 mls @ 200 mls/hr 08/30/19 09:00 08/30/19 09: 53 Sodium 1.5 gm/ Sodium Chloride IVPB 200 mls/hr Q6H-IV ANA LAURA Administration Pantoprazole Sodium 40 mg 08/29/19 10:00 08/30/19 09:45 Protonix Iv IVPUSH 40 mg DAILY ANA LAURA Administration ASSESSMENT/PLAN: 58 y/o/f with PMHx of HTN, chronic venous insufficiency, GERD, dysphagia, recurrent cellulitis presents to ED for erythema, swelling and pain of L LE. Admitted for b/l cellulitis of LE. Cellulitis - likely 2/2 chronic venous insufficiency - doppler negative for DVT - c/w empiric vanc , pt had MRSA from a different wound in 2018 (Vanco started on 08/29) - Stated on unysyn 1.5 Q6hr (started on 08/30) - Blood cultures negative to date - Wound care consulted, recs appreciated - Bacitracin to left LE open skin - Elevate the lower extremity above the level of the heart at all times while at rest - Bilateral compression with meera wraps once cellulitis has receded (wrap from metacarpal heads to below knee) - Domeboro soaks QD (astringent for pruritus) - Apply Lac hydrin daily (for dry scaly skin) Microcytic Anemia , acute vs chronic - Iron studies showing iron deficiency anemia - Transfused 2 units PRBC. Hgb now at 8.7. Continue to monitor, transfuse as needed. - Stool occult test negative - GI consulted recs appreciated - Transfuse for Hgb >8 for EGD #HTN - normotensive, continue to monitor #Dysphagia - TSH 0.82 - Speech/Swallow recommending chopped diet, moist soft food, easy to chew - patient will have inpatient EGD to dilate esophageal strictures. Known to Dr. Shannon #FEN - monitor and replete lytes as needed - diet as above #DVTPPX - Lovenox #Dispostion - Patient to go for EGD as per GI - Will need outpatient GI follow up Visit type - Emergency Visit Emergency Visit: Yes ED Registration Date: 08/29/19 Care time: The patient presented to the Emergency Department on the above date and was hospitalized for further evaluation of their emergent condition. - New Patient This patient is new to me today: No - Critical Care Critical Care patient: No ATTENDING PHYSICIAN STATEMENT I saw and evaluated the patient. I reviewed the resident's note and discussed the case with the resident. I agree with the resident's findings and plan as documented. SUBJECTIVE: OBJECTIVE: ASSESSMENT AND PLAN:
--- NOTE | 2019-08-30 11:25 | PN ---
Teaching Attending Note Name of Resident: Reid Lee ATTENDING PHYSICIAN STATEMENT I saw and evaluated the patient. I reviewed the resident's note and discussed the case with the resident. I agree with the resident's findings and plan as documented with exceptions below. SUBJECTIVE: Patient seen and examined. feels leg symptoms have improved. tolerating soft diet, no new concerns. Denies any dark or bloody stools. OBJECTIVE: Vital Signs Period Temp Pulse Resp BP Sys/Pittman Pulse Ox Last 24 Hr 97.8 F-99.8 F 87-98 17-20 110-128/69-76 98 Intake & Output 08/27/19 08/28/19 08/29/19 08/30/19 23:59 23:59 23:59 23:59 Intake Total 980 700 Balance 980 700 Weight 143 lb 135 lb 8 oz 139 lb 11.2 oz General: sitting in bed, no acute distress Chest: CTAB, no rales or wheezing Abdomen:Soft, NT Extremities: LLE edema/swelling overall unchanged, scabs, RLE with more edema and erythema, fresh scratch espinoza (patient denies) Home Medications Medication Instructions Recorded Lipase/Protease/Amylase [Creon Dr 1 each PO DAILY 05/14/18 24,000 Units Capsule] Loratadine [Claritin] 10 mg PO PRN PRN 05/14/18 Naproxen [Naprosyn -] 250 mg PO BID 05/14/18 Oxybutynin Chloride 10 mg PO DAILY 05/14/18 Ranitidine HCl [Zantac] 150 mg PO DAILY 08/29/19 Active Medications Acetaminophen (Tylenol -) 650 mg PO Q6H PRN PRN Reason: FEVER Last Admin: 08/29/19 18:07 Dose: 650 mg Bacitracin (Bacitracin -) 1 applic TP DAILY ANA LAURA Last Admin: 08/30/19 09:44 Dose: 1 applic Vancomycin HCl (Vancomycin (Pre-Docked)) 1,000 mg in 250 mls @ 166.667 mls/hr IVPB Q12H ANA LAURA; Protocol Last Admin: 08/30/19 07:47 Dose: 166.667 mls/hr Ampicillin Sodium/Sulbactam (Sodium 1.5 gm/ Sodium Chloride) 100 mls @ 200 mls/ hr IVPB Q6H-IV ANA LAURA Last Admin: 08/30/19 09:53 Dose: 200 mls/hr Pantoprazole Sodium (Protonix Iv) 40 mg IVPUSH DAILY ANA LAURA Last Admin: 08/30/19 09:45 Dose: 40 mg Laboratory Results - last 24 hr 08/29/19 08/29/19 08/30/19 08:23 21:00 07:50 WBC 7.2 5.4 RBC 3.82 3.81 Hgb 8.3 L 8.7 L Hct 27.1 L D 27.3 L MCV 70.9 L 71.8 L MCH 21.7 L 22.9 L MCHC 30.7 L 31.9 L RDW 17.0 H 18.8 H Plt Count 404 328 MPV 7.8 7.6 Sodium Potassium Chloride Carbon Dioxide Anion Gap BUN Creatinine Est GFR (CKD-EPI)AfAm Est GFR (CKD-EPI)NonAf Random Glucose Calcium Blood Type A NEGATIVE Antibody Screen Negative Crossmatch See Detail 08/30/19 07:50 WBC RBC Hgb Hct MCV MCH MCHC RDW Plt Count MPV Sodium 142 Potassium 4.1 Chloride 109 H Carbon Dioxide 27 Anion Gap 5 L BUN 11.7 Creatinine 0.8 Est GFR (CKD-EPI)AfAm 93.53 Est GFR (CKD-EPI)NonAf 80.70 Random Glucose 100 Calcium 9.4 Blood Type Antibody Screen Crossmatch Microbiology 08/29/19 09:50 Nares - Mrsa Screen - Right MRSA Screen - Final NO MRSA ISOLATED 08/29/19 04:46 Nares - Mrsa Screen - Left MRSA Screen - Final NO MRSA ISOLATED 08/29/19 01:45 Blood - Peripheral Venous Blood Culture - Preliminary NO GROWTH OBTAINED AFTER 24 HOURS, INCUBATION TO CONTINUE FOR 4 DAYS. 08/29/19 01:45 Blood - Peripheral Venous Blood Culture - Preliminary NO GROWTH OBTAINED AFTER 24 HOURS, INCUBATION TO CONTINUE FOR 4 DAYS. ASSESSMENT AND PLAN: 58 yof with PMHx of HTN, chronic venous insufficiency, GERD, recurrent cellulitis(h/o MRSA) s/p debridement, long standing dysphagia with known esophageal stricture/Hiatal hernia, follows Dr. hernandez, admitted with LLE cellulitis. -LLE cellulitis, now Bilateral LE cellulitis -Acute on chronic iron deficiency anemia -Esophageal strictures with dysphagia to solids -Hiatal hernia -Chronic venous insufficiency -HTN -GERD Plan; Worsening findings RLE. Concerned patient scratches the areas, though denies. Cats at home Discussed with ID Continue vancomycin. Add unasyn. Blood cx neg so far Aquaphor to LE. Leg elevation. s/p 2 units PRBC, appropriate response, monitor h/h FOBT neg, no gross evidence of bleed. GI input noted. Per discussion with Dr. hernandez, patient needs EGD for eso stricture dilation at a tertiary care at thoracic surgery on board. Currently tolerating soft diet well, Speech/swallow input noted. Continue PPI, avoid NSAIDs DVTPPX SCDs dispo dc plans on hold given ongoing concerns for progression of cellulitis. PT eval. Plan discussed with patient in detail, all questions answered.
[2019-08-30] MEDS: MINERAL OIL/PET HY-PHL TOPICAL OINTMENT 454 GM JAR TP SCH ×2 (14:57→21:49)
[2019-08-30] MEDS ORDERED: PT OWN MED DRAWER 7, Y5N ONE (20:39)
[2019-08-31] MEDS ORDERED: PT OWN MED DRAWER 7, Y5N ONE ×3 (02:36→14:40)
[2019-08-31] MEDS: AMPICILLIN NA/SULBACTAM NA 1.5 GM in SODIUM CHLORIDE 100 ML IVPB SCH ×4 (03:25→20:59)
[2019-08-31] MEDS: VANCOMYCIN 1 GRAM (PRE-DOCKED) 1,000 MG/250 ML BAG IVPB SCH ×2 (06:52→18:49)
[2019-08-31 07:09] LABS: HEMATOCRIT 26.7 % (32.4-45.2); HEMOGLOBIN 8.6 GM/dL (10.7-15.3); MCH 23.1 pg (25.7-33.7); MCHC 32.2 g/dl (32.0-36.0); MEAN CELL VOLUME 71.8 fl (80-96); MEAN PLT VOLUME 7.8 fl (7.5-11.1); PLATELET COUNT 314 K/MM3 (134-434); RBC 3.72 M/mm3 (3.60-5.2); RDW 18.9 % (11.6-15.6)
[2019-08-31 07:43] LABS: ALBUMIN 2.7 g/dl (3.4-5.0); BILIRUBIN,TOTAL 0.4 mg/dL (0.2-1); CALCIUM 8.9 mg/dL (8.5-10.1); CREATININE 0.8 mg/dL (0.55-1.3); POTASSIUM 3.8 mmol/L (3.5-5.1); TOT PROT 5.7 g/dl (6.4-8.2)
--- NOTE | 2019-08-31 09:02 | PN ---
Progress Note, Physician History of Present Illness: GI FOLLOW UP NOTE Patient examined and case discussed with Dr Shannon. Patient continues to have intermittent episodes of dysphagia with certain foods. Denies nausea, vomiting, abdominal pain, diarrhea, blood in stool, or melena. Complains of constipation x 2 days. Labs show stable Hg at 8.6. - Current Medication List Current Medications: Active Medications Acetaminophen (Tylenol -) 650 mg PO Q6H PRN PRN Reason: FEVER Last Admin: 08/29/19 18:07 Dose: 650 mg Bacitracin (Bacitracin -) 1 applic TP DAILY ANA LAURA Last Admin: 08/30/19 09:44 Dose: 1 applic Emollient Ointment (Aquaphor -) 1 applic TP BID ANA LAURA Last Admin: 08/30/19 21:49 Dose: 1 applic Vancomycin HCl (Vancomycin (Pre-Docked)) 1,000 mg in 250 mls @ 166.667 mls/hr IVPB Q12H ANA LAURA; Protocol Last Admin: 08/31/19 06:52 Dose: 166.667 mls/hr Ampicillin Sodium/Sulbactam (Sodium 1.5 gm/ Sodium Chloride) 100 mls @ 200 mls/ hr IVPB Q6H-IV ANA LAURA Pantoprazole Sodium (Protonix Iv) 40 mg IVPUSH DAILY ANA LAURA Last Admin: 08/30/19 09:45 Dose: 40 mg - Objective Vital Signs: Vital Signs Temperature 97.9 F 08/31/19 06:00 Pulse Rate 84 08/31/19 06:00 Respiratory Rate 20 08/31/19 06:00 Blood Pressure 116/64 08/31/19 06:00 O2 Sat by Pulse Oximetry (%) 98 08/30/19 09:00 Constitutional: Yes: No Distress, Calm Eyes: Yes: Conjunctiva Clear HENT: Yes: Atraumatic Cardiovascular: Yes: Regular Rate and Rhythm Respiratory: Yes: Regular, CTA Bilaterally Gastrointestinal: Yes: Normal Bowel Sounds, Soft Neurological: Yes: Alert, Oriented Psychiatric: Yes: Alert, Oriented Labs: CBC, BMP 08/31/19 06:25 08/31/19 06:25 INR, PTT INR 1.04 (0.83-1.09) 08/28/19 21:41 <Bebe Raymundo - Last Filed: 08/31/19 08:57> - Current Medication List Current Medications: Active Medications Acetaminophen (Tylenol -) 650 mg PO Q6H PRN PRN Reason: FEVER Last Admin: 08/29/19 18:07 Dose: 650 mg Bacitracin (Bacitracin -) 1 applic TP DAILY ANA LAURA Last Admin: 08/31/19 10:23 Dose: 1 applic Emollient Ointment (Aquaphor -) 1 applic TP BID ANA LAURA Last Admin: 08/31/19 10:23 Dose: 1 applic Hydrocortisone (Hytone 0.5% Cream -) 1 applic TP DAILY ANA LAURA Last Admin: 08/31/19 14:44 Dose: 1 applic Vancomycin HCl (Vancomycin (Pre-Docked)) 1,000 mg in 250 mls @ 166.667 mls/hr IVPB Q12H ANA LAURA; Protocol Last Admin: 08/31/19 06:52 Dose: 166.667 mls/hr Ampicillin Sodium/Sulbactam (Sodium 1.5 gm/ Sodium Chloride) 100 mls @ 200 mls/ hr IVPB Q6H-IV ANA LAURA Last Admin: 08/31/19 14:44 Dose: 200 mls/hr Pantoprazole Sodium (Protonix Iv) 40 mg IVPUSH DAILY [facility] Last Admin: 08/31/19 10:21 Dose: 40 mg - Objective Vital Signs: Vital Signs Temperature 98.1 F 08/31/19 17:35 Pulse Rate 82 08/31/19 17:35 Respiratory Rate 20 08/31/19 17:35 Blood Pressure 125/78 08/31/19 17:35 O2 Sat by Pulse Oximetry (%) 98 08/30/19 09:00 Labs: CBC, BMP 08/31/19 06:25 08/31/19 06:25 INR, PTT INR 1.04 (0.83-1.09) 08/28/19 21:41 <Giles Shannon - Last Filed: 08/31/19 18:00> Problem List - Problems (1) Dysphagia Assessment/Plan: >discussed patient with Dr Shannon Patient will have EGD tomorrow for dilatation of esophageal strictures NPO after midnight Clear liquid diet Code(s): R13.10 - DYSPHAGIA, UNSPECIFIED <Bebe Raymundo - Last Filed: 08/31/19 08:57> - Problems (1) Anemia Code(s): D64.9 - ANEMIA, UNSPECIFIED Qualifiers: Anemia type: unspecified type Qualified Code(s): D64.9 - Anemia, unspecified <Giles Shannon - Last Filed: 08/31/19 18:00>
[2019-08-31] MEDS: PANTOPRAZOLE SODIUM 40 MG VIAL IVPUSH SCH (10:21)
[2019-08-31] MEDS: BACITRACIN 15 GM TUBE TOPICAL OINTMENT TP SCH (10:23)
[2019-08-31] MEDS: MINERAL OIL/PET HY-PHL TOPICAL OINTMENT 454 GM JAR TP SCH ×2 (10:23→21:00)
--- NOTE | 2019-08-31 12:32 | PN ---
Physical Exam: SUBJECTIVE: Patient seen and examined. Patient able to walk without pain now. States she has been restraining from scratching her legs. Denies chest pain, abd pain, fever, chills. OBJECTIVE: Vital Signs Period Temp Pulse Resp BP Sys/Pittman Pulse Ox Last 24 Hr 97.6 F-98.1 F 84-92 18-20 116-142/54-85 GENERAL: Awake, alert, and fully oriented, in no acute distress. HEAD: Normal with no signs of trauma. EYES: EOMI, no scleral icterus, no ptosis EARS, NOSE, THROAT: Moist mucous membranes. NECK: supple, trachea midline LUNGS: Breath sounds equal, clear to auscultation bilaterally. No wheezes, and no crackles. No accessory muscle use. HEART: RRR, s1 s2 normal ABDOMEN: Soft, nontender, not distended, normoactive bowel sounds, no guarding, no rebound, no masses MUSCULOSKELETAL: No bony deformities or tenderness. EXTREMITIES: L calf with edema and erythema, excoriation on anterior tibia. Warmth and redness decreased compared to prior. R LE also edematous and erythematous but improved from compared to prior, no new scratch espinoza noted on calf NEUROLOGICAL: Pressured, fast speech. gait not observed. sensation intact throughout SKIN: Warm, dry, normal turgor Laboratory Results - last 24 hr 08/31/19 08/31/19 06:25 06:25 WBC 6.0 RBC 3.72 Hgb 8.6 L Hct 26.7 L MCV 71.8 L MCH 23.1 L MCHC 32.2 RDW 18.9 H Plt Count 314 MPV 7.8 Sodium 144 Potassium 3.8 Chloride 110 H Carbon Dioxide 29 Anion Gap 5 L BUN 10.0 Creatinine 0.8 Est GFR (CKD-EPI)AfAm 93.53 Est GFR (CKD-EPI)NonAf 80.70 Random Glucose 96 Calcium 8.9 Total Bilirubin 0.4 AST 15 ALT 17 Alkaline Phosphatase 91 Total Protein 5.7 L Albumin 2.7 L Active Medications Generic Name Dose Route Start Last Admin Trade Name Freq PRN Reason Stop Dose Admin Acetaminophen 650 mg 08/29/19 17:56 08/29/19 18:07 Tylenol - PO 650 mg Q6H PRN Administration FEVER Bacitracin 1 applic 08/29/19 10:45 08/31/19 10:23 Bacitracin - TP 1 applic DAILY ANA LAURA Administration Emollient Ointment 1 applic 08/30/19 12:00 08/31/19 10:23 Aquaphor - TP 1 applic BID ANA LUARA Administration Vancomycin HCl 1,000 mg in 250 mls @ 166.667 mls/hr 08/30/19 07:30 08/31/19 06:52 Vancomycin (Pre-Docked) IVPB 166.667 mls/hr Q12H ANA LAURA Administration Protocol Ampicillin Sodium/Sulbactam 100 mls @ 200 mls/hr 08/31/19 08:35 08/31/19 09: 25 Sodium 1.5 gm/ Sodium Chloride IVPB 200 mls/hr Q6H-IV ANA LAURA Administration Pantoprazole Sodium 40 mg 08/29/19 10:00 08/31/19 10:21 Protonix Iv IVPUSH 40 mg DAILY ANA LAURA Administration ASSESSMENT/PLAN: 58 y/o/f with PMHx of HTN, chronic venous insufficiency, GERD, dysphagia, recurrent cellulitis presents to ED for erythema, swelling and pain of L LE. Admitted for b/l cellulitis of LE. Cellulitis - likely 2/2 chronic venous insufficiency - doppler negative for DVT - c/w empiric vanc, pt had MRSA from a different wound in 2018 (Vanco started on 08/29) - Continue unysyn 1.5 Q6hr (started on 08/30) - ID on board, further abx as per ID - Blood cultures negative to date - Wound care consulted, recs appreciated - Bacitracin to left LE open skin - Elevate the lower extremity above the level of the heart at all times while at rest - Bilateral compression with meera wraps once cellulitis has receded (wrap from metacarpal heads to below knee) - Domeboro soaks QD (astringent for pruritus) - Apply Lac hydrin daily (for dry scaly skin) Microcytic Anemia , acute vs chronic - Iron studies showing iron deficiency anemia - Transfused 2 units PRBC. Hgb now above 8. Continue to monitor, transfuse as needed. - Stool occult test negative - GI consulted recs appreciated - Transfuse for Hgb >8 for EGD #HTN - normotensive, continue to monitor #Dysphagia - TSH 0.82 - Speech/Swallow recommending chopped diet, moist soft food, easy to chew - patient will have inpatient EGD to dilate esophageal strictures. Known to Dr. Shannon #FEN - monitor and replete lytes as needed - NPO after midnight, clear liquids until then #DVTPPX - Lovenox #Dispostion - Patient to go for EGD tomorrow as per GI. NPO after midnight. Clear liquid diet until then. - Will need outpatient GI follow up Visit type - Emergency Visit Emergency Visit: Yes ED Registration Date: 08/29/19 Care time: The patient presented to the Emergency Department on the above date and was hospitalized for further evaluation of their emergent condition. - New Patient This patient is new to me today: No - Critical Care Critical Care patient: No ATTENDING PHYSICIAN STATEMENT I saw and evaluated the patient. I reviewed the resident's note and discussed the case with the resident. I agree with the resident's findings and plan as documented. SUBJECTIVE: OBJECTIVE: ASSESSMENT AND PLAN:
--- NOTE | 2019-08-31 12:34 | PN ---
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 Now on clears, pending EGD/dilatation tomorrow.
--- NOTE | 2019-08-31 14:14 | PN ---
Progress Note (short form) - Note Progress Note: s/p transfusion less leg pain but legs are itchy Vital Signs Period Temp Pulse Resp BP Sys/Pittman Pulse Ox Last 24 Hr 97.6 F-98.1 F 84-92 18-20 116-142/64-85 cor-rrr lungs clear abd soft,nt ext less erythema, less warmth CBC, BMP 08/31/19 06:25 08/31/19 06:25 Microbiology 08/29/19 01:45 Blood - Peripheral Venous Blood Culture - Preliminary NO GROWTH OBTAINED AFTER 48 HOURS, INCUBATION TO CONTINUE FOR 3 DAYS. 08/29/19 01:45 Blood - Peripheral Venous Blood Culture - Preliminary NO GROWTH OBTAINED AFTER 48 HOURS, INCUBATION TO CONTINUE FOR 3 DAYS. 08/29/19 09:50 Nares - Mrsa Screen - Right MRSA Screen - Final NO MRSA ISOLATED 08/29/19 04:46 Nares - Mrsa Screen - Left MRSA Screen - Final NO MRSA ISOLATED Current Medications Acetaminophen (Tylenol -) 650 mg PO Q6H PRN PRN Reason: FEVER Last Admin: 08/29/19 18:07 Dose: 650 mg Bacitracin (Bacitracin -) 1 applic TP DAILY ANA LAURA Last Admin: 08/31/19 10:23 Dose: 1 applic Emollient Ointment (Aquaphor -) 1 applic TP BID ANA LAURA Last Admin: 08/31/19 10:23 Dose: 1 applic Vancomycin HCl (Vancomycin (Pre-Docked)) 1,000 mg in 250 mls @ 166.667 mls/hr IVPB Q12H ANA LAURA; Protocol Last Admin: 08/31/19 06:52 Dose: 166.667 mls/hr Ampicillin Sodium/Sulbactam (Sodium 1.5 gm/ Sodium Chloride) 100 mls @ 200 mls/ hr IVPB Q6H-IV ANA LAURA Last Admin: 08/31/19 09:25 Dose: 200 mls/hr Pantoprazole Sodium (Protonix Iv) 40 mg IVPUSH DAILY ANA LAURA Last Admin: 08/31/19 10:21 Dose: 40 mg a/p cellulitis LLE history MRSA sulfa allergy anemia continue vancomycin and unasyn add steroid cream cellulitis improving patient states she is having endoscopy in am, would continue iv antibioitics until she is eating well, then we can switch to po antibiotics Problem List - Problems (1) Cellulitis Code(s): L03.90 - CELLULITIS, UNSPECIFIED Qualifiers: Site of cellulitis: extremity Site of cellulitis of extremity: lower extremity Laterality: left Qualified Code(s): L03.116 - Cellulitis of left lower limb (2) MRSA (methicillin resistant Staphylococcus aureus) colonization Code(s): Z22.322 - CARRIER OR SUSPECTED CARRIER OF METHICILLIN RESIS STAPH (3) Anemia Code(s): D64.9 - ANEMIA, UNSPECIFIED Qualifiers: Anemia type: unspecified type Qualified Code(s): D64.9 - Anemia, unspecified
--- NOTE | 2019-08-31 14:35 | PN ---
Teaching Attending Note Name of Resident: Reid Lee ATTENDING PHYSICIAN STATEMENT I saw and evaluated the patient. I reviewed the resident's note and discussed the case with the resident. I agree with the resident's findings and plan as documented with exceptions below. SUBJECTIVE: Patient seen and examined. leg itching, no new pain. no new complaints otherwise. OBJECTIVE: Vital Signs Period Temp Pulse Resp BP Sys/Pittman Pulse Ox Last 24 Hr 97.6 F-98.1 F 84-92 18-20 116-142/64-85 Intake & Output 08/28/19 08/29/19 08/30/19 08/31/19 23:59 23:59 23:59 23:59 Intake Total 980 1500 300 Balance 980 1500 300 Weight 143 lb 135 lb 8 oz 139 lb 11.2 oz 137 lb General: sitting in bed, no acute distress Chest: CTAB, no rales or wheezing Abdomen:Soft, NT, ND, pos bowel sounds Extremities: improved leg erythema/warmth Home Medications Medication Instructions Recorded Lipase/Protease/Amylase [Creon Dr 1 each PO DAILY 05/14/18 24,000 Units Capsule] Loratadine [Claritin] 10 mg PO PRN PRN 05/14/18 Naproxen [Naprosyn -] 250 mg PO BID 05/14/18 Oxybutynin Chloride 10 mg PO DAILY 05/14/18 Ranitidine HCl [Zantac] 150 mg PO DAILY 08/29/19 Active Medications Acetaminophen (Tylenol -) 650 mg PO Q6H PRN PRN Reason: FEVER Last Admin: 08/29/19 18:07 Dose: 650 mg Bacitracin (Bacitracin -) 1 applic TP DAILY [facility] Last Admin: 08/31/19 10:23 Dose: 1 applic Emollient Ointment (Aquaphor -) 1 applic TP BID ANA LAURA Last Admin: 08/31/19 10:23 Dose: 1 applic Hydrocortisone (Hytone 0.5% Cream -) 1 applic TP DAILY ANA LAURA Vancomycin HCl (Vancomycin (Pre-Docked)) 1,000 mg in 250 mls @ 166.667 mls/hr IVPB Q12H ANA LAURA; Protocol Last Admin: 08/31/19 06:52 Dose: 166.667 mls/hr Ampicillin Sodium/Sulbactam (Sodium 1.5 gm/ Sodium Chloride) 100 mls @ 200 mls/ hr IVPB Q6H-IV ANA LAURA Last Admin: 08/31/19 09:25 Dose: 200 mls/hr Pantoprazole Sodium (Protonix Iv) 40 mg IVPUSH DAILY ANA LAURA Last Admin: 08/31/19 10:21 Dose: 40 mg Laboratory Results - last 24 hr 08/31/19 08/31/19 06:25 06:25 WBC 6.0 RBC 3.72 Hgb 8.6 L Hct 26.7 L MCV 71.8 L MCH 23.1 L MCHC 32.2 RDW 18.9 H Plt Count 314 MPV 7.8 Sodium 144 Potassium 3.8 Chloride 110 H Carbon Dioxide 29 Anion Gap 5 L BUN 10.0 Creatinine 0.8 Est GFR (CKD-EPI)AfAm 93.53 Est GFR (CKD-EPI)NonAf 80.70 Random Glucose 96 Calcium 8.9 Total Bilirubin 0.4 AST 15 ALT 17 Alkaline Phosphatase 91 Total Protein 5.7 L Albumin 2.7 L Microbiology 08/29/19 01:45 Blood - Peripheral Venous Blood Culture - Preliminary NO GROWTH OBTAINED AFTER 48 HOURS, INCUBATION TO CONTINUE FOR 3 DAYS. 08/29/19 01:45 Blood - Peripheral Venous Blood Culture - Preliminary NO GROWTH OBTAINED AFTER 48 HOURS, INCUBATION TO CONTINUE FOR 3 DAYS. 08/29/19 09:50 Nares - Mrsa Screen - Right MRSA Screen - Final NO MRSA ISOLATED 08/29/19 04:46 Nares - Mrsa Screen - Left MRSA Screen - Final NO MRSA ISOLATED A58 yof with PMHx of HTN, chronic venous insufficiency, GERD, recurrent cellulitis(h/o MRSA) s/p debridement, long standing dysphagia with known esophageal stricture/Hiatal hernia, follows Dr. hernandez, admitted with LLE cellulitis. -LLE cellulitis, now Bilateral LE cellulitis -Acute on chronic iron deficiency anemia -Esophageal strictures with dysphagia to solids -Hiatal hernia -Chronic venous insufficiency -HTN -GERD Plan; Unasyn day 2/vancomycin day 3. Symptoms improved. Monitor vanco levels. ID input noted Steroid cream. leg elevation. Blood cx neg so far. GI input noted. For EGD/dilation tomorrow. s/p 2 units PRBC, appropriate response, monitor h/h FOBT neg, no gross evidence of bleed. Speech/swallow input noted. Continue PPI, avoid NSAIDs DVTPPX SCDs dispo after EGD in 48 hours on PO abx if continues to improve. PT eval. Plan discussed with patient in detail, all questions answered.
[2019-08-31] MEDS: HYDROCORTISONE 0.5% TOPICAL CREAM 30 GM TUBE TP SCH (14:44)
[2019-08-31] MEDS ORDERED: AMPICILLIN NA/SULBACTAM NA 1.5 GM VIAL ONE (20:34)
[2019-08-31] MEDS ORDERED: SODIUM CHLORIDE 100 ML IVPB ONE (20:35)
[2019-09-01] MEDS ORDERED: SODIUM CHLORIDE 100 ML IVPB ONE ×4 (03:22→21:03)
[2019-09-01] MEDS ORDERED: AMPICILLIN NA/SULBACTAM NA 1.5 GM VIAL ONE ×4 (03:22→21:03)
[2019-09-01] MEDS: AMPICILLIN NA/SULBACTAM NA 1.5 GM in SODIUM CHLORIDE 100 ML IVPB SCH ×4 (03:56→21:09)
[2019-09-01 08:25] LABS: BASO % 0.9 % (0-2.0); EOS % 4.1 % (0-4.5); HEMATOCRIT 29.5 % (32.4-45.2); HEMOGLOBIN 9.4 GM/dL (10.7-15.3); LYMPH % 25.3 % (8-40); MCH 22.9 pg (25.7-33.7); MCHC 31.9 g/dl (32.0-36.0); MEAN CELL VOLUME 71.8 fl (80-96); MEAN PLT VOLUME 7.7 fl (7.5-11.1); MONO % 11.1 % (3.8-10.2); NEUT % 58.6 % (42.8-82.8); PLATELET COUNT 356 K/MM3 (134-434); RBC 4.11 M/mm3 (3.60-5.2); RDW 19.4 % (11.6-15.6); WHITE BLOOD COUNT 5.9 K/mm3 (4.0-10.0)
[2019-09-01 08:31] LABS: INR 1.03 (0.83-1.09); PROTHROMBIN TIME (PATIENT) 12.1 SEC (9.7-13.0)
[2019-09-01 08:34] LABS: ACTIVATED PTT 30.1 SECONDS (25.2-36.5)
[2019-09-01 08:52] LABS: BLOOD UREA NITROGEN 7.9 mg/dL (7-18); CALCIUM 9.1 mg/dL (8.5-10.1); CREATININE 0.7 mg/dL (0.55-1.3); POTASSIUM 3.9 mmol/L (3.5-5.1)
--- NOTE | 2019-09-01 09:01 | PN ---
Progress Note, Physician History of Present Illness: GI FOLLOW UP NOTE Patient examined and case discussed with Dr Shannon. Patient is NPO for EGD with Dr Shannon today. Denies nausea, vomiting, abdominal pain, diarrhea, blood in stool, or melena. Labs show stable Hg at 9.4 - Current Medication List Current Medications: Active Medications Acetaminophen (Tylenol -) 650 mg PO Q6H PRN PRN Reason: FEVER Last Admin: 08/29/19 18:07 Dose: 650 mg Bacitracin (Bacitracin -) 1 applic TP DAILY ANA LAURA Last Admin: 08/31/19 10:23 Dose: 1 applic Emollient Ointment (Aquaphor -) 1 applic TP BID ANA LAURA Last Admin: 08/31/19 21:00 Dose: 1 applic Hydrocortisone (Hytone 0.5% Cream -) 1 applic TP DAILY ANA LAURA Last Admin: 08/31/19 14:44 Dose: 1 applic Vancomycin HCl (Vancomycin (Pre-Docked)) 1,000 mg in 250 mls @ 166.667 mls/hr IVPB Q12H ANA LAURA; Protocol Last Admin: 08/31/19 18:49 Dose: 166.667 mls/hr Ampicillin Sodium/Sulbactam (Sodium 1.5 gm/ Sodium Chloride) 100 mls @ 200 mls/ hr IVPB Q6H-IV ANA LAURA Last Admin: 09/01/19 03:56 Dose: 200 mls/hr Pantoprazole Sodium (Protonix Iv) 40 mg IVPUSH DAILY ANA LAURA Last Admin: 08/31/19 10:21 Dose: 40 mg - Objective Vital Signs: Vital Signs Temperature 98.2 F 09/01/19 06:15 Pulse Rate 83 09/01/19 06:15 Respiratory Rate 20 09/01/19 06:15 Blood Pressure 136/83 09/01/19 06:15 O2 Sat by Pulse Oximetry (%) 98 08/30/19 09:00 Constitutional: Yes: No Distress, Calm Eyes: Yes: Conjunctiva Clear HENT: Yes: Atraumatic Cardiovascular: Yes: Regular Rate and Rhythm Respiratory: Yes: Regular, CTA Bilaterally Gastrointestinal: Yes: Normal Bowel Sounds, Soft Neurological: Yes: Alert, Oriented Psychiatric: Yes: Alert, Oriented Labs: CBC, BMP 09/01/19 07:49 09/01/19 07:49 INR, PTT INR 1.03 (0.83-1.09) 09/01/19 07:49 Problem List - Problems (1) Dysphagia Assessment/Plan: >discussed patient with Dr Shannon Patient will have EGD for dilatation of esophageal strictures today NPO Code(s): R13.10 - DYSPHAGIA, UNSPECIFIED
[2019-09-01] MEDS: VANCOMYCIN 1 GRAM (PRE-DOCKED) 1,000 MG/250 ML BAG IVPB SCH ×2 (09:10→18:43)
[2019-09-01] MEDS: PANTOPRAZOLE SODIUM 40 MG VIAL IVPUSH SCH (10:04)
[2019-09-01] MEDS: HYDROCORTISONE 0.5% TOPICAL CREAM 30 GM TUBE TP SCH (10:04)
[2019-09-01] MEDS: BACITRACIN 15 GM TUBE TOPICAL OINTMENT TP SCH (10:05)
[2019-09-01] MEDS: MINERAL OIL/PET HY-PHL TOPICAL OINTMENT 454 GM JAR TP SCH ×2 (10:05→22:09)
[2019-09-01] MEDS ORDERED: SODIUM CHLORIDE 500 ML IV STA (10:09)
--- NOTE | 2019-09-01 13:44 | PN ---
Physical Exam: SUBJECTIVE: Patient seen and examined. No acute events overnight. To go for EGD later today. denies scratching her legs. Denies chest pain, SOB, fever, chills, abd pain. OBJECTIVE: Vital Signs Period Temp Pulse Resp BP Sys/Pittman Pulse Ox Last 24 Hr 98.1 F-98.5 F 78-86 18-20 122-138/78-86 GENERAL: Awake, alert, and fully oriented, in no acute distress. HEAD: Normal with no signs of trauma. EYES: EOMI, no scleral icterus, no ptosis EARS, NOSE, THROAT: dry mucous membranes NECK: supple, trachea midline LUNGS: Breath sounds equal, clear to auscultation bilaterally. No wheezes, and no crackles. No accessory muscle use. HEART: RRR, s1 s2 normal ABDOMEN: Soft, nontender, not distended, normoactive bowel sounds, no guarding, no rebound, no masses MUSCULOSKELETAL: No bony deformities or tenderness EXTREMITIES: L calf with improving edema and blanching erythema, excoriation on anterior tibia. Regular warmth. R LE also edematous and erythematous but improving. Multiple scratch espinoza noted on posterior aspect of right calf NEUROLOGICAL: Pressured, fast speech. sensation intact throughout SKIN: Warm, dry, normal turgor Laboratory Results - last 24 hr 08/29/19 09/01/19 09/01/19 08:23 07:49 07:49 WBC 5.9 RBC 4.11 Hgb 9.4 L Hct 29.5 L MCV 71.8 L MCH 22.9 L MCHC 31.9 L RDW 19.4 H Plt Count 356 MPV 7.7 Absolute Neuts (auto) 3.5 Neutrophils % 58.6 Lymphocytes % 25.3 D Monocytes % 11.1 H Eosinophils % 4.1 D Basophils % 0.9 Nucleated RBC % 0 PT with INR INR PTT (Actin FS) Sodium Potassium Chloride Carbon Dioxide Anion Gap BUN Creatinine Est GFR (CKD-EPI)AfAm Est GFR (CKD-EPI)NonAf Random Glucose Calcium Vancomycin Pre-Dose 17.6 L Blood Type A NEGATIVE Antibody Screen Negative Crossmatch See Detail 09/01/19 09/01/19 09/01/19 07:49 07:49 07:49 WBC RBC Hgb Hct MCV MCH MCHC RDW Plt Count MPV Absolute Neuts (auto) Neutrophils % Lymphocytes % Monocytes % Eosinophils % Basophils % Nucleated RBC % PT with INR 12.10 INR 1.03 PTT (Actin FS) 30.1 Sodium 142 Potassium 3.9 Chloride 110 H Carbon Dioxide 27 Anion Gap 5 L BUN 7.9 Creatinine 0.7 Est GFR (CKD-EPI)AfAm 109.91 Est GFR (CKD-EPI)NonAf 94.84 Random Glucose 81 Calcium 9.1 Vancomycin Pre-Dose Blood Type A NEGATIVE Antibody Screen Negative Crossmatch Active Medications Generic Name Dose Route Start Last Admin Trade Name Freq PRN Reason Stop Dose Admin Acetaminophen 650 mg 08/29/19 17:56 08/29/19 18:07 Tylenol - PO 650 mg Q6H PRN Administration FEVER Bacitracin 1 applic 08/29/19 10:45 09/01/19 10:05 Bacitracin - TP 1 applic DAILY ANA LAURA Administration Emollient Ointment 1 applic 08/30/19 12:00 09/01/19 10:05 Aquaphor - TP 1 applic BID ANA LAURA Administration Hydrocortisone 1 applic 08/31/19 14:30 09/01/19 10:04 Hytone 0.5% Cream - TP 1 applic DAILY ANA LAURA Administration Vancomycin HCl 1,000 mg in 250 mls @ 166.667 mls/hr 08/30/19 07:30 09/01/19 09:10 Vancomycin (Pre-Docked) IVPB 166.667 mls/hr Q12H ANA LAURA Administration Protocol Ampicillin Sodium/Sulbactam 100 mls @ 200 mls/hr 08/31/19 08:35 09/01/19 11: 05 Sodium 1.5 gm/ Sodium Chloride IVPB 200 mls/hr Q6H-IV ANA LAURA Administration Pantoprazole Sodium 40 mg 08/29/19 10:00 09/01/19 10:04 Protonix Iv IVPUSH 40 mg DAILY ANA LAURA Administration ASSESSMENT/PLAN: 58 y/o/f with PMHx of HTN, chronic venous insufficiency, GERD, dysphagia, recurrent cellulitis presents to ED for erythema, swelling and pain of L LE. Admitted for b/l cellulitis of LE. Cellulitis - likely 2/2 chronic venous insufficiency - doppler negative for DVT - c/w empiric vanc, pt had MRSA from a different wound in 2018 (Vanco started on 08/29) - Continue unysyn 1.5 Q6hr (started on 08/30) - ID on board, further abx as per ID. Switch to PO once eating well after EGD - Blood cultures negative to date - Wound care consulted, recs appreciated - Bacitracin to left LE - Elevate the lower extremity above the level of the heart at all times while at rest - Bilateral compression with meera wraps once cellulitis has receded (wrap from metacarpal heads to below knee) - Domeboro soaks QD (astringent for pruritus) - Apply Lac hydrin daily (for dry scaly skin) - Hydrocortisone cream, Aquaphor to affected extremities Microcytic Anemia , acute vs chronic - Iron studies showing iron deficiency anemia - Transfused 2 units PRBC. Hgb now above 8. Continue to monitor, transfuse as needed. - Stool occult test negative - GI consulted recs appreciated - Transfuse for Hgb >8 for EGD #HTN - normotensive, continue to monitor #Dysphagia - TSH 0.82 - Speech/Swallow recommending chopped diet, moist soft food, easy to chew - patient will have inpatient EGD to dilate esophageal strictures. Known to Dr. Shannon #FEN - monitor and replete lytes as needed - diet as per GI s/p EGD #DVTPPX - Holding chemical AC for EGD #Dispostion - EGD today - Will need outpatient GI follow up - D/C pending clinical improvement Visit type - Emergency Visit Emergency Visit: Yes ED Registration Date: 08/29/19 Care time: The patient presented to the Emergency Department on the above date and was hospitalized for further evaluation of their emergent condition. - New Patient This patient is new to me today: No - Critical Care Critical Care patient: No ATTENDING PHYSICIAN STATEMENT I saw and evaluated the patient. I reviewed the resident's note and discussed the case with the resident. I agree with the resident's findings and plan as documented. SUBJECTIVE: OBJECTIVE: ASSESSMENT AND PLAN:
--- NOTE | 2019-09-01 14:14 | PN ---
Teaching Attending Note Name of Resident: Reid Lee ATTENDING PHYSICIAN STATEMENT I saw and evaluated the patient. I reviewed the resident's note and discussed the case with the resident. I agree with the resident's findings and plan as documented with exceptions below. SUBJECTIVE: patient seen and examined, leg symptoms improved, awaiting EGD, no new complaints. OBJECTIVE: Vital Signs Period Temp Pulse Resp BP Sys/Pittman Pulse Ox Last 24 Hr 98.1 F-98.5 F 78-86 18-20 122-138/78-86 Intake & Output 08/29/19 08/30/19 08/31/19 09/01/19 23:59 23:59 23:59 23:59 Intake Total 980 1500 1300 100 Balance 980 1500 1300 100 Weight 135 lb 8 oz 139 lb 11.2 oz 137 lb General: sitting in bed, no acute distress Chest: CTAb, no rales or wheezing Abdomen:soft, NT Extremities: improved LE erythema/warmth, some improvement in edema, scabs with old scratch espinoza noted, pos pulses Home Medications Medication Instructions Recorded Lipase/Protease/Amylase [Madhavi Arzola 1 each PO DAILY 05/14/18 24,000 Units Capsule] Loratadine [Claritin] 10 mg PO PRN PRN 05/14/18 Naproxen [Naprosyn -] 250 mg PO BID 05/14/18 Oxybutynin Chloride 10 mg PO DAILY 05/14/18 Ranitidine HCl [Zantac] 150 mg PO DAILY 08/29/19 Active Medications Acetaminophen (Tylenol -) 650 mg PO Q6H PRN PRN Reason: FEVER Last Admin: 08/29/19 18:07 Dose: 650 mg Bacitracin (Bacitracin -) 1 applic TP DAILY [facility] Last Admin: 09/01/19 10:05 Dose: 1 applic Emollient Ointment (Aquaphor -) 1 applic TP BID ANA LAURA Last Admin: 09/01/19 10:05 Dose: 1 applic Hydrocortisone (Hytone 0.5% Cream -) 1 applic TP DAILY [facility] Last Admin: 09/01/19 10:04 Dose: 1 applic Vancomycin HCl (Vancomycin (Pre-Docked)) 1,000 mg in 250 mls @ 166.667 mls/hr IVPB Q12H ANA LAURA; Protocol Last Admin: 09/01/19 09:10 Dose: 166.667 mls/hr Ampicillin Sodium/Sulbactam (Sodium 1.5 gm/ Sodium Chloride) 100 mls @ 200 mls/ hr IVPB Q6H-IV ANA LAURA Last Admin: 09/01/19 11:05 Dose: 200 mls/hr Pantoprazole Sodium (Protonix Iv) 40 mg IVPUSH DAILY ANA LAURA Last Admin: 09/01/19 10:04 Dose: 40 mg Laboratory Results - last 24 hr 08/29/19 09/01/19 09/01/19 08:23 07:49 07:49 WBC 5.9 RBC 4.11 Hgb 9.4 L Hct 29.5 L MCV 71.8 L MCH 22.9 L MCHC 31.9 L RDW 19.4 H Plt Count 356 MPV 7.7 Absolute Neuts (auto) 3.5 Neutrophils % 58.6 Lymphocytes % 25.3 D Monocytes % 11.1 H Eosinophils % 4.1 D Basophils % 0.9 Nucleated RBC % 0 PT with INR INR PTT (Actin FS) Sodium Potassium Chloride Carbon Dioxide Anion Gap BUN Creatinine Est GFR (CKD-EPI)AfAm Est GFR (CKD-EPI)NonAf Random Glucose Calcium Vancomycin Pre-Dose 17.6 L Blood Type A NEGATIVE Antibody Screen Negative Crossmatch See Detail 09/01/19 09/01/19 09/01/19 07:49 07:49 07:49 WBC RBC Hgb Hct MCV MCH MCHC RDW Plt Count MPV Absolute Neuts (auto) Neutrophils % Lymphocytes % Monocytes % Eosinophils % Basophils % Nucleated RBC % PT with INR 12.10 INR 1.03 PTT (Actin FS) 30.1 Sodium 142 Potassium 3.9 Chloride 110 H Carbon Dioxide 27 Anion Gap 5 L BUN 7.9 Creatinine 0.7 Est GFR (CKD-EPI)AfAm 109.91 Est GFR (CKD-EPI)NonAf 94.84 Random Glucose 81 Calcium 9.1 Vancomycin Pre-Dose Blood Type A NEGATIVE Antibody Screen Negative Crossmatch Microbiology 08/29/19 01:45 Blood - Peripheral Venous Blood Culture - Preliminary NO GROWTH OBTAINED AFTER 72 HOURS, INCUBATION TO CONTINUE FOR 2 DAYS. 08/29/19 01:45 Blood - Peripheral Venous Blood Culture - Preliminary NO GROWTH OBTAINED AFTER 72 HOURS, INCUBATION TO CONTINUE FOR 2 DAYS. 08/29/19 09:50 Nares - Mrsa Screen - Right MRSA Screen - Final NO MRSA ISOLATED 08/29/19 04:46 Nares - Mrsa Screen - Left MRSA Screen - Final NO MRSA ISOLATED ASSESSMENT AND PLAN: 58 yof with PMHx of HTN, chronic venous insufficiency, GERD, recurrent cellulitis(h/o MRSA) s/p debridement, long standing dysphagia with known esophageal stricture/Hiatal hernia, follows Dr. hernandez, admitted with LLE cellulitis. -Bilateral LE cellulitis -Acute on chronic iron deficiency anemia -Esophageal strictures with dysphagia to solids -Hiatal hernia -Chronic venous insufficiency -HTN -GERD Plan; Unasyn day 3/vancomycin day 4. Symptoms improved. Monitor vanco levels. ID input noted Steroid cream. leg elevation. Blood cx neg so far. GI input noted. For EGD/dilation today. s/p 2 units PRBC, appropriate response, monitor h/h FOBT neg, no gross evidence of bleed. Speech/swallow input noted. Continue PPI, avoid NSAIDs DVTPPX SCDs dispo after EGD in 24 hours on PO abx if continues to improve. PT eval noted. Plan discussed with patient in detail, all questions answered.
--- NOTE | 2019-09-01 15:30 | PN ---
Progress Note (short form) - Note Progress Note: s/p transfusion for endoscopy today ambulating without pain legs less itchy Vital Signs Period Temp Pulse Resp BP Sys/Pittman Pulse Ox Last 24 Hr 98.1 F-98.5 F 78-86 18-20 122-138/78-86 cor-rrr lungs clear abd soft,nt ext less erythema, less edema CBC, BMP 09/01/19 07:49 09/01/19 07:49 Microbiology 08/29/19 01:45 Blood - Peripheral Venous Blood Culture - Preliminary NO GROWTH OBTAINED AFTER 72 HOURS, INCUBATION TO CONTINUE FOR 2 DAYS. 08/29/19 01:45 Blood - Peripheral Venous Blood Culture - Preliminary NO GROWTH OBTAINED AFTER 72 HOURS, INCUBATION TO CONTINUE FOR 2 DAYS. 08/29/19 09:50 Nares - Mrsa Screen - Right MRSA Screen - Final NO MRSA ISOLATED 08/29/19 04:46 Nares - Mrsa Screen - Left MRSA Screen - Final NO MRSA ISOLATED a/p cellulitis LLE history MRSA-nares now negative sulfa allergy anemia continue vancomycin and unasyn in hospital steroid cream cellulitis improving po augmentin when ready for discharge- would use suspension if pills are too big to swallow continue hc cream Problem List - Problems (1) Cellulitis Code(s): L03.90 - CELLULITIS, UNSPECIFIED Qualifiers: Site of cellulitis: extremity Site of cellulitis of extremity: lower extremity Laterality: left Qualified Code(s): L03.116 - Cellulitis of left lower limb (2) MRSA (methicillin resistant Staphylococcus aureus) colonization Code(s): Z22.322 - CARRIER OR SUSPECTED CARRIER OF METHICILLIN RESIS STAPH (3) Anemia Code(s): D64.9 - ANEMIA, UNSPECIFIED Qualifiers: Anemia type: unspecified type Qualified Code(s): D64.9 - Anemia, unspecified
[2019-09-01] MEDS ORDERED: TRIAMCINOLONE ACET 40MG/1ML VIAL ONE (16:33)
[2019-09-01] MEDS ORDERED: LACTATED RINGERS SOLUTION 1,000 ML IV SCH (17:00)
[2019-09-01] MEDS ORDERED: TRIAMCINOLONE ACETONIDE 40 MG/ML 10 ML VIAL IM ONE (17:13)
[2019-09-01] MEDS: LACTATED RINGERS SOLUTION 1,000 ML IV SCH (18:19)
--- NOTE | 2019-09-01 19:00 | CONS ---
DATE OF CONSULTATION: 08/29/2019 This is a 58-year-old woman, past medical history of MRSA skin infection. She has had recurrent cellulitis and now comes in with worsening erythema and redness and pain of her left lower extremity. She was scratching her legs over the weekend. She was wearing at that point stockings that became, she said, filled with fluid and wet. Her leg became more red, she had chills at home, and she came to the emergency room. She denies fevers, nausea, vomiting. She is able to ambulate. In the ER, she had a duplex of her leg that was negative for DVT. She was started on vancomycin, given the prior MRSA history. Past medical history is notable for hypertension, chronic venous insufficiency, GERD, dysphagia, recurrent cellulitis of her leg. She has a history of prior debridement of the left lower extremity in 2010. She has venous insufficiency of the leg as well. In our computer, in 2018 she had a right thumb infection that grew MRSA. Her surgical history is notable for a prior cholecystectomy, debridement of her left leg, and lithotripsy. SOCIAL HISTORY: She is a single parent. She lives with her 23-year-old son and 18-year-old daughter. No history of cigarette, alcohol, or substance use. She has a pet cat and a pet dog. Denies any bites or scratches from her cat. She is allergic to SULFA MEDICATIONS. She reports poor eating habits due to her history of GERD. Her medications at home include Pancrease enzymes, Claritin, Naprosyn, and oxybutynin. REVIEW OF SYSTEMS: Her chills have resolved and she is asking when she can go home, but she does note her leg is more red than it usually is. She denies any melena, bloody stool, or hematemesis. The last time she had IV antibiotics was this past summer. Her PCP is Dr. Espinal. PHYSICAL EXAMINATION: General: She is awake and alert. Vital Signs: Her T-max is 100. Pulse is 89. Blood pressure 120/70. Respiratory rate 17. She weighs 61 kg. HEENT: Normocephalic. eyes are anicteric. She has no thrush. Neck: Supple. Lungs: Clear to auscultation. Heart: Regular rate and rhythm. Abdomen: Soft, nontender. Extremities: Both her feet are without any erythema. Extending from her left ankle, extending to below her knee, she has an area where she scratched the skin. It is shiny, it is red, it is warm at the leg and it is swollen. Labs are notable for a white count of 6.4, hemoglobin 6.7, platelets 357. Her BUN is 13 and creatinine 1. Urinalysis is negative. She has had a prior hemoglobin of 9.1 in January. Blood cultures and MRSA screen are pending. In summary, this is a 58-year-old woman admitted with cellulitis of her leg and anemia. She is having a blood transfusion. Follow up of the anemia with GI. Regarding her cellulitis, would agree with vancomycin, with plans for switch to oral clindamycin at time of discharge, as she is allergic to SULFA. Further recommendations to follow. SCOUT ENCARNACION M.D. MARCELINO/[id number]
[2019-09-01] MEDS: ACETAMINOPHEN 325 MG TABLET (FP) PO PRN (19:11)
[2019-09-02] MEDS ORDERED: SODIUM CHLORIDE 100 ML IVPB ONE ×4 (03:05→20:22)
[2019-09-02] MEDS ORDERED: AMPICILLIN NA/SULBACTAM NA 1.5 GM VIAL ONE ×4 (03:05→20:22)
[2019-09-02] MEDS: AMPICILLIN NA/SULBACTAM NA 1.5 GM in SODIUM CHLORIDE 100 ML IVPB SCH ×4 (03:07→21:21)
[2019-09-02] MEDS: VANCOMYCIN 1 GRAM (PRE-DOCKED) 1,000 MG/250 ML BAG IVPB SCH ×2 (06:37→20:25)
[2019-09-02 07:20] LABS: HEMOGLOBIN 9.5 GM/dL (10.7-15.3); MCH 23.2 pg (25.7-33.7); MCHC 31.7 g/dl (32.0-36.0); MEAN CELL VOLUME 73.1 fl (80-96); MEAN PLT VOLUME 7.8 fl (7.5-11.1); PLATELET COUNT 373 K/MM3 (134-434); RDW 19.6 % (11.6-15.6); WHITE BLOOD COUNT 7.1 K/mm3 (4.0-10.0)
[2019-09-02] MEDS: PANTOPRAZOLE SODIUM 40 MG VIAL IVPUSH SCH (10:49)
--- NOTE | 2019-09-02 10:49 | PN.GI ---
GI Progress Note Subjective: For Dr. Shannon who resumes care 09/04: No acute events overnight Had EGD: Underwent balloon dilation of a tight proximal esophageal stricture. dilated to 8-9mm - Objective Vital Signs: Vital Signs Temperature 97.7 F 09/02/19 06:00 Pulse Rate 89 09/02/19 06:00 Respiratory Rate 20 09/02/19 06:00 Blood Pressure 131/70 09/02/19 06:00 O2 Sat by Pulse Oximetry (%) 96 09/01/19 20:07 Constitutional: Calm Eyes: No: Sclera Icterus Cardiovascular: Yes: Regular Rate and Rhythm, Murmur Respiratory: Yes: CTA Bilaterally Gastrointestinal Inspection: No: Distention ...Auscultate: Yes: Normoactive Bowel Sounds ...Palpate: Yes: Soft ...Percussion: No: Tympanitic Edema: Yes Neurological: Yes: Alert Labs: CBC, BMP 09/02/19 06:22 09/01/19 07:49 INR, PTT INR 1.03 (0.83-1.09) 09/01/19 07:49 Problem List - Problems (1) Esophageal stricture Assessment/Plan: S/P dilation of stricture. will need repeat EGD in 2 weeks Advance to clears the full liquids Protonix 40mg daily Code(s): K22.2 - ESOPHAGEAL OBSTRUCTION (2) Anemia Assessment/Plan: Microcytic anemia Follow-up as outpatient with Dr. Shannon for further evaluation work-up per PMD as well Code(s): D64.9 - ANEMIA, UNSPECIFIED (3) Murmur Assessment/Plan: Evaluation per PMD Code(s): R01.1 - CARDIAC MURMUR, UNSPECIFIED
[2019-09-02] MEDS: BACITRACIN 15 GM TUBE TOPICAL OINTMENT TP SCH (10:54)
[2019-09-02] MEDS: MINERAL OIL/PET HY-PHL TOPICAL OINTMENT 454 GM JAR TP SCH ×2 (10:55→21:21)
[2019-09-02] MEDS: HYDROCORTISONE 0.5% TOPICAL CREAM 30 GM TUBE TP SCH (10:55)
--- NOTE | 2019-09-02 11:26 | PN ---
Physical Exam: SUBJECTIVE: Patient seen and examined, no new chest or abdominal pain or complaints. Leg symptoms improved. OBJECTIVE: Vital Signs Period Temp Pulse Resp BP Sys/Pittman Pulse Ox Last 24 Hr 97.6 F-98.3 F 77-89 17-24 113-145/52-95 96-100 Intake & Output 08/30/19 08/31/19 09/01/19 09/02/19 23:59 23:59 23:59 23:59 Intake Total 1500 1300 1250 875 Balance 1500 1300 1250 875 Weight 139 lb 11.2 oz 137 lb 130 lb 9.6 oz GENERAL: ambulating in room, no acute distress Neck: soft, supple Chest: CTAB, no rales or wheezing Abdomen:Soft, NT throughout, ND, pos bowel sounds Extremities; markedly improved swelling/erythema/warmth, scabs, no new scratch espinoza Home Medications Medication Instructions Recorded Lipase/Protease/Amylase [Creon Dr 1 each PO DAILY 05/14/18 24,000 Units Capsule] Loratadine [Claritin] 10 mg PO PRN PRN 05/14/18 Naproxen [Naprosyn -] 250 mg PO BID 05/14/18 Oxybutynin Chloride 10 mg PO DAILY 05/14/18 Ranitidine HCl [Zantac] 150 mg PO DAILY 08/29/19 Laboratory Results - last 24 hr 08/29/19 09/02/19 08:23 06:22 WBC 7.1 RBC 4.10 Hgb 9.5 L Hct 30.0 L MCV 73.1 L MCH 23.2 L MCHC 31.7 L RDW 19.6 H Plt Count 373 MPV 7.8 Blood Type A NEGATIVE Antibody Screen Negative Crossmatch See Detail Active Medications Generic Name Dose Route Start Last Admin Trade Name Freq PRN Reason Stop Dose Admin Acetaminophen 650 mg 09/01/19 17:41 09/01/19 19:11 Tylenol - PO 650 mg Q6H PRN Administration FEVER Bacitracin 1 applic 09/02/19 10:00 09/02/19 10:54 Bacitracin - TP 1 applic DAILY ANA LAURA Administration Emollient Ointment 1 applic 09/01/19 22:00 09/02/19 10:55 Aquaphor - TP 1 applic BID ANA LAURA Administration Hydrocortisone 1 applic 09/02/19 10:00 09/02/19 10:55 Hytone 0.5% Cream - TP 1 appful DAILY ANA LAURA Administration Ampicillin Sodium/Sulbactam 100 mls @ 200 mls/hr 09/01/19 21:00 09/02/19 10: 49 Sodium 1.5 gm/ Sodium Chloride IVPB 200 mls/hr Q6H-IV ANA LAURA Administration Lactated Ringer's 1,000 mls @ 75 mls/hr 09/01/19 17:41 09/01/19 18:19 Lactated Ringers Solution IV 75 mls/hr ASDIR ANA LAURA Administration Vancomycin HCl 1,000 mg in 250 mls @ 166.667 mls/hr 09/01/19 19:30 09/02/19 06:37 Vancomycin (Pre-Docked) IVPB 166.667 mls/hr Q12H ANA LAURA Administration Protocol Pantoprazole Sodium 40 mg 09/02/19 10:00 09/02/19 10:49 Protonix Iv IVPUSH 40 mg DAILY ANA LAURA Administration Microbiology 08/29/19 01:45 Blood - Peripheral Venous Blood Culture - Preliminary NO GROWTH OBTAINED AFTER 96 HOURS, INCUBATION TO CONTINUE FOR 1 DAYS. 08/29/19 01:45 Blood - Peripheral Venous Blood Culture - Preliminary NO GROWTH OBTAINED AFTER 96 HOURS, INCUBATION TO CONTINUE FOR 1 DAYS. 08/29/19 09:50 Nares - Mrsa Screen - Right MRSA Screen - Final NO MRSA ISOLATED 08/29/19 04:46 Nares - Mrsa Screen - Left MRSA Screen - Final NO MRSA ISOLATED ASSESSMENT/PLAN: 58 yof with PMHx of HTN, chronic venous insufficiency, GERD, recurrent cellulitis(h/o MRSA) s/p debridement, long standing dysphagia with known esophageal stricture/Hiatal hernia, follows Dr. hernandez, admitted with LLE cellulitis. -Bilateral LE cellulitis -Acute on chronic iron deficiency anemia -Proximal Esophageal strictures s/p dilatatiopn 8-9 mm on 09/01 -Dysphagia due to above -Hiatal hernia -Chronic venous insufficiency -HTN -GERD Plan; GI input noted. advance diet as paloma. For esophagogram, Speech/swallow input noted. Leg symptoms markedly improved. Unasyn day 4/vancomycin day 3. ID input noted. Continue IV while inhouse. Steroid/aquaphor cream patient counseled on avoiding scratching. s/p 2 units PRBC, h/h stable. FOBT neg, no gross evidence of bleed. Continue PPI, avoid NSAIDs DVTPPX SCDs dispo dc home on Wednesday after esophagogram if no concerns, tolerating diet well and leg symptoms improved. Plan discussed with patient and nursing in detail, all questions answered. Visit type - Emergency Visit Emergency Visit: Yes ED Registration Date: 08/29/19 Care time: The patient presented to the Emergency Department on the above date and was hospitalized for further evaluation of their emergent condition. - New Patient This patient is new to me today: No - Critical Care Critical Care patient: No - Discharge Referral Referred to [facility] No
[2019-09-02] MEDS: ACETAMINOPHEN 325 MG TABLET (FP) PO PRN (20:11)
[2019-09-02] MEDS: LACTATED RINGERS SOLUTION 1,000 ML IV SCH (21:22)
[2019-09-03] MEDS ORDERED: AMPICILLIN NA/SULBACTAM NA 1.5 GM VIAL ONE ×4 (02:41→20:01)
[2019-09-03] MEDS ORDERED: SODIUM CHLORIDE 100 ML IVPB ONE ×4 (02:42→20:01)
[2019-09-03] MEDS: AMPICILLIN NA/SULBACTAM NA 1.5 GM in SODIUM CHLORIDE 100 ML IVPB SCH ×4 (02:58→20:04)
[2019-09-03] MEDS: VANCOMYCIN 1 GRAM (PRE-DOCKED) 1,000 MG/250 ML BAG IVPB SCH ×2 (07:56→20:20)
[2019-09-03] MEDS: PANTOPRAZOLE SODIUM 40 MG VIAL IVPUSH SCH (10:52)
[2019-09-03] MEDS: BACITRACIN 15 GM TUBE TOPICAL OINTMENT TP SCH (10:53)
[2019-09-03] MEDS: HYDROCORTISONE 0.5% TOPICAL CREAM 30 GM TUBE TP SCH ×2 (10:54)
[2019-09-03] MEDS: MINERAL OIL/PET HY-PHL TOPICAL OINTMENT 454 GM JAR TP SCH ×2 (10:54→22:27)
--- NOTE | 2019-09-03 11:53 | PN ---
Teaching Attending Note Name of Resident: Reid Lee ATTENDING PHYSICIAN STATEMENT I saw and evaluated the patient. I reviewed the resident's note and discussed the case with the resident. I agree with the resident's findings and plan as documented with exceptions below. SUBJECTIVE: Patient seen and examined. tolerating soft diet, no complaints. OBJECTIVE: Vital Signs Period Temp Pulse Resp BP Sys/Pittman Pulse Ox Last 24 Hr 97.5 F-98.1 F 75-94 20-20 117-137/68-81 Intake & Output 08/31/19 09/01/19 09/02/19 09/03/19 23:59 23:59 23:59 23:59 Intake Total 1300 1250 2300 1050 Balance 1300 1250 2300 1050 Weight 137 lb 130 lb 9.6 oz 138 lb 9.6 oz General: sitting in bed, no acute distress neck: soft, supple Chest: CTAB, no rales or wheezing Abdomen; soft, ND Extremities: continued improvement in leg swelling and erythema, scabs noted, no new scratch espinoza Home Medications Medication Instructions Recorded Lipase/Protease/Amylase [Madhavi Dr 1 each PO DAILY 05/14/18 24,000 Units Capsule] Loratadine [Claritin] 10 mg PO PRN PRN 05/14/18 Naproxen [Naprosyn -] 250 mg PO BID 05/14/18 Oxybutynin Chloride 10 mg PO DAILY 05/14/18 Ranitidine HCl [Zantac] 150 mg PO DAILY 08/29/19 Active Medications Acetaminophen (Tylenol -) 650 mg PO Q6H PRN PRN Reason: FEVER Last Admin: 09/02/19 20:11 Dose: 650 mg Bacitracin (Bacitracin -) 1 applic TP DAILY ANA LAURA Last Admin: 09/03/19 10:53 Dose: 1 applic Emollient Ointment (Aquaphor -) 1 applic TP BID ANA LAURA Last Admin: 09/03/19 10:54 Dose: 1 applic Hydrocortisone (Hytone 0.5% Cream -) 1 applic TP DAILY ANA LAURA Last Admin: 09/03/19 10:54 Dose: 1 appful Ampicillin Sodium/Sulbactam (Sodium 1.5 gm/ Sodium Chloride) 100 mls @ 200 mls/ hr IVPB Q6H-IV ANA LAURA Last Admin: 09/03/19 10:53 Dose: 200 mls/hr Lactated Ringer's (Lactated Ringers Solution) 1,000 mls @ 75 mls/hr IV ASDIR ANA LAURA Last Admin: 09/02/19 21:22 Dose: 75 mls/hr Vancomycin HCl (Vancomycin (Pre-Docked)) 1,000 mg in 250 mls @ 166.667 mls/hr IVPB Q12H ANA LAURA; Protocol Last Admin: 09/03/19 07:56 Dose: 166.667 mls/hr Pantoprazole Sodium (Protonix Iv) 40 mg IVPUSH DAILY ANA LAURA Last Admin: 09/03/19 10:52 Dose: 40 mg Laboratory Results - last 24 hr 09/03/19 02:00 Stool Occult Blood Negative Microbiology 08/29/19 01:45 Blood - Peripheral Venous Blood Culture - Final NO GROWTH AFTER 5 DAYS INCUBATION 08/29/19 01:45 Blood - Peripheral Venous Blood Culture - Final NO GROWTH AFTER 5 DAYS INCUBATION 08/29/19 09:50 Nares - Mrsa Screen - Right MRSA Screen - Final NO MRSA ISOLATED 08/29/19 04:46 Nares - Mrsa Screen - Left MRSA Screen - Final NO MRSA ISOLATED ASSESSMENT AND PLAN: 58 yof with PMHx of HTN, chronic venous insufficiency, GERD, recurrent cellulitis(h/o MRSA) s/p debridement, long standing dysphagia with known esophageal stricture/Hiatal hernia, follows Dr. hernandez, admitted with LLE cellulitis. -Bilateral LE cellulitis -Acute on chronic iron deficiency anemia -Proximal Esophageal strictures s/p dilatatiopn 8-9 mm on 09/01 -Dysphagia due to above -Hiatal hernia -Chronic venous insufficiency -HTN -GERD Plan; GI input noted. tolerating soft diet. For esophagogram, Speech/swallow input noted. Leg symptoms markedly improved. Unasyn day 5/vancomycin day 4. Transition to augmentin on dc with hydrocortisone cream patient counseled on avoiding scratching. s/p 2 units PRBC, h/h stable. FOBT neg, no gross evidence of bleed. Continue PPI, avoid NSAIDs DVTPPX SCDs dispo dc home on Wednesday after esophagogram if no concerns, tolerating diet well and leg symptoms improved. Plan discussed with patient and nursing, all questions answered.
--- NOTE | 2019-09-03 12:24 | PN ---
Physical Exam: SUBJECTIVE: Patient seen and examined. No acute overnight events. Patient comfortable. OBJECTIVE: Vital Signs Period Temp Pulse Resp BP Sys/Pittman Pulse Ox Last 24 Hr 97.5 F-98.1 F 75-94 20-20 117-137/68-81 GENERAL: Awake, alert, and fully oriented, in no acute distress. HEAD: Normal with no signs of trauma. EYES: EOMI, no scleral icterus, no ptosis EARS, NOSE, THROAT: dry mucous membranes NECK: supple, trachea midline LUNGS: Breath sounds equal, clear to auscultation bilaterally. No wheezes, and no crackles. No accessory muscle use. HEART: RRR, s1 s2 normal ABDOMEN: Soft, nontender, not distended, normoactive bowel sounds, no guarding, no rebound, no masses MUSCULOSKELETAL: No bony deformities or tenderness EXTREMITIES: L calf with improving edema and blanching erythema. R LE mildly erythematous and edematous NEUROLOGICAL: Pressured, fast speech. sensation intact throughout SKIN: Warm, dry, normal turgor Laboratory Results - last 24 hr 09/03/19 02:00 Stool Occult Blood Negative Active Medications Generic Name Dose Route Start Last Admin Trade Name Freq PRN Reason Stop Dose Admin Acetaminophen 650 mg 09/01/19 17:41 09/02/19 20:11 Tylenol - PO 650 mg Q6H PRN Administration FEVER Bacitracin 1 applic 09/02/19 10:00 09/03/19 10:53 Bacitracin - TP 1 applic DAILY ANA LAURA Administration Emollient Ointment 1 applic 09/01/19 22:00 09/03/19 10:54 Aquaphor - TP 1 applic BID ANA LAURA Administration Hydrocortisone 1 applic 09/02/19 10:00 09/03/19 10:54 Hytone 0.5% Cream - TP 1 appful DAILY ANA LAURA Administration Ampicillin Sodium/Sulbactam 100 mls @ 200 mls/hr 09/01/19 21:00 09/03/19 10: 53 Sodium 1.5 gm/ Sodium Chloride IVPB 200 mls/hr Q6H-IV ANA LAURA Administration Lactated Ringer's 1,000 mls @ 75 mls/hr 09/01/19 17:41 09/02/19 21:22 Lactated Ringers Solution IV 75 mls/hr ASDIR ANA LAURA Administration Vancomycin HCl 1,000 mg in 250 mls @ 166.667 mls/hr 09/01/19 19:30 09/03/19 07:56 Vancomycin (Pre-Docked) IVPB 166.667 mls/hr Q12H ANA LAURA Administration Protocol Pantoprazole Sodium 40 mg 09/02/19 10:00 09/03/19 10:52 Protonix Iv IVPUSH 40 mg DAILY ANA LAURA Administration ASSESSMENT/PLAN: 58 y/o/f with PMHx of HTN, chronic venous insufficiency, GERD, dysphagia, recurrent cellulitis presents to ED for erythema, swelling and pain of L LE. Admitted for b/l cellulitis of LE. #Cellulitis - likely 2/2 chronic venous insufficiency - doppler negative for DVT - c/w empiric vanc, pt had MRSA from a different wound in 2018 (Vanco started on 08/29) - Continue unysyn 1.5 Q6hr (started on 08/30) - ID on board, further abx as per ID. Switch to PO once eating well after EGD - Blood cultures negative to date - Wound care consulted, recs appreciated - Bacitracin to left LE - Elevate the lower extremity above the level of the heart at all times while at rest - Bilateral compression with meera wraps once cellulitis has receded (wrap from metacarpal heads to below knee) - Domeboro soaks QD (astringent for pruritus) - Apply Lac hydrin daily (for dry scaly skin) - Hydrocortisone cream, Aquaphor to affected extremities #Microcytic Anemia, acute vs chronic - Iron studies showing iron deficiency anemia - Transfused 2 units PRBC. Hgb now above 8. Continue to monitor - GI consulted recs appreciated - Transfuse for Hgb >8 for EGD #HTN - normotensive, continue to monitor #Dysphagia - TSH 0.82 - Speech/Swallow recommending chopped diet, moist soft food, easy to chew - s/p EGD with dilation of strictures. Will need repeat EGD in 2 weeks - Protonix 40mg daily #FEN - monitor and replete lytes as needed - Full liquid diet #DVTPPX - holding chemical AC, s/p EGD #Dispostion - Will need outpatient GI follow up - D/C likely tomorrow if Esophgram without concerns and cellulitis continues to improve Visit type - Emergency Visit Emergency Visit: Yes ED Registration Date: 08/29/19 Care time: The patient presented to the Emergency Department on the above date and was hospitalized for further evaluation of their emergent condition. - New Patient This patient is new to me today: No - Critical Care Critical Care patient: No ATTENDING PHYSICIAN STATEMENT I saw and evaluated the patient. I reviewed the resident's note and discussed the case with the resident. I agree with the resident's findings and plan as documented. SUBJECTIVE: OBJECTIVE: ASSESSMENT AND PLAN:
[2019-09-03] MEDS ORDERED: PT OWN MED DRAWER 7, Y5N ONE (18:49)
[2019-09-04] MEDS ORDERED: AMPICILLIN NA/SULBACTAM NA 1.5 GM VIAL ONE ×3 (02:05→14:30)
[2019-09-04] MEDS ORDERED: SODIUM CHLORIDE 100 ML IVPB ONE ×3 (02:06→14:31)
[2019-09-04] MEDS: AMPICILLIN NA/SULBACTAM NA 1.5 GM in SODIUM CHLORIDE 100 ML IVPB SCH ×3 (02:10→14:42)
[2019-09-04] MEDS: LACTATED RINGERS SOLUTION 1,000 ML IV SCH (02:11)
[2019-09-04] MEDS: VANCOMYCIN 1 GRAM (PRE-DOCKED) 1,000 MG/250 ML BAG IVPB SCH (07:06)
--- NOTE | 2019-09-04 08:10 | PN ---
Progress Note, Physician History of Present Illness: GI FOLLOW UP NOTE Patient examined and case discussed with Dr Shannon. Patient is s/p EGD with balloon dilatation of tight esophageal stricture. Patient states that she is able to swallow better since having EGD. She is scheduled for Barium Esophagram today. Denies nasuea, vomiting, abdominal pain , diarrhea, constipation. - Current Medication List Current Medications: Active Medications Acetaminophen (Tylenol -) 650 mg PO Q6H PRN PRN Reason: FEVER Last Admin: 09/02/19 20:11 Dose: 650 mg Bacitracin (Bacitracin -) 1 applic TP DAILY ANA LAURA Last Admin: 09/03/19 10:53 Dose: 1 applic Emollient Ointment (Aquaphor -) 1 applic TP BID ANA LAURA Last Admin: 09/03/19 22:27 Dose: 1 applic Hydrocortisone (Hytone 0.5% Cream -) 1 applic TP DAILY ANA LAURA Last Admin: 09/03/19 10:54 Dose: 1 appful Ampicillin Sodium/Sulbactam (Sodium 1.5 gm/ Sodium Chloride) 100 mls @ 200 mls/ hr IVPB Q6H-IV ANA LAURA Last Admin: 09/04/19 02:10 Dose: 200 mls/hr Lactated Ringer's (Lactated Ringers Solution) 1,000 mls @ 75 mls/hr IV ASDIR ANA LAURA Last Admin: 09/04/19 02:11 Dose: 75 mls/hr Vancomycin HCl (Vancomycin (Pre-Docked)) 1,000 mg in 250 mls @ 166.667 mls/hr IVPB Q12H ANA LAURA; Protocol Last Admin: 09/04/19 07:06 Dose: 166.667 mls/hr Pantoprazole Sodium (Protonix Iv) 40 mg IVPUSH DAILY ANA LAURA Last Admin: 09/03/19 10:52 Dose: 40 mg - Objective Vital Signs: Vital Signs Temperature 97.8 F 09/04/19 05:39 Pulse Rate 82 09/04/19 05:39 Respiratory Rate 20 09/04/19 05:39 Blood Pressure 146/82 09/04/19 05:39 O2 Sat by Pulse Oximetry (%) 99 09/03/19 20:32 Constitutional: Yes: No Distress, Calm Eyes: Yes: Conjunctiva Clear HENT: Yes: Atraumatic Cardiovascular: Yes: Regular Rate and Rhythm Respiratory: Yes: Regular, CTA Bilaterally Gastrointestinal: Yes: Normal Bowel Sounds, Soft Neurological: Yes: Alert, Oriented Psychiatric: Yes: Alert, Oriented Labs: CBC, BMP 09/02/19 06:22 09/01/19 07:49 INR, PTT INR 1.03 (0.83-1.09) 09/01/19 07:49 <ZackaryBebe segal - Last Filed: 09/04/19 08:07> - Current Medication List Current Medications: Active Medications Acetaminophen (Tylenol -) 650 mg PO Q6H PRN PRN Reason: FEVER Last Admin: 09/02/19 20:11 Dose: 650 mg Bacitracin (Bacitracin -) 1 applic TP DAILY ANA LAURA Last Admin: 09/04/19 10:00 Dose: 1 applic Emollient Ointment (Aquaphor -) 1 applic TP BID ANA LAURA Last Admin: 09/04/19 10:00 Dose: 1 applic Hydrocortisone (Hytone 0.5% Cream -) 1 applic TP DAILY ANA LAURA Last Admin: 09/04/19 10:01 Dose: 1 appful Ampicillin Sodium/Sulbactam (Sodium 1.5 gm/ Sodium Chloride) 100 mls @ 200 mls/ hr IVPB Q6H-IV ANA LAURA Last Admin: 09/04/19 10:00 Dose: 200 mls/hr Lactated Ringer's (Lactated Ringers Solution) 1,000 mls @ 75 mls/hr IV ASDIR ANA LAURA Last Admin: 09/04/19 02:11 Dose: 75 mls/hr Vancomycin HCl (Vancomycin (Pre-Docked)) 1,000 mg in 250 mls @ 166.667 mls/hr IVPB Q12H ANA LAURA; Protocol Last Admin: 09/04/19 07:06 Dose: 166.667 mls/hr Pantoprazole Sodium (Protonix Iv) 40 mg IVPUSH DAILY ANA LAURA Last Admin: 09/04/19 09:58 Dose: 40 mg - Objective Vital Signs: Vital Signs Temperature 97.8 F 09/04/19 05:39 Pulse Rate 82 09/04/19 05:39 Respiratory Rate 20 09/04/19 05:39 Blood Pressure 146/82 09/04/19 05:39 O2 Sat by Pulse Oximetry (%) 99 09/03/19 20:32 Labs: CBC, BMP 09/02/19 06:22 09/01/19 07:49 INR, PTT INR 1.03 (0.83-1.09) 09/01/19 07:49 <Giles Shannon - Last Filed: 09/04/19 12:53> Problem List - Problems (1) Dysphagia Assessment/Plan: >discussed patient with Dr Shannon S/P EGD with ballon dilatation of esophageal stricute, dilated 8-9mm Barium Esophagram scheduled for today NPO then may resume soft diet after procedure Code(s): R13.10 - DYSPHAGIA, UNSPECIFIED <Bebe Raymundo - Last Filed: 09/04/19 08:07> - Problems (1) Anemia Assessment/Plan: Reviewed Barium swallow no evidence of perforation, clinically improved R> advance to soft diet as previous made aware to follow-up Code(s): D64.9 - ANEMIA, UNSPECIFIED Qualifiers: Anemia type: unspecified type Qualified Code(s): D64.9 - Anemia, unspecified <Giles Shannon - Last Filed: 09/04/19 12:53>
[2019-09-04] MEDS: PANTOPRAZOLE SODIUM 40 MG VIAL IVPUSH SCH (09:58)
[2019-09-04] MEDS: BACITRACIN 15 GM TUBE TOPICAL OINTMENT TP SCH (10:00)
[2019-09-04] MEDS: MINERAL OIL/PET HY-PHL TOPICAL OINTMENT 454 GM JAR TP SCH (10:00)
[2019-09-04] MEDS: HYDROCORTISONE 0.5% TOPICAL CREAM 30 GM TUBE TP SCH (10:01)
[2019-09-04 12:15] VITALS: BMI 26.0
--- NOTE | 2019-09-04 15:12 | PN ---
Progress Note, [employer] COORDINATOR - Note Progress Note: Selected Entries 09/03/19 09/03/19 09/03/19 01:00 06:00 10:00 Lunch Supper Temperature 97.5 F L 98 F 97.6 F 09/03/19 09/03/19 09/03/19 11:44 14:00 16:56 Lunch 100% Supper Temperature 97.7 F 97.3 F L 09/03/19 09/03/19 09/04/19 20:00 20:35 05:39 Lunch Supper 100% Temperature 97.5 F L 97.8 F 09/04/19 09:00 Lunch Supper Temperature 98.2 F Laboratory Tests 09/02/19 06:22 WBC 7.1 Had EGD: Underwent balloon dilation of a tight proximal esophageal stricture. dilated to 8-9mm BA swallow-Esophageal stricture med esophagus. On full fluids. Consider Dys puree or ground/thin liquids/ensure Alternate solids with liquids to clear esophaguis OOB for meals and 1-2 hour after meals. f/u GI
--- NOTE | 2019-09-04 15:31 | PN ---
Teaching Attending Note Name of Resident: Reid Lee ATTENDING PHYSICIAN STATEMENT I saw and evaluated the patient. I reviewed the resident's note and discussed the case with the resident. I agree with the resident's findings and plan as documented with exceptions below. SUBJECTIVE: patient seen and examined. tolerating diet . Leg symptoms improved. OBJECTIVE: Vital Signs Period Temp Pulse Resp BP Sys/Pittman Pulse Ox Last 24 Hr 97.3 F-98.5 F 75-88 18-20 126-153/82-92 99 Intake & Output 09/01/19 09/02/19 09/03/19 09/04/19 23:59 23:59 23:59 23:59 Intake Total 1250 2300 4300 450 Balance 1250 2300 4300 450 Weight 130 lb 9.6 oz 138 lb 9.6 oz 138 lb 4 oz General: sitting in chair, no acute distress Chest: CTAB, no rales or wheezing Abdomen: soft, NT Extremities: improved leg edema/swelling/erythema Home Medications Medication Instructions Recorded Lipase/Protease/Amylase [Creon Dr 1 each PO DAILY 05/14/18 24,000 Units Capsule] Loratadine [Claritin] 10 mg PO PRN PRN 05/14/18 Naproxen [Naprosyn -] 250 mg PO BID 05/14/18 Oxybutynin Chloride 10 mg PO DAILY 05/14/18 Ranitidine HCl [Zantac] 150 mg PO DAILY 08/29/19 Active Medications Acetaminophen (Tylenol -) 650 mg PO Q6H PRN PRN Reason: FEVER Last Admin: 09/02/19 20:11 Dose: 650 mg Bacitracin (Bacitracin -) 1 applic TP DAILY ANA LAURA Last Admin: 09/04/19 10:00 Dose: 1 applic Emollient Ointment (Aquaphor -) 1 applic TP BID ANA LAURA Last Admin: 09/04/19 10:00 Dose: 1 applic Hydrocortisone (Hytone 0.5% Cream -) 1 applic TP DAILY ANA LAURA Last Admin: 09/04/19 10:01 Dose: 1 appful Ampicillin Sodium/Sulbactam (Sodium 1.5 gm/ Sodium Chloride) 100 mls @ 200 mls/ hr IVPB Q6H-IV ANA LAURA Last Admin: 09/04/19 14:42 Dose: 200 mls/hr Lactated Ringer's (Lactated Ringers Solution) 1,000 mls @ 75 mls/hr IV ASDIR ANA LAURA Last Admin: 09/04/19 02:11 Dose: 75 mls/hr Vancomycin HCl (Vancomycin (Pre-Docked)) 1,000 mg in 250 mls @ 166.667 mls/hr IVPB Q12H ANA LAURA; Protocol Last Admin: 09/04/19 07:06 Dose: 166.667 mls/hr Pantoprazole Sodium (Protonix Iv) 40 mg IVPUSH DAILY ANA LAURA Last Admin: 09/04/19 09:58 Dose: 40 mg Microbiology 08/29/19 01:45 Blood - Peripheral Venous Blood Culture - Final NO GROWTH AFTER 5 DAYS INCUBATION 08/29/19 01:45 Blood - Peripheral Venous Blood Culture - Final NO GROWTH AFTER 5 DAYS INCUBATION 08/29/19 09:50 Nares - Mrsa Screen - Right MRSA Screen - Final NO MRSA ISOLATED 08/29/19 04:46 Nares - Mrsa Screen - Left MRSA Screen - Final NO MRSA ISOLATED ASSESSMENT AND PLAN: 58 yof with PMHx of HTN, chronic venous insufficiency, GERD, recurrent cellulitis(h/o MRSA) s/p debridement, long standing dysphagia with known esophageal stricture/Hiatal hernia, follows Dr. hernandez, admitted with LLE cellulitis. -Bilateral LE cellulitis -Acute on chronic iron deficiency anemia -Proximal Esophageal strictures s/p dilatatiopn 8-9 mm on 09/01 -Dysphagia due to above -Hiatal hernia -Chronic venous insufficiency -HTN -GERD Plan; Doing well, tolerating diet. EGD with eso stricture dilatation Esophagogram noted Leg symptoms improved Dc on augmentin/HC cream Dc home today with outpatient GI follow up Discussed with patient.
--- NOTE | 2019-09-04 15:53 | PN ---
Progress Note (short form) - Note Progress Note: much improved legs-reports always some erythema at baseline Vital Signs Period Temp Pulse Resp BP Sys/Pittman Pulse Ox Last 24 Hr 97.3 F-98.5 F 75-88 18-20 126-153/82-92 99 cor-rrr lungs clear abd soft,nt ext less erythema, less edema CBC, BMP 09/02/19 06:22 09/01/19 07:49 Microbiology 08/29/19 01:45 Blood - Peripheral Venous Blood Culture - Final NO GROWTH AFTER 5 DAYS INCUBATION 08/29/19 01:45 Blood - Peripheral Venous Blood Culture - Final NO GROWTH AFTER 5 DAYS INCUBATION 08/29/19 09:50 Nares - Mrsa Screen - Right MRSA Screen - Final NO MRSA ISOLATED 08/29/19 04:46 Nares - Mrsa Screen - Left MRSA Screen - Final NO MRSA ISOLATED a/p cellulitis LLE history MRSA-nares now negative sulfa allergy anemia would switch to po augmentin suspension d/w hospitalist Problem List - Problems (1) Cellulitis Code(s): L03.90 - CELLULITIS, UNSPECIFIED Qualifiers: Site of cellulitis: extremity Site of cellulitis of extremity: lower extremity Laterality: left Qualified Code(s): L03.116 - Cellulitis of left lower limb (2) MRSA (methicillin resistant Staphylococcus aureus) colonization Code(s): Z22.322 - CARRIER OR SUSPECTED CARRIER OF METHICILLIN RESIS STAPH (3) Anemia Code(s): D64.9 - ANEMIA, UNSPECIFIED Qualifiers: Anemia type: unspecified type Qualified Code(s): D64.9 - Anemia, unspecified
--- NOTE | 2019-09-04 17:20 | DS ---
Physical Exam: SUBJECTIVE: Patient seen and examined. No acute events overnight. Patient feeling better. Had esophagram this morning without concerns. OBJECTIVE: Vital Signs Period Temp Pulse Resp BP Sys/Pittman Pulse Ox Last 24 Hr 97.5 F-98.5 F 75-88 18-20 133-153/82-92 99 PHYSICAL EXAM GENERAL: Awake, alert, and fully oriented, in no acute distress. HEAD: Normal with no signs of trauma. EYES: EOMI, no scleral icterus, no ptosis EARS, NOSE, THROAT: dry mucous membranes NECK: supple, trachea midline LUNGS: Breath sounds equal, clear to auscultation bilaterally. No wheezes, and no crackles. No accessory muscle use. HEART: RRR, s1 s2 normal ABDOMEN: Soft, nontender, not distended, normoactive bowel sounds, no guarding, no rebound, no masses MUSCULOSKELETAL: No bony deformities or tenderness EXTREMITIES: L calf with improving edema and blanching erythema. R LE mildly erythematous and edematous NEUROLOGICAL: Pressured, fast speech. sensation intact throughout SKIN: Warm, dry, normal turgor LABS HOSPITAL COURSE: Date of Admission:08/29/19 Date of Discharge: 09/04/19 58 y/o/f with PMHx of HTN, chronic venous insufficiency, GERD, dysphagia, recurrent cellulitis presents to ED for erythema, swelling and pain of L LE. Admitted for b/l cellulitis of LE. Patient was treated with empiric vancomycin as she had MRSA in a wound in the past, also started on Unasyn while in the hospital with improvement of her cellulitis. Patient was giving Hydrocortisone cream with improvement as well. Found to be anemic and transfused 2 units PRBC with improvement. Patient complained of dysphagia, known by Dr. Shannon outpatient. EGD completed with dilation of esophageal stricture without complications. Patient was seen by speech/swallow, diet recommendations followed appropriately. Patient discharged with GI follow up as she will need repeat EGD in 2 weeks. Discharged on antibiotics and iron supplements. Minutes to complete discharge: 36 Discharge Summary Problems reviewed: Yes Reason For Visit: ANEMIA,CELLULITIS Current Active Problems Anemia (Acute) Cellulitis (Acute) MRSA (methicillin resistant Staphylococcus aureus) colonization (Acute) Redness and swelling of lower leg (Acute) Anemia (Chronic) Dysphagia (Chronic) Esophageal stricture (Chronic) Murmur (Chronic) Condition: Stable - Instructions Diet, Activity, Other Instructions: You presented to the hospital with worsening redness and swelling of both your legs. You were found to have cellulitis of both lower extremities. You were given antibiotics with improvement in your symptoms. You were seen by Dr. Shannon while admitted and had an EGD completed. During the EGD you had a balloon dilation completed to expand the strictures in your esophagus to help improve your dysphagia. While in the hospital you were noted to be anemic and were transfused 2 units of blood with improvement in your anemia. Medication Changes: 1. You are being discharged on antibiotics. Please take Augmentin as prescribed for 4 days. 2. Continue to apply Hydrocortisone cream to affected extremities as directed. 3. Your Iron levels were noted to be low during this admission. You are being started on a daily iron supplement tablet. Please take as directed. Follow up Labs: 1. Your iron levels were noted to be low during this admission, you are being started on an iron supplement. Please have your iron levels checked in 3 months. 2. Please have your blood count checked in 1 week to monitor for worsening anemia. Follow up with the following physicians: 1. Please follow up with your primary care provider within one week of discharge. 2. Please follow up with Dr. Shannon, Gastroenterology, as you well need a repeat EGD completed in 2 weeks and for further management of your anemia. Activity and Diet 1. You are being discharged home, recommend daily exercise to help strengthen your muscles. 2. Please continue to monitor your diet. You were seen by our speech and swallow specialist who recommended you eat a chopped diet with moist soft, easy to chew food. 3. Avoid scratching your legs as this can lead to repeat infections. Continue all your other medications as prescribed Please return to the ER if you have any signs or symptoms of chest pain, shortness of breath, uncontrollable fever, chills, nausea, vomiting, numbness, tingling, or weakness in any part of your body, changes in vision, or slurred speech. Please return to the ER if symptoms persist, worsen, or new symptoms arise. Referrals: Justin Espinal II, DO [Primary Care Provider] - Giles Shannon MD [Staff Physician] - Disposition: HOME - Home Medications Comprehensive Discharge Medication List: Ambulatory Orders Loratadine [Claritin] 10 mg PO PRN PRN 05/14/18 Ranitidine HCl [Zantac] 150 mg PO DAILY 08/29/19 Amoxicillin/Potassium Clav [Augmentin 250-62.5 mg/5 ml] 500 mg PO TID 4 Days susp.recon 09/04/19 Ferrous Sulfate 325 mg PO DAILY #30 tablet 09/04/19 Hydrocortisone 0.5% Cream [Hytone 0.5% Cream -] 1 applic TP DAILY #1 tube This patient is new to me today: No Emergency Visit: Yes ED Registration Date: 08/29/19 Care time: The patient presented to the Emergency Department on the above date and was hospitalized for further evaluation of their emergent condition. Critical Care patient: No - Discharge Referral Referred to [facility] Med P.C.: No ATTENDING PHYSICIAN STATEMENT I saw and evaluated the patient. I reviewed the resident's note and discussed the case with the resident. I agree with the resident's findings and plan as documented. SUBJECTIVE: OBJECTIVE: ASSESSMENT AND PLAN:
[2019-09-04 17:35] VITALS: BP 130/84; PULSE 84; TEMP 97.9
== END 2019-09-04 19:37 | disposition home or self-care (01) | DRG 383 ==
LOC: JER 21:21 → JERBED 08-29 01:37 → J8W 08-29 07:58
PROVIDERS: ADMIT Internal Medicine; ATTEND Hospitalist
PROC: 30233N1 Transfusion of Nonautologous Red Blood Cells into Peripheral Vein, Percutaneous Approach (ICD-10-PCS; principal; 2019-08-29)
PROC: 0D758ZZ Dilation of Esophagus, Via Natural or Artificial Opening Endoscopic (ICD-10-PCS; 2019-09-01)
DX: L03.116 Cellulitis of left lower limb (principal); D50.9 Iron deficiency anemia, unspecified; R13.10 Dysphagia, unspecified; L03.115 Cellulitis of right lower limb; I44.0 Atrioventricular block, first degree; K22.2 Esophageal obstruction; K21.9 Gastro-esophageal reflux disease without esophagitis; K44.9 Diaphragmatic hernia without obstruction or gangrene; R01.1 Cardiac murmur, unspecified
CPT/HCPCS: 36415; 36430; 36511; 71045-TC-FY; 74220-TC-FY; 80048; 80053; 82272; 82728; 83540; 83550; 83735; 84100; 84443; 85025; 85027; 85610; 85730; 86850; 86900; 86901; 86922; 87040; 87081; 93005; 93010; 93971-TC; 94760; 97116-GP; 97161-GP; 99284-25; G0008; G0480; P9038; P9058; Q2036

== ENCOUNTER 2020-05-14 20:57 | Emergency (ER) | payer OTHER ==
[2020-05-14 21:25] VITALS: BP 144/88; PULSE 86; TEMP 97.8; BMI 25.9
--- NOTE | 2020-05-14 21:26 | PDOC ---
Rapid Medical Evaluation Chief Complaint: Wound Time Seen by Provider: 05/14/20 21:22 Medical Evaluation: Allergies Allergy/AdvReac Type Severity Reaction Status Date / Time Sulfa (Sulfonamide Allergy Severe Hives Verified 03/29/20 20:43 Antibiotics) 05/14/20 21:24 I have performed a brief in-person evaluation of this patient. The patient presents with a chief complaint of: h/o PAD present with complains of redness, swelling and pain to left lower leg. Denies fever Pertinent physical exam findings: unable to fully visualize leg to due wearing high stockings and long pants, afebrile I have ordered the following: CBC, CMP, blood cx The patient will proceed to the ED for further evaluation. Discharge Disposition - Diagnosis Redness and swelling of lower leg - Discharge Dispostion Condition at time of disposition: Stable - Referrals - Patient Instructions - Post Discharge Activity
== END 2020-05-15 00:15 | disposition left against medical advice (07) ==
LOC: JER 20:57
DX: L53.9 Erythematous condition, unspecified (principal); R22.42 Localized swelling, mass and lump, left lower limb
CPT/HCPCS: 99283-25

== ENCOUNTER 2020-05-15 01:42 | Inpatient (IN) | payer OTHER ==
[2020-05-15] MEDS ORDERED: PIPERACILLIN/TAZOBACTAM 4.5 GM VIAL IVPB ONE (02:52)
--- NOTE | 2020-05-15 03:05 | PDOC ---
History of Present Illness - General Chief Complaint: Wound Stated Complaint: REDNESS SWELLING LEFT LEG Time Seen by Provider: 05/15/20 01:53 History Source: Patient - History of Present Illness Initial Comments: 05/15/20 03:20 59-year-old female h/o HTN, Chronic venous insufficiency, GERD, recurrent deepika lulitis of the L LE w a c/o BL LE edema. erythema and pain. reports that she has been having right leg swelling with increased redness for the past several weeks. Patient reports that she has been on antibiotics and symptoms have been getting better. Reports that she scraped left estrada on the dresser yesterday now with increased swelling and redness to the right leg. Denies fever/chill 05/15/20 03:21 Tetanus up-to-date Vascular surgeon : venu PCP: Trudy obrien Past History - Medical History Allergies/Adverse Reactions: Allergies Allergy/AdvReac Type Severity Reaction Status Date / Time Sulfa (Sulfonamide Allergy Severe Hives Verified 03/29/20 20:43 Antibiotics) Home Medications: Ambulatory Orders Ascorbic Acid [Vitamin C] 250 mg PO BID 03/30/20 Chlorthalidone 25 mg PO DAILY 03/30/20 Fluoxetine HCl 20 mg PO DAILY 03/30/20 Amoxicillin/Potassium Clav [Augmentin 875-125 Tablet] 1 each PO BID 7 Days #14 tablet 04/05/20 Clindamycin [Cleocin -] 300 mg PO Q8H 7 Days #21 capsule 04/05/20 Docusate Sodium [Docusate 100 mg] 100 mg PO DAILY 30 Days #30 capsule 04/05/20 Ferrous Sulfate [Iron] 325 mg PO BID #30 tablet 04/05/20 Pantoprazole Sodium [Protonix -] 20 mg PO DAILY #30 tablet.ec 04/05/20 Anemia: Yes Asthma: No Cancer: No Cardiac Disorders: No CVA: No COPD: No CHF: No HTN: Yes Hypercholesterolemia: No Seizures: No - Surgical History Cholecystectomy: Yes (2002) - Immunization History Immunization Up to Date: Yes - Psycho-Social/Smoking History Smoking History: Never smoked Have you smoked in the past 12 months: No If you are a former smoker, when did you quit?: 16 years ago *Physical Exam - Physical Exam General Appearance: Yes: Appropriately Dressed Extremity: positive: Other (+2 edema to right lower leg warm to touch, abrasion/ desquamation to skin) Integumentary: positive: Warm, Erythema, Swelling Neurologic: positive: Fully Oriented, Alert, Normal Mood/Affect ED Treatment Course - LABORATORY CBC & Chemistry Diagram: 05/15/20 03:20 05/15/20 03:20 - RADIOLOGY Radiology Studies Ordered: Category Date Time Status DUPLEX VASCUL US-1 LEG [US] Stat Ultrasound 05/15/20 01:47 Ordered ED Progress Note - Progress Note Progress Note: 05/15/20 03:39 A: cellulitis of the lower extremity P: labs IV US: negative for DVT Medical Decision Making - Medical Decision Making 05/15/20 05:41 Patient signed out to the hospitalist team for admission Discharge - Discharge Information Problems reviewed: Yes Clinical Impression/Diagnosis: Cellulitis Qualifiers: Site of cellulitis: extremity Site of cellulitis of extremity: lower extremity Laterality: unspecified laterality Qualified Code(s): L03.119 - Cellulitis of unspecified part of limb - Admission Yes - Follow up/Referral - Patient Discharge Instructions - Post Discharge Activity
[2020-05-15 03:47] LABS: BASO % 0.9 % (0-2.0); EOS % 4.6 % (0-4.5); HEMATOCRIT 33.8 % (32.4-45.2); LYMPH % 38.1 % (8-40); MCH 26.5 pg (25.7-33.7); MCHC 32.7 g/dl (32.0-36.0); MEAN CELL VOLUME 81.3 fl (80-96); MEAN PLT VOLUME 8.3 fl (7.5-11.1); MONO % 8.4 % (3.8-10.2); PLATELET COUNT 335 K/MM3 (134-434); RBC 4.16 M/mm3 (3.60-5.2); RDW 20.2 % (11.6-15.6)
[2020-05-15] MEDS ORDERED: PIPERACILLIN/TAZOB 4.5 GM 4.5 GM/100 ML BAG IVPB ONE (04:07)
[2020-05-15 04:12] LABS: ALBUMIN 3.4 g/dl (3.4-5.0); BILIRUBIN,TOTAL 0.5 mg/dL (0.2-1); BLOOD UREA NITROGEN 12.6 mg/dL (7-18); CALCIUM 9.7 mg/dL (8.5-10.1); POTASSIUM 3.3 mmol/L (3.5-5.1); TOT PROT 7.1 g/dl (6.4-8.2)
[2020-05-15] MEDS ORDERED: HEPARIN NA (PORCINE) 5,000 UNITS/ML 1ML VIAL SQ SCH (06:00)
[2020-05-15] MEDS ORDERED: POTASSIUM CHLORIDE TABS 20 MEQ TABLET.ER (FP) PO ONE ×3 (06:36→13:38)
[2020-05-15] MEDS ORDERED: POTASSIUM CHLORIDE ORAL LIQUID 20 MEQ/15 ML ONE (06:53)
[2020-05-15] MEDS ORDERED: HEPARIN NA (PORCINE) 5,000 UNITS/ML 1ML VIAL ONE (06:53)
[2020-05-15] MEDS ORDERED: POTASSIUM CHLORIDE TABS 10 MEQ TABLET.ER (FP) ONE (06:55)
--- NOTE | 2020-05-15 07:09 | PN ---
Teaching Attending Note Name of Resident: Aashish Lobo ATTENDING PHYSICIAN STATEMENT I saw and evaluated the patient. I reviewed the resident's note and discussed the case with the resident. I agree with the resident's findings and plan as documented. SUBJECTIVE: 59yoF with history of HTN, GERD, depression, anxiety, chronic venous insufficien cy, and recurrent leg cellulitis with recent admission who presents with 1 week of worsening bilateral lower extremity redness and swelling. Patient was discharged on clindamycin and Augmentin last admission and patient states her legs looked better after completing treatment. Over the past week they have been increasingly swollen and red, some tenderness on the left leg. In the evening [place] scraped her left estrada on a dresser and noted serous drainage so she presented to the ED. Denies fever, chills, purulent drainage. Afebrile and hemodynamically stable in the ED. Labs notable for potassium 3.3, no leukocytosis. Doppler of the LLE was negative. Patient received Zosyn. OBJECTIVE: Vital Signs - 24 hr 05/15/20 05/15/20 01:54 05:52 Temperature 98.0 F 98.8 F Pulse Rate 88 Pulse Rate [ 85 Right Radial] Respiratory 18 17 Rate Blood Pressure 140/70 Blood Pressure 148/79 [Left Arm] O2 Sat by Pulse 98 98 Oximetry (%) EXAM Gen: awake, alert, NAD HEENT: NC/AT; poor dentition CV: RRR, no MRG appreciated Resp: CTAB, unlabored Abd: Soft, NT, ND Ext: LLE edema ankle to upper estrada, cirumferential erythema with well-demarcated borders, no lymphangitic spread. Silghtly warm and tender to palpation around the laceration on her upper estrada. No underlying fluctuance appreciated. Erythema of the right estrada as well, not warm or tender. Laboratory Results - last 24 hr 05/15/20 05/15/20 03:20 03:20 WBC 8.0 RBC 4.16 Hgb 11.0 Hct 33.8 MCV 81.3 D MCH 26.5 D MCHC 32.7 RDW 20.2 H Plt Count 335 MPV 8.3 Absolute Neuts (auto) 3.8 Neutrophils % 48.0 Lymphocytes % 38.1 Monocytes % 8.4 Eosinophils % 4.6 H Basophils % 0.9 Nucleated RBC % 0 Sodium 139 Potassium 3.3 L Chloride 104 Carbon Dioxide 31 Anion Gap 5 L BUN 12.6 Creatinine 1.0 Est GFR (CKD-EPI)AfAm 70.91 Est GFR (CKD-EPI)NonAf 61.19 Random Glucose 104 Calcium 9.7 Total Bilirubin 0.5 AST 20 ALT 22 Alkaline Phosphatase 106 Total Protein 7.1 Albumin 3.4 ASSESSMENT AND PLAN: 59yoF with history of HTN, GERD, depression, anxiety, chronic venous insufficiency, and recurrent leg cellulitis with recent admission who presents with 1 week of worsening bilateral lower extremity redness and swel ling. Recurrent left leg cellulitis h/o MRSA 2017 No purulent drainage and no evidence of abscess currently Recently treated with clindamycin and Augmentin, no diagnostic culture data from prior episode - empiric clindamycin - f/u blood cultures - ID consult - elevate legs as tolerated Hypokalemia In setting of chlorthalidone use Mild, replete - replete potassium, repeat in AM Iron deficiency anemia Noted last admission, started on iron supplement Hgb improved from prior, now 11.0 from 9.6 - continue iron supplementation HTN: continue continue chlorthalidone Anxiety/depression: continue fluoxetine
--- NOTE | 2020-05-15 08:06 | HP ---
CHIEF COMPLAINT: Bilateral leg swelling and redness PCP: Trudy obrien HISTORY OF PRESENT ILLNESS: 59 year old female patient with past medical history of HTN, chronic venous insufficiency, GERD, and recurrent cellulitis of left lower extremity, who presented to the emergency room with a week and a half of bilateral leg swelling and redness. The patient had an admission at [facility] recently from 03/30/20 to 04/05/20, where she was discharged on Augmentin and Clindamycin, which the patient reports helped her. The patient also scraped recently the area under her left knee against her dresser, with drainage of clear fluid from the wound afterwards. She washed the wound under her left knee and tried bandaging it. She does not have a specialist for her legs and she does not go to a wound care clinic; but, would like a referral to a specialist for her legs. She has had cellulitis in her legs previously, with treatment at [facility] years ago for her legs. ER course was notable for: (1) Zosyn 4.5gm (2) (3) Recent Travel: PAST MEDICAL HISTORY: HTN, chronic venous insufficiency, GERD, recurrent cellulitis of left lower extremity PAST SURGICAL HISTORY: left lower extremity surgery, cholecystectomy Social History: Smokin/2 pack for 5 years and no longer smokes Alcohol: Denies Drugs: Denies Allergies Sulfa (Sulfonamide Antibiotics) Allergy (Severe, Verified 03/29/20 20:43) Hives HOME MEDICATIONS: Home Medications Medication Instructions Recorded Ascorbic Acid [Vitamin C] 250 mg PO BID 03/30/20 Chlorthalidone 25 mg PO DAILY 03/30/20 Fluoxetine HCl 20 mg PO DAILY 03/30/20 Amoxicillin/Potassium Clav 1 each PO BID 7 Days #14 tablet 04/05/20 [Augmentin 875-125 Tablet] Clindamycin [Cleocin -] 300 mg PO Q8H 7 Days #21 capsule 04/05/20 Docusate Sodium [Docusate 100 mg] 100 mg PO DAILY 30 Days #30 capsule 04/05/20 Ferrous Sulfate [Iron] 325 mg PO BID #30 tablet 04/05/20 Pantoprazole Sodium [Protonix -] 20 mg PO DAILY #30 tablet.ec 04/05/20 REVIEW OF SYSTEMS CONSTITUTIONAL: Absent: no body aches CARDIOVASCULAR: Absent: no chest pain RESPIRATORY: Absent: no shortness of breath GASTROINTESTINAL: Absent: no diarrhea, no constipation, no nausea, no vomiting GENITOURINARY: Absent: no dysuria NEUROLOGIC: Absent: no lightheadedness, no numbness PHYSICAL EXAMINATION Vital Signs - 24 hr 05/15/20 05/15/20 01:54 05:52 Temperature 98.0 F 98.8 F Pulse Rate 88 Pulse Rate [ 85 Right Radial] Respiratory 18 17 Rate Blood Pressure 140/70 Blood Pressure 148/79 [Left Arm] O2 Sat by Pulse 98 98 Oximetry (%) GENERAL: Awake, alert, and fully oriented, in no acute distress. HEAD: Normal with no signs of trauma. EYES: Pupils equal, round and reactive to light, extraocular movements intact, sclera anicteric, conjunctiva clear. No lid lag. EARS, NOSE, THROAT: Ears normal, nares patent, oropharynx clear without exudates. Moist mucous membranes. NECK: Normal range of motion, supple without lymphadenopathy, JVD, or masses. LUNGS: Breath sounds equal, clear to auscultation bilaterally. No wheezes, and no crackles. No accessory muscle use. HEART: Regular rate and rhythm, normal S1 and S2 without murmur, rub or gallop. ABDOMEN: Soft, nontender, not distended, normoactive bowel sounds, no guarding, no rebound, no masses. MUSCULOSKELETAL: Normal range of motion at all joints. No bony deformities or tenderness. UPPER EXTREMITIES: 2+ pulses, warm, well-perfused. No cyanosis. No clubbing. LOWER EXTREMITIES: 2+ pulses, warm, well-perfused. No calf tenderness. Bilateral leg swelling, warmth, and redness left leg worse than right. Bandaged wound under left knee. NEUROLOGICAL: Normal speech. PSYCHIATRIC: Cooperative. Good eye contact. Appropriate mood and affect. SKIN: Warm, dry, normal turgor, no rashes or lesions noted, normal capillary refill. Laboratory Results - last 24 hr 05/15/20 05/15/20 03:20 03:20 WBC 8.0 RBC 4.16 Hgb 11.0 Hct 33.8 MCV 81.3 D MCH 26.5 D MCHC 32.7 RDW 20.2 H Plt Count 335 MPV 8.3 Absolute Neuts (auto) 3.8 Neutrophils % 48.0 Lymphocytes % 38.1 Monocytes % 8.4 Eosinophils % 4.6 H Basophils % 0.9 Nucleated RBC % 0 Sodium 139 Potassium 3.3 L Chloride 104 Carbon Dioxide 31 Anion Gap 5 L BUN 12.6 Creatinine 1.0 Est GFR (CKD-EPI)AfAm 70.91 Est GFR (CKD-EPI)NonAf 61.19 Random Glucose 104 Calcium 9.7 Total Bilirubin 0.5 AST 20 ALT 22 Alkaline Phosphatase 106 Total Protein 7.1 Albumin 3.4 ASSESSMENT/PLAN: 59 year old female patient with past medical history of HTN, chronic venous insufficiency, GERD, and recurrent cellulitis of left lower extremity, who presented to the emergency room with a week and a half of bilateral leg swelling and redness. 1. Bilateral lower extremity cellulitis - Clindamycin - ID consulted 2. HTN - Chlorthalidone 3. Hypokalemia - PO KCl given 4. Anxiety/Depression - Fluoxetine #FEN - Monitoring Electrolytes. Sodium controlled diet. DVT PPx - Heparin SQ Family Medical History Family History: Denies Visit type - Emergency Visit Emergency Visit: Yes ED Registration Date: 05/15/20 Care time: The patient presented to the Emergency Department on the above date and was hospitalized for further evaluation of their emergent condition. - New Patient This patient is new to me today: Yes Date on this admission: 05/15/20 - Critical Care Critical Care patient: No ATTENDING PHYSICIAN STATEMENT I saw and evaluated the patient. I reviewed the resident's note and discussed the case with the resident. I agree with the resident's findings and plan as documented. SUBJECTIVE: OBJECTIVE: ASSESSMENT AND PLAN:
--- NOTE | 2020-05-15 08:55 | PN ---
Teaching Attending Note Name of Resident: Gregory Yap ATTENDING PHYSICIAN STATEMENT I saw and evaluated the patient. I reviewed the resident's note and discussed the case with the resident. I agree with the resident's findings and plan as documented. SUBJECTIVE: Patient is lying in bed with NAD , no fever or chills, no shortness of breath. c /o swelling of LEs with erythema , patient was on 0ral antibiotics as an outpatient Augmentin and clindamycin. OBJECTIVE: Vital Signs Temperature 98.8 F 05/15/20 05:52 Pulse Rate 85 05/15/20 05:52 Respiratory Rate 17 05/15/20 05:52 Blood Pressure 148/79 05/15/20 05:52 O2 Sat by Pulse Oximetry (%) 98 05/15/20 05:52 PE: per resident's note LE: swelling with redness, also skin tear of LLE CBCD WBC 8.0 K/mm3 (4.0-10.0) 05/15/20 03:20 RBC 4.16 M/mm3 (3.60-5.2) 05/15/20 03:20 Hgb 11.0 GM/dL (10.7-15.3) 05/15/20 03:20 Hct 33.8 % (32.4-45.2) 05/15/20 03:20 MCV 81.3 fl (80-96) D 05/15/20 03:20 MCHC 32.7 g/dl (32.0-36.0) 05/15/20 03:20 RDW 20.2 % (11.6-15.6) H 05/15/20 03:20 Plt Count 335 K/MM3 (134-434) 05/15/20 03:20 MPV 8.3 fl (7.5-11.1) 05/15/20 03:20 CMP Sodium 139 mmol/L (136-145) 05/15/20 03:20 Potassium 3.3 mmol/L (3.5-5.1) L 05/15/20 03:20 Chloride 104 mmol/L (98-107) 05/15/20 03:20 Carbon Dioxide 31 mmol/L (21-32) 05/15/20 03:20 Anion Gap 5 MMOL/L (8-16) L 05/15/20 03:20 BUN 12.6 mg/dL (7-18) 05/15/20 03:20 Creatinine 1.0 mg/dL (0.55-1.3) 05/15/20 03:20 Random Glucose 104 mg/dL (74-106) 05/15/20 03:20 Calcium 9.7 mg/dL (8.5-10.1) 05/15/20 03:20 Total Bilirubin 0.5 mg/dL (0.2-1) 05/15/20 03:20 AST 20 U/L (15-37) 05/15/20 03:20 ALT 22 U/L (13-61) 05/15/20 03:20 Alkaline Phosphatase 106 U/L (45-117) 05/15/20 03:20 Total Protein 7.1 g/dl (6.4-8.2) 05/15/20 03:20 Albumin 3.4 g/dl (3.4-5.0) 05/15/20 03:20 Current Medications Generic Name Dose Route Start Last Admin Trade Name Freq PRN Reason Stop Dose Admin Clindamycin HCl 300 mg 05/15/20 12:00 Cleocin - PO Q6HPO [facility] Docusate Sodium 300 mg 05/15/20 22:00 Colace - PO HS [facility] Ferrous Sulfate 325 mg 05/15/20 10:00 Feosol - PO BID [facility] Fluoxetine HCl 20 mg 05/15/20 10:00 Prozac - PO DAILY [facility] Heparin Sodium (Porcine) 5,000 unit 05/15/20 06:00 05/15/20 07:04 Heparin - SQ 5,000 unit TID [facility] Administration Ampicillin Sodium/Sulbactam 100 mls @ 200 mls/hr 05/15/20 10:00 Sodium 3 gm/ Sodium Chloride IVPB Q8H-IV ANA LAURA Lactobacillus Acidophilus 2 tab 05/15/20 10:00 Bacid - PO DAILY [facility] Home Medications Medication Instructions Recorded Ascorbic Acid [Vitamin C] 250 mg PO BID 03/30/20 Chlorthalidone 25 mg PO DAILY 03/30/20 Fluoxetine HCl 20 mg PO DAILY 03/30/20 Amoxicillin/Potassium Clav 1 each PO BID 7 Days #14 tablet 04/05/20 [Augmentin 875-125 Tablet] Clindamycin [Cleocin -] 300 mg PO Q8H 7 Days #21 capsule 04/05/20 Docusate Sodium [Docusate 100 mg] 100 mg PO DAILY 30 Days #30 capsule 04/05/20 Ferrous Sulfate [Iron] 325 mg PO BID #30 tablet 04/05/20 Pantoprazole Sodium [Protonix -] 20 mg PO DAILY #30 tablet.ec 04/05/20 ASSESSMENT AND PLAN: This patient is a 59yof with PMhx of Depression, HTN, chronic venous insufficiency, GERD, recurrent cellulitis, including history of MRSA presents with bl cellulitis ; L>R . # BL lower extremity Cellulitis L>R : on IV Unasyn and Clindamycin po, patient was discharged recently on oral antibiotics without any improvement, ID on the case. skin tear on LLE, will apply xerofoam daily # Iron Deficiency microcytic anemia: s/p IV Venofer replacement received x 3 on last admission. continue Iron supplement with colace # HTN - Chlorthalidone # Depression - continue Fluoxetine. DVT Px: Lovenox sq
[2020-05-15] MEDS ORDERED: FERROUS SO4 325 MG TABLET (FP) ONE (09:32)
[2020-05-15] MEDS ORDERED: ENOXAPARIN NA (PORCINE) 40 MG/0.4 ML DISP.SYRIN SQ ONE (09:33)
[2020-05-15] MEDS: CHLORTHALIDONE 25 MG TABLET PO SCH (09:44)
[2020-05-15] MEDS: FERROUS SO4 325 MG TABLET (FP) PO SCH ×2 (09:44→22:43)
[2020-05-15] MEDS: FLUoxetine HCL 20 MG CAPSULE PO SCH (09:44)
[2020-05-15] MEDS ORDERED: CHLORTHALIDONE 25 MG TABLET PO SCH (10:00)
[2020-05-15] MEDS ORDERED: PATIENT'S OWN MEDICATION (NON-FORMULARY) (Ferrous Sulfate [Iron] 325 MG) PO SCH (10:00)
[2020-05-15] MEDS: LACTOBACILLUS ACIDOPHILUS 1 TABLET PO SCH (10:07)
[2020-05-15] MEDS: AMPICILLIN NA/SULBACTAM NA 3 GM in SODIUM CHLORIDE 100 ML IVPB SCH ×2 (11:43→19:30)
[2020-05-15] MEDS: ENOXAPARIN NA (PORCINE) 40 MG/0.4 ML DISP.SYRIN SQ SCH (11:43)
[2020-05-15] MEDS: POTASSIUM CHLORIDE TABS 20 MEQ TABLET.ER (FP) PO SCH ×2 (11:43→22:43)
[2020-05-15] MEDS ORDERED: CLINDAMYCIN HCL 150 MG CAPSULE (FP) ONE (12:40)
[2020-05-15] MEDS ORDERED: ACETAMINOPHEN 325 MG TABLET (FP) ONE (12:40)
[2020-05-15] MEDS: ACETAMINOPHEN 325 MG TABLET (FP) PO PRN (12:52)
[2020-05-15] MEDS: CLINDAMYCIN HCL 150 MG CAPSULE (FP) PO SCH ×3 (12:52→23:22)
--- NOTE | 2020-05-15 12:55 | EKG ---
Test Reason : Blood Pressure : / mmHG Vent. Rate : 075 BPM Atrial Rate : 075 BPM P-R Int : 224 ms QRS Dur : 110 ms QT Int : 394 ms P-R-T Axes : 022 026 056 degrees QTc Int : 439 ms SINUS RHYTHM WITH 1ST DEGREE A-V BLOCK OTHERWISE NORMAL ECG WHEN COMPARED WITH ECG OF 29-MAR-2020 23:37, SINUS RHYTHM HAS REPLACED JUNCTIONAL RHYTHM NONSPECIFIC T WAVE ABNORMALITY NO LONGER EVIDENT IN INFERIOR LEADS Confirmed by MD TIFFANIE, TRAVIS ([id number]) on 05/15/2020 12:55:20 PM Referred By: Confirmed By:TRAVIS MORENO MD
--- NOTE | 2020-05-15 13:48 | PN ---
Physical Exam: SUBJECTIVE: Patient seen and examined at bedside. No acute events reported overnight. OBJECTIVE: Vital Signs Period Temp Pulse Resp BP Sys/P[place]man Pulse Ox Last 24 Hr 97.6 F-98.8 F 76-88 17-20 123-148/70-80 98-99 GENERAL: AAOx3, in no acute distress. tangential pressured speech HEENT: NCAT, PERRLA, EOMI, sclera anicteric, conjunctiva clear, oropharynx clear w/o exudates. MMM. poor dentition NECK: Normal ROM, supple, no lymphadenopathy, JVD, or masses LUNGS: CTABL no wheezes/ rhonchi/ rales. No distress, speaks in full sentences. No increased work of breathing. HEART: RRR, normal S1 S2, no M/R/G, peripheral pulses 2+ and equal b/l ABDOMEN: Soft, NTND, + BS. No guarding or rebound. No hepatomegaly or splenomegaly. MSK: ROM WNL EXTREMITIES: LLE edema ankle to mid estrada. yellow dressing below the knee, patient refused examination of wound b/l erymthema of legs L more than R NEUROLOGICAL: CN II-XII intact. Normal speech, normal gait, no focal sensorimotor deficits. SKIN: Warm, Dry, normal turgor, no rashes or lesions noted Laboratory Results - last 24 hr CBC, BMP 05/15/20 03:20 05/15/20 03:20 05/15/20 05/15/20 03:20 03:20 WBC 8.0 RBC 4.16 Hgb 11.0 Hct 33.8 MCV 81.3 D MCH 26.5 D MCHC 32.7 RDW 20.2 H Plt Count 335 MPV 8.3 Absolute Neuts (auto) 3.8 Neutrophils % 48.0 Lymphocytes % 38.1 Monocytes % 8.4 Eosinophils % 4.6 H Basophils % 0.9 Nucleated RBC % 0 Sodium 139 Potassium 3.3 L Chloride 104 Carbon Dioxide 31 Anion Gap 5 L BUN 12.6 Creatinine 1.0 Est GFR (CKD-EPI)AfAm 70.91 Est GFR (CKD-EPI)NonAf 61.19 Random Glucose 104 Calcium 9.7 Total Bilirubin 0.5 AST 20 ALT 22 Alkaline Phosphatase 106 Total Protein 7.1 Albumin 3.4 Active Medications Generic Name Dose Route Start Last Admin Trade Name Freq PRN Reason Stop Dose Admin Acetaminophen 650 mg 05/15/20 09:55 05/15/20 12:52 Tylenol - PO 650 mg Q6H PRN Administration Fever Or Pain Chlorthalidone 25 mg 05/15/20 10:00 05/15/20 09:44 [place] - PO 25 mg DAILY ANA LAURA Administration Clindamycin HCl 300 mg 05/15/20 12:00 05/15/20 12:52 Cleocin - PO 300 mg Q6HPO ANA LAURA Administration Docusate Sodium 300 mg 05/15/20 22:00 Colace - PO HS ANA LAURA Enoxaparin Sodium 40 mg 05/15/20 10:00 05/15/20 11:43 Lovenox - SQ 40 mg DAILY ANA LAURA Administration Ferrous Sulfate 325 mg 05/15/20 10:00 05/15/20 09:44 Feosol - PO 325 mg BID ANA LAURA Administration Fluoxetine HCl 20 mg 05/15/20 10:00 05/15/20 09:44 Prozac - PO 20 mg DAILY ANA LAURA Administration Ampicillin Sodium/Sulbactam 100 mls @ 200 mls/hr 05/15/20 10:00 05/15/20 11:43 Sodium 3 gm/ Sodium Chloride IVPB 200 mls/hr Q8H-IV ANA LAURA Administration Lactobacillus Acidophilus 2 tab 05/15/20 10:00 05/15/20 10:07 Bacid - PO 2 tab DAILY ANA LAURA Administration Potassium Chloride 20 meq 05/15/20 10:00 05/15/20 11:43 K-Dur - PO 05/16/20 22:01 20 meq BID ANA LAURA Administration ASSESSMENT/PLAN: 59yoF with history of HTN, GERD, depression, anxiety, chronic venous insufficiency, and recurrent leg cellulitis with recent admission who presents with 1 week of worsening bilateral lower extremity redness and swelling. #Recurrent left leg cellulitis -Recently treated with clindamycin and Augmentin -ID consulted --> f/u ID recs -current abx: oral clindamycin and unasyn -f/u blood cultures -elevate legs as tolerated #Hypokalemia -repleted today -continue to monitor and replete as necessary #HTN -continue Chlorthalidone #Iron deficiency anemia -pt is on home iron supplement -current Hgb: 11 -continue iron supplementation -continue to monitor Hg #Anxiety/Depression -continue fluoxetine #FEN -no standing fluids -Monitor Electrolytes; replete PRN -Sodium controlled diet. Prophylaxis -DVT: Heparin SQ dispo-monitor in m/s Visit type - Emergency Visit Emergency Visit: No - New Patient This patient is new to me today: Yes Date on this admission: 05/15/20 - Critical Care Critical Care patient: No ATTENDING PHYSICIAN STATEMENT I saw and evaluated the patient. I reviewed the resident's note and discussed the case with the resident. I agree with the resident's findings and plan as documented. SUBJECTIVE: OBJECTIVE: ASSESSMENT AND PLAN:
--- NOTE | 2020-05-15 14:02 | CON.ID ---
Consult Consult Specialty:: infectious diseases Referred by:: hospitalist Reason for Consultation:: cellulitis and wound of the leg - History of Present Illness Chief Complaint: pain and swelling and injury to the leg History of Present Illness: 59 year old female patient with past medical history of HTN, chronic venous insufficiency, GERD, and recurrent cellulitis of left lower extremity, who presented to the emergency room with a week and a half of bilateral leg swelling and redness. The patient had an admission at [facility] recently from 03/30/20 to 04/05/20, where she was discharged on Augmentin and Clindamycin, which the [facility] ient reports helped her. The patient also scraped recently the area under her left knee against her dresser, with drainage of clear fluid from the wound afterwards. She washed the wound under her left knee and tried bandaging it. currently the patient is also feeling nauseous pain in the leg - History Source History Provided By: Patient Limitations to Obtaining History: No Limitations - Past Medical History Cardio/Vascular: Yes: HTN Gastrointestinal: Yes: GERD - Past Surgical History Past Surgical History: Yes: Cholecystectomy (2003) - Alcohol/Substance Use Hx Alcohol Use: No - Smoking History Smoking history: Never smoked Have you smoked in the past 12 months: No If you are a former smoker, when did you quit?: 16 years ago - Social History ADL: Independent History of Recent Travel: No Home Medications - Allergies Allergies/Adverse Reactions: Allergies Allergy/AdvReac Type Severity Reaction Status Date / Time Sulfa (Sulfonamide Allergy Severe Hives Verified 03/29/20 20:43 Antibiotics) - Home Medications Home Medications: Ambulatory Orders Chlorthalidone 25 mg PO DAILY 03/30/20 Fluoxetine HCl 20 mg PO DAILY 03/30/20 Ferrous Sulfate [Iron] 325 mg PO BID #30 tablet 04/05/20 Naproxen 500 mg PO Q12H 05/15/20 Review of Systems - Review of Systems Constitutional: reports: No Symptoms Eyes: reports: No Symptoms HENT: reports: No Symptoms Neck: reports: No Symptoms Cardiovascular: reports: No Symptoms Respiratory: reports: No Symptoms Gastrointestinal: reports: No Symptoms Genitourinary: reports: No Symptoms Musculoskeletal: reports: Other Integumentary: reports: Erythema, Wound Neurological: reports: No Symptoms Endocrine: reports: No Symptoms Hematology/Lymphatic: reports: No Symptoms Psychiatric: reports: No Symptoms Physical Exam Vital Signs: Vital Signs Temperature 97.6 F 05/15/20 11:50 Pulse Rate 76 05/15/20 11:50 Respiratory Rate 20 05/15/20 11:50 Blood Pressure 123/80 05/15/20 11:50 O2 Sat by Pulse Oximetry (%) 99 05/15/20 11:50 Constitutional: Yes: Well Nourished, Calm, Mild Distress Eyes: Yes: Conjunctiva Clear HENT: Yes: Atraumatic, Normocephalic Neck: Yes: Supple, Trachea Midline Cardiovascular: Yes: Regular Rate and Rhythm Respiratory: Yes: Regular, CTA Bilaterally Gastrointestinal: Yes: Normal Bowel Sounds, Soft Musculoskeletal: Yes: WNL Extremities: Yes: Erythema, Other (wound on the leg) Integumentary: Yes: Skin Tear, Other Wound/Incision: Yes: Dressing Dry and Intact, Dressing Removed Neurological: Yes: Alert, Oriented Psychiatric: Yes: Alert, Oriented Labs: CBC, BMP 05/15/20 03:20 05/15/20 03:20 Assessment/Plan 59yoF with history of HTN, GERD, depression, anxiety, chronic venous insufficiency, and recurrent leg cellulitis with recent admission who presents with 1 week of worsening bilateral lower extremity redness and swelling. left leg cellulitis hpokalemia htn iron deficiency anemia plan patient received clinda continue current abx wound care monitor for nausea rest as per the team
[2020-05-15] MEDS ORDERED: PT OWN MED DRAWER 7, Y5N ONE (22:05)
[2020-05-15] MEDS: DOCUSATE SODIUM 100 MG CAPSULE (FP) PO SCH ×2 (22:43→22:48)
[2020-05-15] MEDS: NAPROXEN 500 MG TABLET PO SCH (22:43)
[2020-05-15 23:04] VITALS: BMI 26.1
[2020-05-16] MEDS: AMPICILLIN NA/SULBACTAM NA 3 GM in SODIUM CHLORIDE 100 ML IVPB SCH ×3 (02:18→18:09)
[2020-05-16] MEDS: ACETAMINOPHEN 325 MG TABLET (FP) PO PRN (02:26)
[2020-05-16] MEDS: CLINDAMYCIN HCL 150 MG CAPSULE (FP) PO SCH (06:28)
[2020-05-16 08:26] LABS: BASO % 1.1 % (0-2.0); BLOOD UREA NITROGEN 10.7 mg/dL (7-18); CALCIUM 9.1 mg/dL (8.5-10.1); CREATININE 0.9 mg/dL (0.55-1.3); EOS % 4.7 % (0-4.5); HEMATOCRIT 33.8 % (32.4-45.2); HEMOGLOBIN 11.2 GM/dL (10.7-15.3); LYMPH % 32.1 % (8-40); MAGNESIUM 2.2 mg/dL (1.8-2.4); MCH 26.8 pg (25.7-33.7); MEAN CELL VOLUME 81.2 fl (80-96); MEAN PLT VOLUME 8.5 fl (7.5-11.1); NEUT % 50.1 % (42.8-82.8); PHOSPHOROUS 2.9 mg/dL (2.5-4.9); PLATELET COUNT 305 K/MM3 (134-434); POTASSIUM 3.8 mmol/L (3.5-5.1); RBC 4.16 M/mm3 (3.60-5.2); RDW 20.3 % (11.6-15.6); WHITE BLOOD COUNT 5.5 K/mm3 (4.0-10.0)
--- NOTE | 2020-05-16 08:58 | PN ---
Progress Note, Physician History of Present Illness: stable no new issues dressing removed ,wound looks clean - Current Medication List Current Medications: Active Medications Acetaminophen (Tylenol -) 650 mg PO Q6H PRN PRN Reason: Fever Or Pain Last Admin: 05/16/20 02:26 Dose: 650 mg Documented by: Chlorthalidone (Hygroton -) 25 mg PO DAILY [facility] Last Admin: 05/15/20 09:44 Dose: 25 mg Documented by: Clindamycin HCl (Cleocin -) 300 mg PO Q6HPO [facility] Last Admin: 05/16/20 06:28 Dose: 300 mg Documented by: Docusate Sodium (Colace -) 300 mg PO HS [facility] Last Admin: 05/15/20 22:48 Dose: Not Given Documented by: Enoxaparin Sodium (Lovenox -) 40 mg SQ DAILY [facility] Last Admin: 05/15/20 11:43 Dose: 40 mg Documented by: Ferrous Sulfate (Feosol -) 325 mg PO BID [facility] Last Admin: 05/15/20 22:43 Dose: 325 mg Documented by: Fluoxetine HCl (Prozac -) 20 mg PO DAILY [facility] Last Admin: 05/15/20 09:44 Dose: 20 mg Documented by: Ampicillin Sodium/Sulbactam (Sodium 3 gm/ Sodium Chloride) 100 mls @ 200 mls/hr IVPB Q8H-IV [facility] Last Admin: 05/16/20 02:18 Dose: 200 mls/hr Documented by: Lactobacillus Acidophilus (Bacid -) 2 tab PO DAILY [facility] Last Admin: 05/15/20 10:07 Dose: 2 tab Documented by: Naproxen (Naprosyn -) 500 mg PO BID [facility] Last Admin: 05/15/20 22:43 Dose: 500 mg Documented by: Potassium Chloride (K-Dur -) 20 meq PO BID [facility] Stop: 05/16/20 22:01 Last Admin: 05/15/20 22:43 Dose: 20 meq Documented by: - Objective Vital Signs: Vital Signs Temperature 97.5 F L 05/16/20 06:00 Pulse Rate 84 05/16/20 06:00 Respiratory Rate 20 05/16/20 06:00 Blood Pressure 130/78 05/16/20 06:00 O2 Sat by Pulse Oximetry (%) 95 05/16/20 06:00 Constitutional: Yes: No Distress, Calm Cardiovascular: Yes: S1, S2 Respiratory: Yes: Regular, CTA Bilaterally Gastrointestinal: Yes: Normal Bowel Sounds, Soft Musculoskeletal: Yes: WNL Extremities: Yes: Other Integumentary: Yes: Other (wound) Wound/Incision: Yes: Dressing Dry and Intact, Other Neurological: Yes: Alert, Oriented Psychiatric: Yes: Alert, Oriented Labs: CBC, BMP 05/16/20 07:19 05/16/20 07:19 Assessment/Plan 59yoF with history of HTN, GERD, depression, anxiety, chronic venous insufficiency, and recurrent leg cellulitis with recent admission who presents with 1 week of worsening bilateral lower extremity redness and swelling. left leg cellulitis hpokalemia htn iron deficiency anemia plan will stop clinda will d/w the team
[2020-05-16] MEDS ORDERED: PT OWN MED DRAWER 7, Y5N ONE ×4 (09:36→20:38)
[2020-05-16] MEDS: LACTOBACILLUS ACIDOPHILUS 1 TABLET PO SCH (09:49)
[2020-05-16] MEDS: CHLORTHALIDONE 25 MG TABLET PO SCH (09:50)
[2020-05-16] MEDS: POTASSIUM CHLORIDE TABS 20 MEQ TABLET.ER (FP) PO SCH ×2 (09:50→21:27)
[2020-05-16] MEDS: FERROUS SO4 325 MG TABLET (FP) PO SCH ×2 (09:50→21:29)
[2020-05-16] MEDS: FLUoxetine HCL 20 MG CAPSULE PO SCH (09:51)
[2020-05-16] MEDS: ENOXAPARIN NA (PORCINE) 40 MG/0.4 ML DISP.SYRIN SQ SCH (09:51)
[2020-05-16] MEDS: NAPROXEN 500 MG TABLET PO SCH ×2 (11:58→21:27)
--- NOTE | 2020-05-16 13:20 | PN ---
Physical Exam: SUBJECTIVE: Patient seen and examined at bedside. No acute events reported overnight. This morning, patient reports improvement of her symptoms. OBJECTIVE: Vital Signs Period Temp Pulse Resp BP Sys/Pittman Pulse Ox Last 24 Hr 97.5 F-98.0 F 82-90 20-20 127-140/76-83 95-99 GENERAL: AAOx3, in no acute distress. tangential pressured speech HEENT: NCAT, PERRLA, EOMI, sclera anicteric, conjunctiva clear, oropharynx clear w/o exudates. MMM. poor dentition NECK: Normal ROM, supple, no lymphadenopathy, JVD, or masses LUNGS: CTABL no wheezes/ rhonchi/ rales. No distress, speaks in full sentences. No increased work of breathing. HEART: RRR, normal S1 S2, no M/R/G, peripheral pulses 2+ and equal b/l ABDOMEN: Soft, NTND, + BS. No guarding or rebound. No hepatomegaly or splenomegaly. MSK: ROM WNL EXTREMITIES: LLE edema ankle to mid estrada. yellow dressing below the knee, patient refused examination of wound b/l erymthema of legs L more than R- improved from yesterday NEUROLOGICAL: CN II-XII intact. Normal speech, normal gait, no focal sensorimotor deficits. SKIN: Warm, Dry, normal turgor, no rashes or lesions noted Laboratory Results - last 24 hr CBC, BMP 05/16/20 07:19 05/16/20 07:19 05/15/20 05/16/20 05/16/20 06:25 07:19 07:19 WBC 5.5 RBC 4.16 Hgb 11.2 Hct 33.8 MCV 81.2 MCH 26.8 MCHC 33.0 RDW 20.3 H Plt Count 305 MPV 8.5 Absolute Neuts (auto) 2.7 Neutrophils % 50.1 Lymphocytes % 32.1 Monocytes % 12.0 H Eosinophils % 4.7 H Basophils % 1.1 Nucleated RBC % 0 Sodium 140 Potassium 3.8 Chloride 105 Carbon Dioxide 29 Anion Gap 6 L BUN 10.7 Creatinine 0.9 Est GFR (CKD-EPI)AfAm 80.55 Est GFR (CKD-EPI)NonAf 69.50 Random Glucose 74 Calcium 9.1 Phosphorus 2.9 Magnesium 2.2 COVID-19 (MARTHA) Not detected Active Medications Generic Name Dose Route Start Last Admin Trade Name Beni PRN Reason Stop Dose Admin Acetaminophen 650 mg 05/15/20 09:55 05/16/20 02:26 Tylenol - PO 650 mg Q6H PRN Administration Fever Or Pain Chlorthalidone 25 mg 05/15/20 10:00 05/16/20 09:50 Hygroton - PO 25 mg DAILY [facility] Administration Docusate Sodium 300 mg 05/15/20 22:00 05/15/20 22:48 Colace - PO Not Given HS ANA LAURA Enoxaparin Sodium 40 mg 05/15/20 10:00 05/16/20 09:51 Lovenox - SQ 40 mg DAILY [facility] Administration Ferrous Sulfate 325 mg 05/15/20 10:00 05/16/20 09:50 Feosol - PO 325 mg BID A[facility] Administration Fluoxetine HCl 20 mg 05/15/20 10:00 05/16/20 09:51 Prozac - PO 20 mg DAILY [facility] Administration Ampicillin Sodium/Sulbactam 100 mls @ 200 mls/hr 05/15/20 10:00 05/16/20 11:58 Sodium 3 gm/ Sodium Chloride IVPB 200 mls/hr Q8H-IV [facility] Administration Lactobacillus Acidophilus 2 tab 05/15/20 10:00 05/16/20 09:49 Bacid - PO 2 tab DAILY [facility] Administration Naproxen 500 mg 05/15/20 22:00 05/16/20 11:58 Naprosyn - PO 500 mg BID [facility] Administration Potassium Chloride 20 meq 05/15/20 10:00 05/16/20 09:50 K-Dur - PO 05/16/20 22:01 20 meq BID A[facility] Administration ASSESSMENT/PLAN: 59yoF with history of HTN, GERD, depression, anxiety, chronic venous insufficiency, and recurrent leg cellulitis with recent admission who presents with 1 week of worsening bilateral lower extremity redness and swe lling. #Recurrent left leg cellulitis -current abx: IV unasyn -ID: d/c clindamycin -f/u blood cultures -elevate legs as tolerated #Hypokalemia -resolved -continue to monitor and replete as necessary #HTN -continue Chlorthalidone #Iron deficiency anemia -pt is on home iron supplement -current Hgb: 11 -continue iron supplementation -continue to monitor Hg #Anxiety/Depression -continue fluoxetine #FEN -no standing fluids -Monitor Electrolytes; replete PRN -Sodium controlled diet. Prophylaxis -DVT: Heparin SQ dispo-monitor in m/s Visit type - Emergency Visit Emergency Visit: No - New Patient This patient is new to me today: No - Critical Care Critical Care patient: No ATTENDING PHYSICIAN STATEMENT I saw and evaluated the patient. I reviewed the resident's note and discussed the case with the resident. I agree with the resident's findings and plan as documented. SUBJECTIVE: OBJECTIVE: ASSESSMENT AND PLAN:
--- NOTE | 2020-05-16 17:11 | PN ---
Teaching Attending Note Name of Resident: Gregory Yap ATTENDING PHYSICIAN STATEMENT I saw and evaluated the patient. I reviewed the resident's note and discussed the case with the resident. I agree with the resident's findings and plan as documented. SUBJECTIVE: Patient is comfortable with NAD. No fever or chills, no shortness of breath. OBJECTIVE: Vital Signs Temperature 98.5 F 05/16/20 14:00 Pulse Rate 90 05/16/20 14:00 Respiratory Rate 20 05/16/20 14:00 Blood Pressure 120/69 05/16/20 14:00 O2 Sat by Pulse Oximetry (%) 99 05/16/20 14:00 PE: per resident's note CBCD WBC 5.5 K/mm3 (4.0-10.0) 05/16/20 07:19 RBC 4.16 M/mm3 (3.60-5.2) 05/16/20 07:19 Hgb 11.2 GM/dL (10.7-15.3) 05/16/20 07:19 Hct 33.8 % (32.4-45.2) 05/16/20 07:19 MCV 81.2 fl (80-96) 05/16/20 07:19 MCHC 33.0 g/dl (32.0-36.0) 05/16/20 07:19 RDW 20.3 % (11.6-15.6) H 05/16/20 07:19 Plt Count 305 K/MM3 (134-434) 05/16/20 07:19 MPV 8.5 fl (7.5-11.1) 05/16/20 07:19 CMP Sodium 140 mmol/L (136-145) 05/16/20 07:19 Potassium 3.8 mmol/L (3.5-5.1) 05/16/20 07:19 Chloride 105 mmol/L (98-107) 05/16/20 07:19 Carbon Dioxide 29 mmol/L (21-32) 05/16/20 07:19 Anion Gap 6 MMOL/L (8-16) L 05/16/20 07:19 BUN 10.7 mg/dL (7-18) 05/16/20 07:19 Creatinine 0.9 mg/dL (0.55-1.3) 05/16/20 07:19 Random Glucose 74 mg/dL (74-106) 05/16/20 07:19 Calcium 9.1 mg/dL (8.5-10.1) 05/16/20 07:19 Total Bilirubin 0.5 mg/dL (0.2-1) 05/15/20 03:20 AST 20 U/L (15-37) 05/15/20 03:20 ALT 22 U/L (13-61) 05/15/20 03:20 Alkaline Phosphatase 106 U/L (45-117) 05/15/20 03:20 Total Protein 7.1 g/dl (6.4-8.2) 05/15/20 03:20 Albumin 3.4 g/dl (3.4-5.0) 05/15/20 03:20 Current Medications Generic Name Dose Route Start Last Admin Trade Name Freq PRN Reason Stop Dose Admin Acetaminophen 650 mg 05/15/20 09:55 05/16/20 02:26 Tylenol - PO 650 mg Q6H PRN Administration Fever Or Pain Chlorthalidone 25 mg 05/15/20 10:00 05/16/20 09:50 Hygroton - PO 25 mg DAILY [facility] Administration Docusate Sodium 300 mg 05/15/20 22:00 05/15/20 22:48 Colace - PO Not Given HS [facility] Enoxaparin Sodium 40 mg 05/15/20 10:00 05/16/20 09:51 Lovenox - SQ 40 mg DAILY [facility] Administration Ferrous Sulfate 325 mg 05/15/20 10:00 05/16/20 09:50 Feosol - PO 325 mg BID [facility] Administration Fluoxetine HCl 20 mg 05/15/20 10:00 05/16/20 09:51 Prozac - PO 20 mg DAILY [facility] Administration Ampicillin Sodium/Sulbactam 100 mls @ 200 mls/hr 05/15/20 10:00 05/16/20 11:58 Sodium 3 gm/ Sodium Chloride IVPB 200 mls/hr Q8H-IV [facility] Administration Lactobacillus Acidophilus 2 tab 05/15/20 10:00 05/16/20 09:49 Bacid - PO 2 tab DAILY [facility] Administration Naproxen 500 mg 05/15/20 22:00 05/16/20 11:58 Naprosyn - PO 500 mg BID [facility] Administration Potassium Chloride 20 meq 05/15/20 10:00 05/16/20 09:50 K-Dur - PO 05/16/20 22:01 20 meq BID A[facility] Administration Home Medications Medication Instructions Recorded Chlorthalidone 25 mg PO DAILY 03/30/20 Fluoxetine HCl 20 mg PO DAILY 03/30/20 Ferrous Sulfate [Iron] 325 mg PO BID #30 tablet 04/05/20 Naproxen 500 mg PO Q12H 05/15/20 Microbiology 05/15/20 03:20 Blood - Peripheral Venous Blood Culture - Preliminary NO GROWTH OBTAINED AFTER 24 HOURS, INCUBATION TO CONTINUE FOR 4 DAYS. 05/15/20 03:20 Blood - Peripheral Venous Blood Culture - Preliminary NO GROWTH OBTAINED AFTER 24 HOURS, INCUBATION TO CONTINUE FOR 4 DAYS. ASSESSMENT AND PLAN: This patient is a 59yof with PMhx of Depression, HTN, chronic venous insufficiency, GERD, recurrent cellulitis, including history of MRSA presents with bl cellulitis ; L>R . # BL lower extremity Cellulitis L>R : on IV Unasyn continue s/p Clindamycin. patient was discharged recently on oral antibiotics without any improvement, ID on the case. skin tear on LLE, will apply xerofoam daily # Iron Deficiency microcytic anemia: s/p IV Venofer replacement received x 3 on last admission. continue Iron supplement with colace # HTN - Chlorthalidone # Depression - continue Fluoxetine. DVT Px: Lovenox sq possible dc in am
[2020-05-16] MEDS: DOCUSATE SODIUM 100 MG CAPSULE (FP) PO SCH (21:27)
[2020-05-17] MEDS: AMPICILLIN NA/SULBACTAM NA 3 GM in SODIUM CHLORIDE 100 ML IVPB SCH ×3 (01:21→17:07)
[2020-05-17 08:13] LABS: BASO % 0.9 % (0-2.0); EOS % 6.1 % (0-4.5); HEMATOCRIT 34.6 % (32.4-45.2); HEMOGLOBIN 11.1 GM/dL (10.7-15.3); LYMPH % 24.9 % (8-40); MCH 26.2 pg (25.7-33.7); MCHC 32.2 g/dl (32.0-36.0); MEAN CELL VOLUME 81.3 fl (80-96); MEAN PLT VOLUME 8.1 fl (7.5-11.1); MONO % 12.4 % (3.8-10.2); NEUT % 55.7 % (42.8-82.8); PLATELET COUNT 322 K/MM3 (134-434); RBC 4.25 M/mm3 (3.60-5.2); RDW 19.9 % (11.6-15.6); WHITE BLOOD COUNT 6.6 K/mm3 (4.0-10.0)
[2020-05-17 08:49] LABS: BLOOD UREA NITROGEN 11.9 mg/dL (7-18); CALCIUM 9.3 mg/dL (8.5-10.1); CREATININE 0.9 mg/dL (0.55-1.3); POTASSIUM 4.1 mmol/L (3.5-5.1)
[2020-05-17] MEDS ORDERED: PT OWN MED DRAWER 7, Y5N ONE ×2 (09:54→17:04)
[2020-05-17] MEDS: FLUoxetine HCL 20 MG CAPSULE PO SCH (09:55)
[2020-05-17] MEDS: FERROUS SO4 325 MG TABLET (FP) PO SCH (09:55)
[2020-05-17] MEDS: ENOXAPARIN NA (PORCINE) 40 MG/0.4 ML DISP.SYRIN SQ SCH (09:56)
[2020-05-17] MEDS: NAPROXEN 500 MG TABLET PO SCH (09:56)
[2020-05-17] MEDS: LACTOBACILLUS ACIDOPHILUS 1 TABLET PO SCH (09:57)
[2020-05-17] MEDS: CHLORTHALIDONE 25 MG TABLET PO SCH (09:57)
--- NOTE | 2020-05-17 10:09 | PN ---
Progress Note, Physician History of Present Illness: stable no new issues - Current Medication List Current Medications: Active Medications Acetaminophen (Tylenol -) 650 mg PO Q6H PRN PRN Reason: Fever Or Pain Last Admin: 05/16/20 02:26 Dose: 650 mg Documented by: Chlorthalidone (Hygroton -) 25 mg PO DAILY [facility] Last Admin: 05/17/20 09:57 Dose: 25 mg Documented by: Docusate Sodium (Colace -) 300 mg PO HS [facility] Last Admin: 05/16/20 21:27 Dose: 300 mg Documented by: Enoxaparin Sodium (Lovenox -) 40 mg SQ DAILY [facility] Last Admin: 05/17/20 09:56 Dose: 40 mg Documented by: Ferrous Sulfate (Feosol -) 325 mg PO BID [facility] Last Admin: 05/17/20 09:55 Dose: 325 mg Documented by: Fluoxetine HCl (Prozac -) 20 mg PO DAILY [facility] Last Admin: 05/17/20 09:55 Dose: 20 mg Documented by: Ampicillin Sodium/Sulbactam (Sodium 3 gm/ Sodium Chloride) 100 mls @ 200 mls/hr IVPB Q8H-IV [facility] Last Admin: 05/17/20 09:58 Dose: 200 mls/hr Documented by: Lactobacillus Acidophilus (Bacid -) 2 tab PO DAILY [facility] Last Admin: 05/17/20 09:57 Dose: 2 tab Documented by: Naproxen (Naprosyn -) 500 mg PO BID [facility] Last Admin: 05/17/20 09:56 Dose: 500 mg Documented by: - Objective Vital Signs: Vital Signs Temperature 97.6 F 05/17/20 06:00 Pulse Rate 76 05/17/20 06:00 Respiratory Rate 18 05/17/20 06:00 Blood Pressure 128/73 05/17/20 06:00 O2 Sat by Pulse Oximetry (%) 100 05/17/20 06:39 Constitutional: Yes: No Distress, Calm Cardiovascular: Yes: S1, S2 Respiratory: Yes: Regular, CTA Bilaterally Gastrointestinal: Yes: Normal Bowel Sounds, Soft Musculoskeletal: Yes: WNL Extremities: Yes: Other Wound/Incision: Yes: Dressing Dry and Intact Neurological: Yes: Alert, Oriented Psychiatric: Yes: Alert, Oriented Labs: CBC, BMP 05/17/20 07:24 05/17/20 07:24 Assessment/Plan 59yoF with history of HTN, GERD, depression, anxiety, chronic venous insufficiency, and recurrent leg cellulitis with recent admission who presents with 1 week of worsening bilateral lower extremity redness and swell ing. left leg cellulitis hpokalemia htn iron deficiency anemia plan continue unasyn wound care rest as per the team
--- NOTE | 2020-05-17 15:13 | DS ---
Physical Exam: SUBJECTIVE: Patient seen and examined at bedside. No acute events reported overnight. OBJECTIVE: Vital Signs Period Temp Pulse Resp BP Sys/Pittman Pulse Ox Last 24 Hr 97.3 F-98.3 F 75-88 18-20 118-128/65-79 95-100 PHYSICAL EXAM GENERAL: AAOx3, in no acute distress. tangential pressured speech HEENT: NCAT, PERRLA, EOMI, sclera anicteric, conjunctiva clear, oropharynx clear w/o exudates. MMM. poor dentition NECK: Normal ROM, supple, no lymphadenopathy, JVD, or masses LUNGS: CTABL no wheezes/ rhonchi/ rales. No distress, speaks in full sentences. No increased work of breathing. HEART: RRR, normal S1 S2, no M/R/G, peripheral pulses 2+ and equal b/l ABDOMEN: Soft, NTND, + BS. No guarding or rebound. No hepatomegaly or splenomegaly. MSK: ROM WNL EXTREMITIES: LLE edema ankle to mid estrada. yellow dressing below the knee, patient refused examination of wound b/l erymthema of legs L more than R- improved from yesterday NEUROLOGICAL: CN II-XII intact. Normal speech, normal gait, no focal sensorimotor deficits. SKIN: Warm, Dry, normal turgor, no rashes or lesions noted LABS Laboratory Results - last 24 hr CBC, BMP 05/17/20 07:24 05/17/20 07:24 05/17/20 05/17/20 07:24 07:24 WBC 6.6 RBC 4.25 Hgb 11.1 Hct 34.6 MCV 81.3 MCH 26.2 MCHC 32.2 RDW 19.9 H Plt Count 322 MPV 8.1 Absolute Neuts (auto) 3.7 Neutrophils % 55.7 Lymphocytes % 24.9 D Monocytes % 12.4 H Eosinophils % 6.1 H Basophils % 0.9 Nucleated RBC % 0 Sodium 143 Potassium 4.1 Chloride 108 H Carbon Dioxide 27 Anion Gap 7 L BUN 11.9 Creatinine 0.9 Est GFR (CKD-EPI)AfAm 80.55 Est GFR (CKD-EPI)NonAf 69.50 Random Glucose 78 Calcium 9.3 HOSPITAL COURSE: 59yoF with history of HTN, GERD, depression, anxiety, chronic venous insufficiency, and recurrent leg cellulitis with recent admission who presents with 1 week of worsening bilateral lower extremity redness and swelling. Patient received IV unasyn for antibiotic treatment and was followed by ID. Blood cultures were drawn which were negative for any growth. Patient had hypokalemia at admission which resolved with PO Potassium Chloride. Patient was restarted on her home medications Chlorthalidone and fluoxetine during her stay. Patients hemoglobin was also monitored during her stay as she has a history of FRANCY. Hemoglobin was stable around 11 during her stay. Patient was on a sodium controlled diet during her stay. Patient was discharged on Augmentin 875-125 BID for 7 days and instructions given for wound care. Date of Admission:05/15/20 05/15/20- Vascular Study- no evidence of DVT 05/15/20-EKG- sinus rhythm with 1st degree AV block Date of Discharge: 05/17/20 Minutes to complete discharge: 36 Discharge Summary Problems reviewed: Yes Reason For Visit: REDNESS AND SWELLING OF LOWER LEG, CELLULITIS Current Active Problems Cellulitis (Acute) Condition: Stable - Instructions Diet, Activity, Other Instructions: Your visit: You were admitted to the hospital for leg pain and a wound on your leg. We found that you have cellulitis in your Left leg wound. You were treated with antibiotics with improvement of your symptoms. Additional Imaging Findings: -During your visit, we did an EKG which showed an abnormal heart rhythm. Please follow-up with your Primary Care Physician about this. Medications changes: -Please continue to take Augmentin 875-125mg antibiotic; take 1 pill two times per day. -Continue to take all other home medications as prescribed. -Please put Xeroform dressing on your wound. Please wrap a nylon bag around your wound before your shower. Keep the area clean and dry. Follow up: - Please follow-up with your infectious disease doctor, Dr. Martinez, in 1 week. - Visit with your Primary Care Provider in 2 weeks. If you do not have a primary care provider you may make an appointment with Dr. Edmond at the [facility] clinic located at [address] [place] [address] ([phone]). Additional Instructions: -You are being discharged to your home. -Please return to the Emergency Department if you experience worsening pain, fevers, chills, shortness of breath, or chest pain, or if you experience any worsening, new or concerning symptoms. Referrals: Juanita Martinez MD [Staff Physician] - Disposition: VNS/HOME HEALTH CARE - Home Medications Comprehensive Discharge Medication List: Ambulatory Orders Chlorthalidone 25 mg PO DAILY 03/30/20 Fluoxetine HCl 20 mg PO DAILY 03/30/20 Ferrous Sulfate [Iron] 325 mg PO BID #30 tablet 04/05/20 Naproxen 500 mg PO Q12H 05/15/20 Amoxicillin/Potassium Clav [Augmentin 875-125 Tablet] 1 each PO BID 7 Days #14 tablet 05/17/20 This patient is new to me today: No Emergency Visit: No Critical Care patient: No - Discharge Referral Referred to [facility] Med [facility].C[facility] No ATTENDING PHYSICIAN STATEMENT I saw and evaluated the patient. I reviewed the resident's note and discussed the case with the resident. I agree with the resident's findings and plan as documented. SUBJECTIVE: OBJECTIVE: ASSESSMENT AND PLAN:
[2020-05-17 17:44] VITALS: BP 129/74; PULSE 71; TEMP 98.4
--- NOTE | 2020-05-17 18:00 | PN ---
Teaching Attending Note Name of Resident: Gregory Yap ATTENDING PHYSICIAN STATEMENT I saw and evaluated the patient. I reviewed the resident's note and discussed the case with the resident. I agree with the resident's findings and plan as documented. SUBJECTIVE: Patient is comfortable with NAD , no fever or chills OBJECTIVE: Vital Signs Temperature 98.4 F 05/17/20 16:43 Pulse Rate 71 05/17/20 16:43 Respiratory Rate 20 05/17/20 16:43 Blood Pressure 129/74 05/17/20 16:43 O2 Sat by Pulse Oximetry (%) 98 05/17/20 16:43 PE: per resident's note RLE is no longer warm to touch , 1+ edema , LLE+ skin tear xeroform applied CBCD WBC 6.6 K/mm3 (4.0-10.0) 05/17/20 07:24 RBC 4.25 M/mm3 (3.60-5.2) 05/17/20 07:24 Hgb 11.1 GM/dL (10.7-15.3) 05/17/20 07:24 Hct 34.6 % (32.4-45.2) 05/17/20 07:24 MCV 81.3 fl (80-96) 05/17/20 07:24 MCHC 32.2 g/dl (32.0-36.0) 05/17/20 07:24 RDW 19.9 % (11.6-15.6) H 05/17/20 07:24 Plt Count 322 K/MM3 (134-434) 05/17/20 07:24 MPV 8.1 fl (7.5-11.1) 05/17/20 07:24 CMP Sodium 143 mmol/L (136-145) 05/17/20 07:24 Potassium 4.1 mmol/L (3.5-5.1) 05/17/20 07:24 Chloride 108 mmol/L (98-107) H 05/17/20 07:24 Carbon Dioxide 27 mmol/L (21-32) 05/17/20 07:24 Anion Gap 7 MMOL/L (8-16) L 05/17/20 07:24 BUN 11.9 mg/dL (7-18) 05/17/20 07:24 Creatinine 0.9 mg/dL (0.55-1.3) 05/17/20 07:24 Random Glucose 78 mg/dL (74-106) 05/17/20 07:24 Calcium 9.3 mg/dL (8.5-10.1) 05/17/20 07:24 Total Bilirubin 0.5 mg/dL (0.2-1) 05/15/20 03:20 AST 20 U/L (15-37) 05/15/20 03:20 ALT 22 U/L (13-61) 05/15/20 03:20 Alkaline Phosphatase 106 U/L (45-117) 05/15/20 03:20 Total Protein 7.1 g/dl (6.4-8.2) 05/15/20 03:20 Albumin 3.4 g/dl (3.4-5.0) 05/15/20 03:20 Current Medications Generic Name Dose Route Start Last Admin Trade Name Freq PRN Reason Stop Dose Admin Acetaminophen 650 mg 05/15/20 09:55 05/16/20 02:26 Tylenol - PO 650 mg Q6H PRN Administration Fever Or Pain Chlorthalidone 25 mg 05/15/20 10:00 05/17/20 09:57 Hygroton - PO 25 mg DAILY ANA LAURA Administration Docusate Sodium 300 mg 05/15/20 22:00 05/16/20 21:27 Colace - PO 300 mg HS ANA LAURA Administration Enoxaparin Sodium 40 mg 05/15/20 10:00 05/17/20 09:56 Lovenox - SQ 40 mg DAILY ANA LAURA Administration Ferrous Sulfate 325 mg 05/15/20 10:00 05/17/20 09:55 Feosol - PO 325 mg BID ANA LAURA Administration Fluoxetine HCl 20 mg 05/15/20 10:00 05/17/20 09:55 Prozac - PO 20 mg DAILY ANA LAURA Administration Ampicillin Sodium/Sulbactam 100 mls @ 200 mls/hr 05/15/20 10:00 05/17/20 17:07 Sodium 3 gm/ Sodium Chloride IVPB 200 mls/hr Q8H-IV ANA [facility] Administration Lactobacillus Acidophilus 2 tab 05/15/20 10:00 05/17/20 09:57 Bacid - PO 2 tab DAILY ANA [facility]URA Administration Naproxen 500 mg 05/15/20 22:00 05/17/20 09:56 Naprosyn - PO 500 mg BID ANA LAURA Administration Home Medications Medication Instructions Recorded Chlorthalidone 25 mg PO DAILY 03/30/20 Fluoxetine HCl 20 mg PO DAILY 03/30/20 Ferrous Sulfate [Iron] 325 mg PO BID #30 tablet 04/05/20 Naproxen 500 mg PO Q12H 05/15/20 Amoxicillin/Potassium Clav 1 each PO BID 7 Days #14 tablet 05/17/20 [Augmentin 875-125 Tablet] Bismuth Tribromoph/Petrolatum 1 each TP DAILY 7 Days #7 bandage 05/17/20 [Xeroform Petrolatum Dress] Assessment and plan: This patient is a 59yof with PMhx of Depression, HTN, chronic venous insufficiency, GERD, recurrent cellulitis, including history of MRSA presents with bl cellulitis ; L>R . # BL lower extremity Cellulitis L>R : improved on IV Unasyn. will dc patient home on po augment for 7 more days with food . skin tear on LLE, will apply xerofoam daily # Iron Deficiency microcytic anemia: s/p IV Venofer replacement received x 3 on last admission. continue Iron supplement with colace # HTN - Chlorthalidone # Depression : continue Fluoxetine. DVT Px: Lovenox sq dc patient home with VNS
== END 2020-05-17 20:33 | disposition home health service (06) | DRG 383 ==
LOC: JER 01:42 → JERBED 04:27 → J8W 21:22
PROVIDERS: ADMIT Hospitalist; ATTEND Internal Medicine
DX: L03.115 Cellulitis of right lower limb (principal); L03.116 Cellulitis of left lower limb; E87.6 Hypokalemia; D50.9 Iron deficiency anemia, unspecified; K21.9 Gastro-esophageal reflux disease without esophagitis; I10 Essential (primary) hypertension; F41.8 Other specified anxiety disorders
CPT/HCPCS: 36415; 80048; 80053; 83735; 84100; 85025; 87040; 93005; 93010; 93971-TC; 99285-25; J1644; U0003

== ENCOUNTER 2021-04-25 18:54 | Inpatient (IN) | payer OTHER ==
[2021-04-25] MEDS ORDERED: ACETAMINOPHEN 1000 MG/100 ML VIAL (NON FORMULARY) IVPB ONE (20:42)
[2021-04-25] MEDS ORDERED: CEFTRIAXONE 1 GM in DEXTROSE 5%-WATER - 50 ML IVPB ONE (20:54)
[2021-04-25] MEDS ORDERED: ACETAMINOPHEN INJECTION 100 ML IVPB ONE (21:13)
[2021-04-25] MEDS ORDERED: CEFTRIAXONE 1 GM/50 ML BAG ONE (21:13)
[2021-04-25 21:42] LABS: HEMATOCRIT 29.3 % (32.4-45.2); HEMOGLOBIN 9.5 GM/dL (10.7-15.3); MCH 24.3 pg (25.7-33.7); MCHC 32.3 g/dl (32.0-36.0); MEAN CELL VOLUME 75.1 fl (80-96); PLATELET COUNT 439 10^3/uL (134-434); RBC 3.89 M/mm3 (3.60-5.2); RDW 16.6 % (11.6-15.6); WHITE BLOOD COUNT 11.9 K/mm3 (4.0-10.0)
[2021-04-25 22:00] LABS: INR 1.15 (0.83-1.09); PROTHROMBIN TIME (PATIENT) 13.9 SEC (9.7-13.0)
[2021-04-25 22:01] LABS: ALBUMIN 3.5 g/dl (3.4-5.0); BLOOD UREA NITROGEN 22.8 mg/dL (7-18); CALCIUM 9.5 mg/dL (8.5-10.1)
[2021-04-25 22:05] LABS: CREATININE 1.4 mg/dL (0.55-1.3)
[2021-04-25 22:06] LABS: BILIRUBIN,TOTAL 0.4 mg/dL (0.2-1); TOT PROT 7.4 g/dl (6.4-8.2)
[2021-04-25] MEDS ORDERED: FUROSEMIDE 40 MG/4 ML INJECTABLE VIAL IVPUSH ONE (22:13)
[2021-04-25] MEDS ORDERED: FUROSEMIDE 40 MG/4 ML INJECTABLE VIAL ONE (22:25)
[2021-04-26] MEDS ORDERED: CLINDAMYCIN 600MG PREMIX IVPB 600 MG/50 ML BAG IVPB ONE (03:43)
[2021-04-26] MEDS ORDERED: HEPARIN NA (PORCINE) 5,000 UNITS/ML 1ML VIAL ONE (03:43)
[2021-04-26] MEDS: CLINDAMYCIN 600MG PREMIX IVPB 600 MG/50 ML BAG IVPB SCH ×2 (04:00→10:43)
[2021-04-26] MEDS: HEPARIN NA (PORCINE) 5,000 UNITS/ML 1ML VIAL SQ SCH ×4 (04:01→21:09)
[2021-04-26] MEDS ORDERED: LISINOPRIL 20 MG TABLET PO ONE (04:13)
[2021-04-26 06:00] VITALS: BMI 27.0
[2021-04-26 09:33] LABS: BASO % 0.9 % (0-2.0); EOS % 2.5 % (0-4.5); HEMATOCRIT 29.8 % (32.4-45.2); HEMOGLOBIN 9.9 GM/dL (10.7-15.3); LYMPH % 25.6 % (8-40); MCH 24.7 pg (25.7-33.7); MCHC 33.2 g/dl (32.0-36.0); MEAN CELL VOLUME 74.4 fl (80-96); MEAN PLT VOLUME 8.1 fl (7.5-11.1); MONO % 7.6 % (3.8-10.2); NEUT % 63.4 % (42.8-82.8); PLATELET COUNT 467 10^3/uL (134-434); RDW 16.5 % (11.6-15.6); WHITE BLOOD COUNT 10.5 K/mm3 (4.0-10.0)
[2021-04-26] MEDS ORDERED: CHLORTHALIDONE 25 MG TABLET PO SCH (10:00)
[2021-04-26] MEDS ORDERED: amLODIPine BESYLATE 5 MG TABLET (FP) PO SCH (10:00)
[2021-04-26 10:08] LABS: BLOOD UREA NITROGEN 21.3 mg/dL (7-18); CALCIUM 8.9 mg/dL (8.5-10.1)
[2021-04-26 10:09] LABS: ALBUMIN 3.4 g/dl (3.4-5.0); MAGNESIUM 2.3 mg/dL (1.8-2.4)
[2021-04-26 10:11] LABS: CREATININE 1.5 mg/dL (0.55-1.3)
[2021-04-26 10:12] LABS: BILIRUBIN,TOTAL 0.7 mg/dL (0.2-1); PHOSPHOROUS 3.9 mg/dL (2.5-4.9)
[2021-04-26 10:13] LABS: TOT PROT 7.4 g/dl (6.4-8.2)
[2021-04-26] MEDS ORDERED: PT OWN MED DRAWER 7, Y5N ONE (10:19)
[2021-04-26] MEDS ORDERED: FERROUS GLUCONATE 324 MG TAB (FP) PO SCH (10:45)
[2021-04-26] MEDS: ASCORBIC ACID 250 MG TABLET (FP) PO SCH (11:18)
[2021-04-26] MEDS: PANTOPRAZOLE 40 MG TABLET PO SCH (11:18)
[2021-04-26] MEDS: FERROUS SO4 325 MG TABLET (FP) PO SCH (11:18)
[2021-04-26 13:00] LABS: PH,URINE 5.5 (5.0-8.0); URINE APPEARANCE CLEAR; URINE BILIRUBIN NEGATIVE (NEGATIVE); URINE COLOR YELLOW; URINE GLUCOSE (UA) NEGATIVE (NEGATIVE); URINE KETONE NEGATIVE (NEGATIVE); URINE LEUK ESTERASE NEGATIVE (NEGATIVE); URINE NITRITE NEGATIVE (NEGATIVE); URINE PROTEIN NEGATIVE (NEGATIVE); URINE UROBILINOGEN 0.2 mg/dL (0.2-1.0)
[2021-04-26] MEDS ORDERED: POTASSIUM CHLORIDE TABS 10 MEQ TABLET.ER (FP) PO ONE (14:29)
[2021-04-26] MEDS ORDERED: SODIUM CHLORIDE 0.45% 1,000 ML IV SCH (14:30)
[2021-04-26] MEDS ORDERED: ceFAZolin SODIUM 1 GM VIAL ONE (17:53)
[2021-04-26] MEDS ORDERED: DEXTROSE 5%-WATER - 50 ML IVPB ONE (17:53)
[2021-04-26] MEDS ORDERED: CEFAZOLIN 1 GM/D5W 1 GM/50 ML BAG IVPB SCH (18:00)
[2021-04-26] MEDS: CEFAZOLIN 1 GM in DEXTROSE 5%-WATER - 50 ML IVPB SCH (19:05)
[2021-04-26] MEDS ORDERED: LISINOPRIL 20 MG TABLET PO SCH (22:00)
[2021-04-27] MEDS ORDERED: ceFAZolin SODIUM 1 GM VIAL ONE ×3 (01:13→17:50)
[2021-04-27] MEDS ORDERED: DEXTROSE 5%-WATER - 50 ML IVPB ONE ×3 (01:13→17:50)
[2021-04-27] MEDS: CEFAZOLIN 1 GM in DEXTROSE 5%-WATER - 50 ML IVPB SCH ×3 (01:23→17:52)
[2021-04-27] MEDS: HEPARIN NA (PORCINE) 5,000 UNITS/ML 1ML VIAL SQ SCH ×3 (06:02→21:13)
[2021-04-27 06:39] LABS: CREATININE, URINE RANDOM 87.6 mg/dL (30-150)
[2021-04-27 10:36] LABS: BASO % 0.9 % (0-2.0); EOS % 4.1 % (0-4.5); HEMOGLOBIN 9.8 GM/dL (10.7-15.3); LYMPH % 29.1 % (8-40); MCH 24.5 pg (25.7-33.7); MCHC 32.6 g/dl (32.0-36.0); MEAN CELL VOLUME 75.4 fl (80-96); MEAN PLT VOLUME 8.1 fl (7.5-11.1); NEUT % 58.9 % (42.8-82.8); PLATELET COUNT 419 10^3/uL (134-434); RBC 3.98 M/mm3 (3.60-5.2); RDW 16.7 % (11.6-15.6); WHITE BLOOD COUNT 7.4 K/mm3 (4.0-10.0)
[2021-04-27 11:03] LABS: CALCIUM 9.2 mg/dL (8.5-10.1)
[2021-04-27 11:04] LABS: BLOOD UREA NITROGEN 18.9 mg/dL (7-18)
[2021-04-27 11:07] LABS: CREATININE 1.2 mg/dL (0.55-1.3)
[2021-04-27] MEDS: FERROUS SO4 325 MG TABLET (FP) PO SCH (11:27)
[2021-04-27] MEDS: PANTOPRAZOLE 40 MG TABLET PO SCH (11:27)
[2021-04-27] MEDS: amLODIPine BESYLATE 10 MG TABLET (FP) PO SCH (11:27)
[2021-04-27] MEDS: ASCORBIC ACID 250 MG TABLET (FP) PO SCH (11:28)
[2021-04-27] MEDS: ACETAMINOPHEN 325 MG TABLET (FP) PO PRN (21:13)
[2021-04-28] MEDS ORDERED: ceFAZolin SODIUM 1 GM VIAL ONE ×3 (01:45→17:34)
[2021-04-28] MEDS ORDERED: DEXTROSE 5%-WATER - 50 ML IVPB ONE ×3 (01:46→17:35)
[2021-04-28] MEDS: CEFAZOLIN 1 GM in DEXTROSE 5%-WATER - 50 ML IVPB SCH ×3 (01:58→17:40)
[2021-04-28] MEDS: HEPARIN NA (PORCINE) 5,000 UNITS/ML 1ML VIAL SQ SCH ×3 (06:06→22:31)
[2021-04-28] MEDS: FERROUS SO4 325 MG TABLET (FP) PO SCH (10:13)
[2021-04-28] MEDS: PANTOPRAZOLE 40 MG TABLET PO SCH (10:14)
[2021-04-28] MEDS: ASCORBIC ACID 250 MG TABLET (FP) PO SCH (10:14)
[2021-04-28 11:10] LABS: BLOOD UREA NITROGEN 17.6 mg/dL (7-18); CALCIUM 9.8 mg/dL (8.5-10.1)
[2021-04-28 11:14] LABS: CREATININE 1.1 mg/dL (0.55-1.3)
[2021-04-28] MEDS: amLODIPine BESYLATE 10 MG TABLET (FP) PO SCH (12:16)
[2021-04-29] MEDS ORDERED: ceFAZolin SODIUM 1 GM VIAL ONE ×3 (02:31→20:16)
[2021-04-29] MEDS ORDERED: DEXTROSE 5%-WATER - 50 ML IVPB ONE ×3 (02:31→20:16)
[2021-04-29] MEDS: CEFAZOLIN 1 GM in DEXTROSE 5%-WATER - 50 ML IVPB SCH ×3 (02:43→20:22)
[2021-04-29] MEDS: HEPARIN NA (PORCINE) 5,000 UNITS/ML 1ML VIAL SQ SCH ×3 (06:32→21:17)
[2021-04-29 09:19] LABS: BASO % 1.1 % (0-2.0); EOS % 4.6 % (0-4.5); HEMATOCRIT 29.1 % (32.4-45.2); HEMOGLOBIN 9.6 GM/dL (10.7-15.3); LYMPH % 34.2 % (8-40); MCH 24.7 pg (25.7-33.7); MCHC 32.9 g/dl (32.0-36.0); MEAN PLT VOLUME 7.6 fl (7.5-11.1); MONO % 9.4 % (3.8-10.2); NEUT % 50.7 % (42.8-82.8); PLATELET COUNT 506 10^3/uL (134-434); RBC 3.88 M/mm3 (3.60-5.2); RDW 16.8 % (11.6-15.6); WHITE BLOOD COUNT 6.4 K/mm3 (4.0-10.0)
[2021-04-29 10:03] LABS: ALBUMIN 3.2 g/dl (3.4-5.0); BLOOD UREA NITROGEN 20.2 mg/dL (7-18); CALCIUM 9.3 mg/dL (8.5-10.1)
[2021-04-29 10:08] LABS: BILIRUBIN,TOTAL 0.3 mg/dL (0.2-1); TOT PROT 6.9 g/dl (6.4-8.2)
[2021-04-29] MEDS ORDERED: PT OWN MED DRAWER 7, Y5N ONE (10:33)
[2021-04-29] MEDS: PANTOPRAZOLE 40 MG TABLET PO SCH (10:53)
[2021-04-29] MEDS: amLODIPine BESYLATE 10 MG TABLET (FP) PO SCH (10:53)
[2021-04-29] MEDS: FERROUS SO4 325 MG TABLET (FP) PO SCH (10:53)
[2021-04-29] MEDS: FLUoxetine HCL 20 MG CAPSULE PO SCH (10:53)
[2021-04-29] MEDS: ASCORBIC ACID 250 MG TABLET (FP) PO SCH (10:53)
[2021-04-29] MEDS: ACETAMINOPHEN 325 MG TABLET (FP) PO PRN (21:00)
[2021-04-30] MEDS ORDERED: DEXTROSE 5%-WATER - 50 ML IVPB ONE ×2 (02:10→10:02)
[2021-04-30] MEDS ORDERED: ceFAZolin SODIUM 1 GM VIAL ONE ×2 (02:10→10:02)
[2021-04-30] MEDS: CEFAZOLIN 1 GM in DEXTROSE 5%-WATER - 50 ML IVPB SCH ×3 (03:09→18:56)
[2021-04-30] MEDS: HEPARIN NA (PORCINE) 5,000 UNITS/ML 1ML VIAL SQ SCH ×2 (06:14→15:34)
[2021-04-30] MEDS ORDERED: PT OWN MED DRAWER 7, Y5N ONE (10:02)
[2021-04-30] MEDS: PANTOPRAZOLE 40 MG TABLET PO SCH (10:33)
[2021-04-30] MEDS: ASCORBIC ACID 250 MG TABLET (FP) PO SCH (10:33)
[2021-04-30] MEDS: amLODIPine BESYLATE 10 MG TABLET (FP) PO SCH (10:33)
[2021-04-30] MEDS: FERROUS SO4 325 MG TABLET (FP) PO SCH (10:33)
[2021-04-30] MEDS: FLUoxetine HCL 20 MG CAPSULE PO SCH (10:33)
[2021-04-30] MEDS ORDERED: MINERAL OIL/PETROLAT/WATER TOPICAL CREAM 454 GM JAR TP PRN (11:16)
[2021-04-30 11:19] LABS: BASO % 1.2 % (0-2.0); EOS % 6.1 % (0-4.5); HEMATOCRIT 27.9 % (32.4-45.2); HEMOGLOBIN 9.3 GM/dL (10.7-15.3); LYMPH % 40.2 % (8-40); MCH 25.1 pg (25.7-33.7); MCHC 33.3 g/dl (32.0-36.0); MEAN CELL VOLUME 75.3 fl (80-96); MEAN PLT VOLUME 7.8 fl (7.5-11.1); MONO % 8.4 % (3.8-10.2); NEUT % 44.1 % (42.8-82.8); PLATELET COUNT 460 10^3/uL (134-434); RDW 16.9 % (11.6-15.6); WHITE BLOOD COUNT 5.9 K/mm3 (4.0-10.0)
[2021-04-30 11:33] LABS: ALBUMIN 3.2 g/dl (3.4-5.0); BLOOD UREA NITROGEN 22.1 mg/dL (7-18)
[2021-04-30 11:35] LABS: CALCIUM 9.5 mg/dL (8.5-10.1)
[2021-04-30 11:36] LABS: CREATININE 1.1 mg/dL (0.55-1.3)
[2021-04-30 11:37] LABS: BILIRUBIN,TOTAL 0.4 mg/dL (0.2-1); TOT PROT 6.6 g/dl (6.4-8.2)
[2021-04-30 15:41] VITALS: PULSE 87
[2021-04-30 18:41] VITALS: BP 119/65; TEMP 97.8
== END 2021-04-30 21:30 | disposition home or self-care (01) | DRG 383 ==
LOC: JER 18:54 → JERBED 23:58 → J5S 04-26 04:55
PROVIDERS: ADMIT Internal Medicine; ATTEND Internal Medicine
DX: L03.116 Cellulitis of left lower limb (principal); N17.9 Acute kidney failure, unspecified; I12.9 Hypertensive chronic kidney disease with stage 1 through stage 4 chronic kidney disease, or unspecified chronic kidney disease; N18.9 Chronic kidney disease, unspecified; M79.604 Pain in right leg; M79.605 Pain in left leg; K21.9 Gastro-esophageal reflux disease without esophagitis; D50.9 Iron deficiency anemia, unspecified; I73.9 Peripheral vascular disease, unspecified; F41.9 Anxiety disorder, unspecified; I44.0 Atrioventricular block, first degree
CPT/HCPCS: 36415; 71045-TC-FY; 76775-TC; 76856-TC; 80048; 80053; 81003; 82436; 82550; 82570; 82607; 82728; 82746; 83010; 83540; 83550; 83615; 83735; 84100; 84133; 84156; 84300; 85025; 85027; 85045; 85379; 85610; 85730; 93005; 93010; 93306-TC; 93971-TC; 99285-25; C9803; J0131; J1644; U0003; U0005

== ENCOUNTER 2022-04-05 21:24 | Emergency (ER) | payer OTHER ==
[2022-04-05 21:39] VITALS: BP 152/80; PULSE 96; RESP 19; TEMP 98.5; BMI 23.6
== END 2022-04-05 23:48 | disposition home or self-care (01) ==
LOC: JER 21:24 → JERFT 21:24
DX: R05.1 Acute cough (principal); J34.89 Other specified disorders of nose and nasal sinuses; J04.0 Acute laryngitis
CPT/HCPCS: 71046-TC-FY; 87651; 99284-25